=== PATIENT | male | born 1950 | race Caucasian/White ===

== ENCOUNTER 2023-09-18 11:41 | Inpatient (IN) | payer MEDICARE, MEDICAID, SELFPAY ==
[2023-09-18] VITALS (15 sets, daily range): BP systolic 121–136; BP diastolic 56–83; PULSE 63–128; RESP 14–42; TEMP 35.9–37.6; O2SAT 93–97; BMI 39.4; BMI 34.7
--- NOTE | 2023-09-18 11:56 | ED_ITS ---
HPI - SOB/Dyspnea General Chief Complaint: Shortness of Breath/Dyspnea Stated Complaint: Weakness Time Seen by Provider: 09/18/23 11:44 Source: patient, EMS, RN notes reviewed and old records reviewed Mode of arrival: EMS History of Present Illness HPI Narrative: 72-year-old male history of diabetes, BPH, hypertension, dyslipidemia, COPD on Symbicort and Advair with complaint of shortness of breath, cough, fever congestion for the past 3-4 days. Does normally use an inhaler but was having trouble using it today. He has had several falls recently with increasing generalized weakness. Patient has not hit his head. No loss of consciousness. Denies chest pain, does feel short of breath. Patient states he has had a cough, he states it has been productive it has been clear with no color changes. He describes generalized body aches little bit worse than usual but no pain except with cough in his chest. He has had increased shortness breath. No syncope. Denies new abdominal pain, no nausea or vomiting no other GI or urinary symptoms reported. No new swelling of extremities. Related Data Allergies Allergy/AdvReac Type Severity Reaction Status Date / Time No Known Drug Allergies Allergy Verified 09/18/23 13:24 Review of Systems Review of Systems ROS Unobtainable: All systems reviewed & are unremarkable except as noted in HPI and below Patient History Social History Smoking Status: Former smoker Exam Narrative Exam Narrative: GEN: Elderly appearing male, alert and oriented x 3, patient appears to be in moderate distress. HEENT: Atraumatic, pupils are equal round reactive to light, extraocular movements are intact, nares are clear, there is no conjunctival pallor. Throat is clear without any exudates, erythema, tonsillar enlargement or uvular deviation HEART: Tachycardic Regular rate and rhythm without murmur, clicks, rubs. pulses are equal in upper and lower extremities LUNGS:Lungs clear to auscultation, no wheezes, rales, crackles, chest moves symmetrically, positive for tachypnea. Positive for dry cough. ABD:bowel sounds normal, soft, non-tender, no guarding, rebound, rigidity, no masses noted, no hepatosplenomegaly :No CVA tenderness MSCL: Non-tender, no muscle atrophy, muscles strength 5/5 upper and lower extremities, full range of motion, globally weak, has difficulty standing safely at the side of the bed to urinate but moving all extremities normally. NEURO:CN 2-12 intact, sensation normal SKIN: Patient has multiple abrasions on upper extremities. Initial Vital Signs Initial Vital Signs: Vital Signs Pulse Rate 124 H 09/18/23 11:51 Pulse Oximetry 94 09/18/23 11:51 Course Orders Ordered: ED Orders 09/18/23 11:49 Respiratory Panel (Film Array) Stat 09/18/23 11:55 XR chest 1V Stat 09/18/23 12:05 Urinalysis and Microscopic Stat Urine Culture Stat 09/18/23 13:10 Complete Blood Count AUTO DIFF Stat Comprehensive Metabolic Panel Stat Lactate (Lactic Acid) Stat Lipase Stat NT-proBNP (BNP-Adult 18+) Stat PTT Partial Thromboplastin Luiz Stat Procalcitonin Stat Prothrombin Time INR Stat Troponin & CK Cardiac Panel Stat 09/18/23 13:35 Blood Culture Stat 09/18/23 14:31 CT kidney ureter bladder (KUB) Stat 09/18/23 15:10 Trop I [Troponin I] Stat Discontinued Medications Azithromycin (Azithromycin 250 Mg Tablet) 500 mg PO NOW ONE Stop: 09/18/23 13:18 Last Admin: 09/18/23 13:38 Dose: 500 mg Documented By: HORACIO Ceftriaxone Sodium 1,000 mg/ (Sodium Chloride) 100 mls @ 200 mls/hr IV NOW ONE Stop: 09/18/23 13:17 Last Infusion: 09/18/23 14:35 Dose: Infused Documented By: Admin: 09/18/23 13:39 Dose: 200 mls/hr Documented By: HORACIO Sodium Chloride (Normal Saline 0.9%) 1,000 mls @ 1,000 mls/hr IV BOLUS ONE Stop: 09/18/23 15:30 Last Admin: 09/18/23 15:41 Dose: 1,000 mls/hr Documented By: KARINA Methylprednisolone (Methylprednisolone 125 Mg/2 Ml Vial) 125 mg IV NOW ONE Stop: 09/18/23 12:05 Last Admin: 09/18/23 13:23 Dose: 125 mg Documented By: HORACIO Vital Signs Vital signs: Vital Signs - 8 hr 09/18/23 11:51 09/18/23 11:54 09/18/23 12:00 Temperature 99.7 F H Pulse Rate 124 H 122 H 128 H Respiratory Rate 14 Blood Pressure 128/83 Pulse Oximetry 94 96 97 Oxygen Delivery Method Room Air 09/18/23 12:08 09/18/23 12:08 09/18/23 12:30 Temperature Pulse Rate 114 H Respiratory Rate 39 H Blood Pressure 131/60 136/70 Pulse Oximetry 97 Oxygen Delivery Method 09/18/23 12:30 09/18/23 13:00 09/18/23 13:00 Temperature Pulse Rate 119 H 112 H Respiratory Rate 36 H Blood Pressure 134/65 Pulse Oximetry 96 94 Oxygen Delivery Method 09/18/23 13:30 09/18/23 14:00 09/18/23 14:30 Temperature Pulse Rate 109 H 99 H 102 H Respiratory Rate 26 H 42 H Blood Pressure Pulse Oximetry 97 93 96 Oxygen Delivery Method 09/18/23 15:39 09/18/23 15:40 09/18/23 15:40 Temperature Pulse Rate 90 91 H Respiratory Rate 28 H 24 Blood Pressure 135/69 Pulse Oximetry 96 94 Oxygen Delivery Method MDM - SOB/Dyspnea Lab Data 09/18/23 13:10 09/18/23 13:10 Labs: Lab Results 09/18/23 09/18/23 09/18/23 Range/Units 11:49 12:05 13:10 WBC 10.3 (4.5-11.0) X10^3/uL RBC 4.44 L (4.5-5.9) X10^6/uL Hgb 10.6 L (13.5-17.5) g/dL Hct 33.9 L (41-53) % MCV 76.5 L (80-100) fL MCH 23.9 L (26-34) PG MCHC 31.2 (30-36) % RDW 19.8 H (11.6-14.8) % Plt Count 234 (150-400) X10^3/uL Neut % (Auto) 81.7 H (50-75) % Lymph % (Auto) 6.3 L (25-40) % [place] % (Auto) 11.6 (3-14) % Eos % (Auto) 0.0 L (2-4) % Baso % (Auto) 0.4 (0-2) % Neut # (Auto) 8400 H (8053-4998) /uL Lymph # (Auto) 700 L (3699-0292) /uL [place] # (Auto) 1200 H (0-900) /uL Eos # (Auto) 0 (0-450) /uL Baso # (Auto) 0 (0-100) /uL PT 12.9 H (9.4-12.5) SECONDS INR 1.1 (0.9-1.3) APTT 27 (25.1-36.5) SECONDS Sodium 135 L (137-145) mmol/L Potassium 4.8 (3.4-5.1) mmol/L Chloride 104 (98-107) mmol/L Carbon Dioxide 20 L (22-32) mmol/L BUN 54 H (9-20) mg/dL Creatinine 2.18 H (0.66-1.25) mg/dL Estimated GFR 32 L (>60) mL/min BUN/Creatinine Ratio 24.8 H (6-22) Glucose 112 H (80-110) mg/dL Lactate 3.3 H (0.7-2.1) mmol/L Calcium 9.0 (8.4-10.2) mg/dL Total Bilirubin 0.8 (0.2-1.3) mg/dL AST 50 (17-59) IU/L ALT 24 (<50) IU/L Alkaline Phosphatase 98 (38-126) U/L Total Creatine Kinase 191 H (55-170) U/L Troponin I 0.035 H (0.01-0.034) ng/mL NT-Pro-B Natriuret Pep 1080 H (<125) pg/mL Total Protein 7.4 (6.3-8.2) g/dL Albumin 3.9 (3.5-5.0) g/dL Globulin 3.5 (1.7-4.1) g/dL Albumin/Globulin Ratio 1.1 (1.0-2.8) Lipase 39 (23-300) U/L Procalcitonin 5.49 H (<0.5) ng/mL Urine Color Yellow Urine Appearance Cloudy Urine pH 5.0 (4.5-8.0) Ur Specific [place] 1.020 (1.000-1.035) Urine Protein 1+ H (Negative) Urine Glucose (UA) Negative (Negative) g/dL Urine Ketones Negative (NEGATIVE) Urine Occult Blood 2+ H (Negative) Urine Nitrate Negative (Negative) Urine Bilirubin Negative (NEGATIVE) Urine Urobilinogen 0.2 (0.2) E.U./dL Ur Leukocyte Esterase 2+ H (NEGATIVE) Urine RBC 5-10/hpf H (0-5/HPF) Urine WBC 5-10/hpf H (0-5/HPF) Ur Squamous Epith Cells 1-5 /hpf (0-5/HPF) Urine Bacteria Many (>30) H (None) Ur Culture Indicated? Specimen cultured Vol Urine Centrifuged 10ml (spun) Chlamy pneumoniae PCR Not detected (Not Detect) Adenovirus (PCR) Not detected (Not Detect) B.parapertussis DNA PCR Not detected (Not Detecte) Coronavirus OC43 (PCR) Not detected (Not Detect) Coronavirus HKU1 (PCR) Not detected (Not Detect) Coronavirus 229E (PCR) Not detected (Not Detect) SARS-CoV-2 (PCR) Not detected (Not Detecte) Coronavirus NL63 (PCR) Not detected (Not Detect) Human Metapneumovir PCR Not detected (Not Detect) Influenza Type A (PCR) Not detected (Not Detect) Influenza Type B (PCR) Not detected (Not Detect) M. pneumoniae (PCR) Not detected (Not Detect) Parainfluenza 1 (PCR) Not detected (Not Detect) Parainfluenza 2 (PCR) Not detected (Not Detect) Parainfluenza 3 (PCR) Not detected (Not Detect) Parainfluenza 4 (PCR) Not detected (Not Detect) RSV (PCR) Not detected (Not Detect) Entero/Rhino (PCR) Not detected (Not Detect) 09/18/23 Range/Units 15:10 WBC (4.5-11.0) X10^3/uL RBC (4.5-5.9) X10^6/uL Hgb (13.5-17.5) g/dL Hct (41-53) % MCV (80-100) fL MCH (26-34) PG MCHC (30-36) % RDW (11.6-14.8) % Plt Count (150-400) X10^3/uL Neut % (Auto) (50-75) % Lymph % (Auto) (25-40) % [place] % (Auto) (3-14) % Eos % (Auto) (2-4) % Baso % (Auto) (0-2) % Neut # (Auto) (2273-2835) /uL Lymph # (Auto) (2595-7246) /uL [place] # (Auto) (0-900) /uL Eos # (Auto) (0-450) /uL Baso # (Auto) (0-100) /uL PT (9.4-12.5) SECONDS INR (0.9-1.3) APTT (25.1-36.5) SECONDS Sodium (137-145) mmol/L Potassium (3.4-5.1) mmol/L Chloride (98-107) mmol/L Carbon Dioxide (22-32) mmol/L BUN (9-20) mg/dL Creatinine (0.66-1.25) mg/dL Estimated GFR (>60) mL/min BUN/Creatinine Ratio (6-22) Glucose (80-110) mg/dL Lactate 1.1 (0.7-2.1) mmol/L Calcium (8.4-10.2) mg/dL Total Bilirubin (0.2-1.3) mg/dL AST (17-59) IU/L ALT (<50) IU/L Alkaline Phosphatase (38-126) U/L Total Creatine Kinase (55-170) U/L Troponin I 0.047 H (0.01-0.034) ng/mL NT-Pro-B Natriuret Pep (<125) pg/mL Total Protein (6.3-8.2) g/dL Albumin (3.5-5.0) g/dL Globulin (1.7-4.1) g/dL Albumin/Globulin Ratio (1.0-2.8) Lipase (23-300) U/L Procalcitonin (<0.5) ng/mL Urine Color Urine Appearance Urine pH (4.5-8.0) Ur Specific [place] (1.000-1.035) Urine Protein (Negative) Urine Glucose (UA) (Negative) g/dL Urine Ketones (NEGATIVE) Urine Occult Blood (Negative) Urine Nitrate (Negative) Urine Bilirubin (NEGATIVE) Urine Urobilinogen (0.2) E.U./dL Ur Leukocyte Esterase (NEGATIVE) Urine RBC (0-5/HPF) Urine WBC (0-5/HPF) Ur Squamous Epith Cells (0-5/HPF) Urine Bacteria (None) Ur Culture Indicated? Vol Urine Centrifuged Chlamy pneumoniae PCR (Not Detect) Adenovirus (PCR) (Not Detect) B.parapertussis DNA PCR (Not Detecte) Coronavirus OC43 (PCR) (Not Detect) Coronavirus HKU1 (PCR) (Not Detect) Coronavirus 229E (PCR) (Not Detect) SARS-CoV-2 (PCR) (Not Detecte) Coronavirus NL63 (PCR) (Not Detect) Human Metapneumovir PCR (Not Detect) Influenza Type A (PCR) (Not Detect) Influenza Type B (PCR) (Not Detect) M. pneumoniae (PCR) (Not Detect) Parainfluenza 1 (PCR) (Not Detect) Parainfluenza 2 (PCR) (Not Detect) Parainfluenza 3 (PCR) (Not Detect) Parainfluenza 4 (PCR) (Not Detect) RSV (PCR) (Not Detect) Entero/Rhino (PCR) (Not Detect) Imaging Data Chest x-ray: Radiologist's Impression: Close Chest X-Ray (Signed) Ophelia Carver - 09/18/23 [place] [address] XRay Report Signed Patient: Sánchez Hurst MR#: [id number] : 1950 Acct:[id number] Age/Sex: 72 / M Date of Service: 09/18/23 Loc: ED Accession Number: [id number] Procedure: XR chest 1V Ordering Provider: Tamika Cristina D.O. PROCEDURE: XR CHEST 1V INDICATIONS: sob, cough, cold TECHNIQUE: One view of the chest was acquired. COMPARISON: None. FINDINGS: Surgical changes and devices: Median sternotomy wires. Lungs and pleura: Small left pleural effusion versus pleural-parenchymal scarring. Patchy opacities in the left lung. Mediastinum: Mediastinal contours appear normal. Heart size is normal. Bones and chest wall: No suspicious bony lesions. Overlying soft tissues appear unremarkable. IMPRESSION: Small left pleural effusion versus pleural-parenchymal scarring. Patchy left lung opacities which could represent pneumonia or parenchymal scarring. Dictated by: Ophelia Carver MD, PhD on 09/18/2023 at 13:10 Approved by: Ophelia Carver MD, PhD on 09/18/2023 at 13:11 CT KUB: Radiologist's Impression: [address] [address] [address] Scan Report Signed Patient: Sánchez Hurst MR#: [id number] : 1950 Acct:[id number] Age/Sex: 72 / M Date of Service: 09/18/23 Loc: ED Accession Number: [id number] Procedure: CT kidney ureter bladder (KUB) Ordering Provider: Tamika Cristina D.O. PROCEDURE: CT KIDNEY URETER BLADDER (KUB) INDICATIONS: sob, ? bala vs ckd TECHNIQUE: Axial sections were acquired from the lung bases to the pubic symphysis. Coronal and sagittal reformats were performed. For radiation dose reduction, the following was used: automated exposure control, adjustment of mA and/or kV according to patient size. COMPARISON: None. FINDINGS: Image quality: Degraded by patient motion artifact Lower Chest: Small left pleural effusion with associated pleural thickening and pleural calcifications. URINARY: Right Kidney: No stones or hydronephrosis. Right Ureter: No hydroureter. Left Kidney: No stones or hydronephrosis. Left Ureter: No hydroureter. Bladder: 2.8 x 1.7 x 3.1 centimeter soft tissue density mass in the posterior left margin of the urinary bladder highly suspicious for malignancy. No stones. ABDOMEN: Liver: No contour-deforming solid mass. Gallbladder: Small calcified gallstone. Biliary ducts: No biliary dilation. Pancreas: No ductal dilation. Spleen: Size is within normal limits. Adrenal Glands: 1.5 centimeter low-density left adrenal adenoma. Stomach and Bowel: Normal colonic caliber, without significant wall thickening. A few colonic diverticuli without evidence of diverticulitis. The appendix is not definitely visualized, however no inflammatory changes or free fluid noted adjacent to the cecum. Peritoneum: No abnormal intraperitoneal fluid. No free air. Ventral Wall: No hernia. Abdominal Nodes: No enlarged retroperitoneal or mesenteric lymph nodes. Vessels: Aorta and inferior vena cava are normal in size. Scattered atherosclerotic calcifications involving the abdominal and pelvic vasculature. PELVIS: Pelvic Organs: Unremarkable. Pelvic Nodes: Unremarkable. Miscellaneous: No inguinal hernias are seen. Bones: Chronic right obturator ring fracture. Spine degenerative disc disease and facet arthropathy. IMPRESSION: No renal stone or hydronephrosis. 2.8 x 1.7 x 3.1 centimeter bladder mass highly suspicious for malignancy. Recommend non emergent urology consultation. Small left pleural effusion with associated pleural thickening and pleural calcifications. Dictated by: Ophelia Carver MD, PhD on 09/18/2023 at 15:21 Approved by: Ophelia Carver MD, PhD on 09/18/2023 at 15:28 ECG Data Attestation: I personally reviewed and interpreted this ECG as follows: Prior ECG tracings: not available for review Interpretation: Sinus rhythm sinus arrhythmia, rate of 91 MO 154 QRS of 94 QTC of 418. Nonspecific change patient is quite low voltage but appears to have a P wave with each QRS. No prior for comparison. Sinus rhythm rate of 84 MO 164 QRS of 104 QTC of 401. Patient appears to have sinus rhythm but does have extra PACs does not appear to be completely marching through, no prolonging or dropped beats. MDM Narrative Medical decision making narrative: 72-year-old male with complaint of fevers chills cold cough congestion shortness of breath that is increased over the past several days patient has known COPD had a DuoNeb EN route patient feels somewhat better. Has not been hypoxic but has been tachycardic. Has mildly tachypneic some mild accessory muscle use. Lungs are clear on examination. Patient's labs show white count of 10 hemoglobin is 10.6 microcytosis, platelets of 234, predominance of neutrophils. Procalcitonin is 5.49 Coags are negative Sodium is 135 potassium 4 8 chloride 104 CO2 is 20 with a BUN of 54 and creatinine 2.18, patient states he is very thirsty wants to drink a lot of water here in the department. Glucose is 112 with a lactate of 3.3 calcium 9 bilirubin is 0.8 with a AST and ALT of 15 and 24, negative lipase at 39. Indeterminate troponin at 0.035, troponin was repeated at 2 hours UA shows 1+ protein 2+ blood, 2+ leuks with 5-10 RBCs 5-10 WBCs many bacteria. Chest x-ray shows patchy left lung opacities and small left pleural effusion/parenchymal scarring. CT KUB shows no renal stone or hydro, 3 cm bladder mass highly suspicious for malignancy recommended nonemergent Urology consult, small left pleural effusion associated pleural thickening and pleural calcifications. EKG shows what appears to be sinus rhythm sinus arrhythmia although could be atrial fibrillation but appears to have P waves with each QRS although very low voltage. Repeat EKG shows sinus rhythm, patient does have what appears to be extra PACs, does not appear to March out as a third-degree block and does not appear to be dropping any beats. Patient treated for community-acquired pneumonia with Rocephin and azithromycin, this should also give some coverage for UTI with Rocephin. Based on renal function no priors for comparison CT KUB was obtained as well as a L of fluids. Patient has been quite weak with multiple falls, appears to have pneumonia, likely dehydration with likely BALA no prior labs for comparison. Patient's lactate did improve to 1.1, repeat troponin is 0.047 on repeat. Spoke with Dr. Davidson, hospitalist who accepts for admission. Patient has received fluids including Rocephin and azithromycin. Did get dose of Solu-Medrol for COPD. Discharge Plan Departure Patient Disposition: Admitted As Inpatient Clinical Impression: Community acquired pneumonia, Acute UTI, Weakness, Dehydration, BALA (acute kidney injury) Admit Date/Time: 09/18/23 15:53 Admit Provider: Odilon Davidson
--- NOTE | 2023-09-18 12:23 | PC.NURSE ---
pt states he has been feeling SOB since Sunday, he then started feeling weak and has fallen a couple of times.
--- NOTE | 2023-09-18 12:36 | PC.NURSE ---
lab came to draw blood from patient. Patient is unable to hold still due to coughing and pain. Lab was unsuccessful at draw. Spoke with patient that we need blood, explained ultrasound IV procedure to patient emphasizing that he needs to hold very still for procedure. Pt verbalized understanding.
[2023-09-18 12:45] LABS: Adenovirus Not Detected (Not Detect); B. parapertussis Not Detected (Not Detecte); Bordetella pertussis Not Detected (Not Detect); Chlamydophila pneumoniae Not Detected (Not Detect); Coronavirus 229E Not Detected (Not Detect); Coronavirus HKU1 Not Detected (Not Detect); Coronavirus NL 63 Not Detected (Not Detect); Coronavirus OC43 Not Detected (Not Detect); Human Metapneumovirus Not Detected (Not Detect); Human Rhinovirus/Enterovirus Not Detected (Not Detect); Influenza A Not Detected (Not Detect); Influenza B Not Detected (Not Detect); Mycoplasma pneumoniae Not Detected (Not Detect); Parainfluenza Virus 1 Not Detected (Not Detect); Parainfluenza Virus 2 Not Detected (Not Detect); Parainfluenza Virus 3 Not Detected (Not Detect); Parainfluenza Virus 4 Not Detected (Not Detect); Respiratory Syncytial Virus Not Detected (Not Detect); SARS- CoV-2 Not Detected (Not Detecte)
[2023-09-18 13:23] LABS: Add Manual Diff / Slide Review NO; Basophils Absolute Auto 0 /uL (0-100); Basophils Percent Auto 0.4 % (0-2); Eosinophils Absolute Auto 0 /uL (0-450); Hematocrit 33.9 % (41-53); Hemoglobin 10.6 g/dL (13.5-17.5); Lymphocytes Absolute Auto 700 /uL (1100-4500); Lymphocytes Percent Auto 6.3 % (25-40); Mean Corpuscular HGB Conc 31.2 % (30-36); Mean Corpuscular Hemoglobin 23.9 PG (26-34); Mean Corpuscular Volume 76.5 fL (80-100); Monocytes Absolute Auto 1200 /uL (0-900); Monocytes Percent Auto 11.6 % (3-14); Neutrophils Absolute Auto 8400 /uL (1500-7000); Neutrophils Percent Auto 81.7 % (50-75); Platelet Count 234 X10^3/uL (150-400); Red Blood Cell Count 4.44 X10^6/uL (4.5-5.9); Red Cell Distribution Width 19.8 % (11.6-14.8); White Blood Cell Count 10.3 X10^3/uL (4.5-11.0)
[2023-09-18] MEDS: methylPREDNISolone 125 MG/2 ML VIAL IV (13:23)
[2023-09-18 13:33] LABS: INR 1.1 (0.9-1.3); Prothrombin Time 12.9 SECONDS (9.4-12.5)
[2023-09-18 13:35] LABS: PTT Partial Thromboplastin Tim 27 SECONDS (25.1-36.5)
[2023-09-18 13:38] LABS: Lactate (Lactic Acid) 3.3 mmol/L (0.7-2.1)
[2023-09-18] MEDS: AZITHROMYCIN 250 MG TABLET 500 MG PO (13:38)
[2023-09-18 13:39] LABS: Alanine Aminotransferase 24 IU/L (<50); Albumin 3.9 g/dL (3.5-5.0); Albumin Globulin Ratio 1.1 (1.0-2.8); Alkaline Phosphatase 98 U/L (38-126); Aspartate Aminotransferase 50 IU/L (17-59); BUN Creatinine Ratio 24.8 (6-22); Bilirubin Total 0.8 mg/dL (0.2-1.3); Blood Urea Nitrogen 54 mg/dL (9-20); Carbon Dioxide 20 mmol/L (22-32); Chloride 104 mmol/L (98-107); Creatine Kinase 191 U/L (55-170); Estimated Glomerular Filt Rate 32 mL/min (>60); Globulin 3.5 g/dL (1.7-4.1); Glucose 112 mg/dL (80-110); HEMOLYSIS 48 (0-50); Lipase 39 U/L (23-300); Potassium 4.8 mmol/L (3.4-5.1); Sodium 135 mmol/L (137-145); Total Protein 7.4 g/dL (6.3-8.2)
[2023-09-18] MEDS: cefTRIAXone 1,000 MG in SODIUM CHLORIDE 0.9% 100 ML 200 MG IV (13:39)
--- NOTE | 2023-09-18 13:42 | PC.NURSE ---
pt asked to have look at his bottom, he feels like he has a sore there. upon spreading of his buttocks there was a visible small tear on his skin approximately 0.5-1 inch from his rectum.
[2023-09-18 13:49] LABS: NT-proBNP (BNP-Adult 18+) 1080 pg/mL (<125)
[2023-09-18 13:51] LABS: Troponin I 0.035 ng/mL (0.01-0.034)
[2023-09-18 13:57] LABS: Procalcitonin 5.49 ng/mL (<0.5)
[2023-09-18 14:28] LABS: Appearance Urine UA CLOUDY; Bilirubin Urine UA NEGATIVE (NEGATIVE); Color Urine UA YELLOW; Glucose Urine UA NEGATIVE (Negative); Ketones Urine UA NEGATIVE (NEGATIVE); Leukocyte Esterase Urine UA 2+ (NEGATIVE); Nitrite Urine UA NEGATIVE (Negative); Occult Blood Urine UA 2+ (Negative); Protein Urine UA 1+ (Negative); Urobilinogen Urine UA 0.2 E.U./dL (0.2)
[2023-09-18 14:30] LABS: Urine Volume 10mL (spun)
--- NOTE | 2023-09-18 14:31 | DI.CT.S_ITS ---
PROCEDURE: CT KIDNEY URETER BLADDER (KUB) INDICATIONS: sob, ? crispin vs ckd TECHNIQUE: Axial sections were acquired from the lung bases to the pubic symphysis. Coronal and sagittal reformats were performed. For radiation dose reduction, the following was used: automated exposure control, adjustment of mA and/or kV according to patient size. COMPARISON: None. FINDINGS: Image quality: Degraded by patient motion artifact Lower Chest: Small left pleural effusion with associated pleural thickening and pleural calcifications. URINARY: Right Kidney: No stones or hydronephrosis. Right Ureter: No hydroureter. Left Kidney: No stones or hydronephrosis. Left Ureter: No hydroureter. Bladder: 2.8 x 1.7 x 3.1 centimeter soft tissue density mass in the posterior left margin of the urinary bladder highly suspicious for malignancy. No stones. ABDOMEN: Liver: No contour-deforming solid mass. Gallbladder: Small calcified gallstone. Biliary ducts: No biliary dilation. Pancreas: No ductal dilation. Spleen: Size is within normal limits. Adrenal Glands: 1.5 centimeter low-density left adrenal adenoma. Stomach and Bowel: Normal colonic caliber, without significant wall thickening. A few colonic diverticuli without evidence of diverticulitis. The appendix is not definitely visualized, however no inflammatory changes or free fluid noted adjacent to the cecum. Peritoneum: No abnormal intraperitoneal fluid. No free air. Ventral Wall: No hernia. Abdominal Nodes: No enlarged retroperitoneal or mesenteric lymph nodes. Vessels: Aorta and inferior vena cava are normal in size. Scattered atherosclerotic calcifications involving the abdominal and pelvic vasculature. PELVIS: Pelvic Organs: Unremarkable. Pelvic Nodes: Unremarkable. Miscellaneous: No inguinal hernias are seen. Bones: Chronic right obturator ring fracture. Spine degenerative disc disease and facet arthropathy. IMPRESSION: No renal stone or hydronephrosis. 2.8 x 1.7 x 3.1 centimeter bladder mass highly suspicious for malignancy. Recommend non emergent urology consultation. Small left pleural effusion with associated pleural thickening and pleural calcifications. Dictated by: Ophelia Carver MD, PhD on 09/18/2023 at 15:21 Approved by: Ophelia Carver MD, PhD on 09/18/2023 at 15:28
[2023-09-18 14:32] LABS: Bacteria Urine Many (>30); Culture Indicated Urine Specimen Cultured; RBC Urine 5-10/HPF (0-5/HPF); Squamous Epithelial Cell Urine 1-5 /HPF (0-5/HPF); WBC Urine 5-10/HPF (0-5/HPF)
[2023-09-18 14:52] LABS: Reflexed Lactate in 2 Hours Y
[2023-09-18 15:37] LABS: Lactate 2HR (Lactic Acid Rflx) 1.1 mmol/L (0.7-2.1)
[2023-09-18] MEDS: SODIUM CHLORIDE 0.9% 1,000 ML 1000 ML IV (15:41)
[2023-09-18 15:50] LABS: Troponin I 0.047 ng/mL (0.01-0.034)
--- NOTE | 2023-09-18 16:09 | PM.HP.1 ---
History of Present Illness History of Present Illness Date Patient Seen: 09/18/23 Chief complaint: Weakness Narrative: The patient is a 72-year-old male who presented to the ER with dyspnea, cough, fever, and weakness. He has a history of diabetes 2, BPH, hypertension, and COPD. In the emergency department there was concern for pneumonia, and he was given IV antibiotics as well as IV fluids for mild hypotension. The patient did have a mild lactic acidosis. The patient has also mentioned multiple falls to the emergency physician. WBC was 10.3, creatinine 2.18, CO2 20, glucose 112. Urinalysis positive for blood and leukocytes. Troponin 0.047, 2nd lactic acid 1.1 compared to the 1st which was 3.3. Procalcitonin was 5.49. The chest x-ray revealed patchy left lung opacities. An abdomen pelvis CT revealed a 2.8 x 1.7 x 3.1 cm bladder mass. It also revealed a small pleural effusion on the left with pleural thickening and calcifications. He was given empiric antibiotics after blood cultures for probable pneumonia, ceftriaxone and azithromycin. He was also given methylprednisolone 125 mg IV for possible COPD. He has been ill for a couple of days with a cough and more short of breath with increased exertional dyspnea and wheezing. He has history of COPD and quit smoking many years ago. He has also had a lot of issues with his prostate and urinary difficulty but has had more progressive dysuria recently. He denies any fevers or chills but did become profoundly weak. [place] had more depression and spent more time in his room since that time. He is also become much more sedentary. He is DNR and notes that he has no will to live especially if he has not functional. He notes that he has been unable to walk the last several days. [facility] Social History household members: family Smoking Status: Former smoker alcohol intake: current Meds Home Medications and Allergies Home Medications Medication Instructions Recorded Confirmed Type allopurinol 300 mg tablet 300 mg PO DAILY 09/18/23 09/18/23 History atorvastatin 40 mg tablet 40 mg PO BEDTIME 09/18/23 09/18/23 History budesonide-formoterol HFA 160 1 puff inhalation BID 09/18/23 09/18/23 History mcg-4.5 mcg/actuation aerosol inhaler (Symbicort) clopidogrel 75 mg tablet 75 mg PO DAILY 09/18/23 09/18/23 History clotrimazole 1 % topical cream 1 applic topical DAILY 09/18/23 09/18/23 History finasteride 5 mg tablet 5 mg PO DAILY 09/18/23 09/18/23 History fluticasone propionate 50 2 spray intranasal DAILY 09/18/23 09/18/23 History mcg/actuation nasal spray,suspension furosemide 40 mg tablet 40 mg PO DAILY 09/18/23 09/18/23 History glipizide 5 mg tablet 5 mg PO BID 09/18/23 09/18/23 History hydrocortisone 2.5 % topical cream 1 applic topical DAILY 09/18/23 09/18/23 History ketoconazole 2 % topical cream 1 applic topical 2XW 09/18/23 09/18/23 History lisinopril 2.5 mg tablet 2.5 mg PO DAILY 09/18/23 09/18/23 History metformin 850 mg tablet 850 mg PO BID 09/18/23 09/18/23 History metoprolol succinate 50 mg 50 mg PO DAILY 09/18/23 09/18/23 History tablet,extended release 24 hr omeprazole 20 mg capsule,delayed 20 mg PO DAILY 09/18/23 09/18/23 History release tamsulosin 0.4 mg capsule 0.4 mg PO DAILY 09/18/23 09/18/23 History tiotropium bromide 18 mcg capsule 18 mcg inhalation DAILY 09/18/23 09/18/23 History with inhalation device (Spiriva with HandiHaler) Allergies Allergy/AdvReac Type Severity Reaction Status Date / Time No Known Drug Allergies Allergy Verified 09/18/23 13:24 Review of Systems Review of Systems Narrative: All else reviewed and otherwise unremarkable except as noted in the history and physical. Exam Vital Signs (past 8 hours): - 09/18/23 11:51 09/18/23 11:54 09/18/23 12:00 Temperature 99.7 F H Pulse Rate 124 H 122 H 128 H Respiratory Rate 14 Blood Pressure 128/83 Pulse Oximetry 94 96 97 Oxygen Delivery Method Room Air 09/18/23 12:08 09/18/23 12:08 09/18/23 12:30 Temperature Pulse Rate 114 H Respiratory Rate 39 H Blood Pressure 131/60 136/70 Pulse Oximetry 97 Oxygen Delivery Method 09/18/23 12:30 09/18/23 13:00 09/18/23 13:00 Temperature Pulse Rate 119 H 112 H Respiratory Rate 36 H Blood Pressure 134/65 Pulse Oximetry 96 94 Oxygen Delivery Method 09/18/23 13:30 09/18/23 14:00 09/18/23 14:30 Temperature Pulse Rate 109 H 99 H 102 H Respiratory Rate 26 H 42 H Blood Pressure Pulse Oximetry 97 93 96 Oxygen Delivery Method 09/18/23 15:39 09/18/23 15:40 09/18/23 15:40 Temperature Pulse Rate 90 91 H Respiratory Rate 28 H 24 Blood Pressure 135/69 Pulse Oximetry 96 94 Oxygen Delivery Method Oxygen Delivery Method Room Air Narrative Exam Narrative: NAD, alert and oriented, fluent speech, calm. Somewhat flat affect. Normocephalic skull, EOMI, anicteric sclera, symmetric pupils. Oropharynx unremarkable, no droop. Neck supple, midline trachea, no adenopathy. Lungs clear, normal rate and effort. Scattered wheezing. Heart regular, no murmur gallop or rub. Abdomen is soft, non distended and non tender. Extremities are free of edema. Skin is free of rash or lesions. Joints are not swollen or deformed. Judgment appears to be normal. Objective Imaging Chest x-ray: Radiologist's impression: Small left pleural effusion versus pleural-parenchymal scarring. Patchy left lung opacities which could represent pneumonia or parenchymal scarring. CT scan - abdomen: Radiologist's impression: No renal stone or hydronephrosis. 2.8 x 1.7 x 3.1 centimeter bladder mass highly suspicious for malignancy. Recommend non emergent urology consultation. Small left pleural effusion with associated pleural thickening and pleural calcifications. Labs 09/18/23 13:10 09/18/23 13:10 Labs: Laboratory Results - last 24 hr 09/18/23 09/18/23 09/18/23 11:49 12:05 13:10 WBC 10.3 RBC 4.44 L Hgb 10.6 L Hct 33.9 L MCV 76.5 L MCH 23.9 L MCHC 31.2 RDW 19.8 H Plt Count 234 Neut % (Auto) 81.7 H Lymph % (Auto) 6.3 L [place] % (Auto) 11.6 Eos % (Auto) 0.0 L Baso % (Auto) 0.4 Neut # (Auto) 8400 H Lymph # (Auto) 700 L [place] # (Auto) 1200 H Eos # (Auto) 0 Baso # (Auto) 0 PT 12.9 H INR 1.1 APTT 27 Sodium 135 L Potassium 4.8 Chloride 104 Carbon Dioxide 20 L BUN 54 H Creatinine 2.18 H Estimated GFR 32 L BUN/Creatinine Ratio 24.8 H Glucose 112 H Lactate 3.3 H Calcium 9.0 Total Bilirubin 0.8 AST 50 ALT 24 Alkaline Phosphatase 98 Total Creatine Kinase 191 H Troponin I 0.035 H NT-Pro-B Natriuret Pep 1080 H Total Protein 7.4 Albumin 3.9 Globulin 3.5 Albumin/Globulin Ratio 1.1 Lipase 39 Procalcitonin 5.49 H Urine Color Yellow Urine Appearance Cloudy Urine pH 5.0 Ur Specific [place] 1.020 Urine Protein 1+ H Urine Glucose (UA) Negative Urine Ketones Negative Urine Occult Blood 2+ H Urine Nitrate Negative Urine Bilirubin Negative Urine Urobilinogen 0.2 Ur Leukocyte Esterase 2+ H Urine RBC 5-10/hpf H Urine WBC 5-10/hpf H Ur Squamous Epith Cells 1-5 /hpf Urine Bacteria Many (>30) H Ur Culture Indicated? Specimen cultured Vol Urine Centrifuged 10ml (spun) Chlamy pneumoniae PCR Not detected Adenovirus (PCR) Not detected B.parapertussis DNA PCR Not detected Coronavirus OC43 (PCR) Not detected Coronavirus HKU1 (PCR) Not detected Coronavirus 229E (PCR) Not detected SARS-CoV-2 (PCR) Not detected Coronavirus NL63 (PCR) Not detected Human Metapneumovir PCR Not detected Influenza Type A (PCR) Not detected Influenza Type B (PCR) Not detected M. pneumoniae (PCR) Not detected Parainfluenza 1 (PCR) Not detected Parainfluenza 2 (PCR) Not detected Parainfluenza 3 (PCR) Not detected Parainfluenza 4 (PCR) Not detected RSV (PCR) Not detected Entero/Rhino (PCR) Not detected 09/18/23 15:10 WBC RBC Hgb Hct MCV MCH MCHC RDW Plt Count Neut % (Auto) Lymph % (Auto) [place] % (Auto) Eos % (Auto) Baso % (Auto) Neut # (Auto) Lymph # (Auto) [place] # (Auto) Eos # (Auto) Baso # (Auto) PT INR APTT Sodium Potassium Chloride Carbon Dioxide BUN Creatinine Estimated GFR BUN/Creatinine Ratio Glucose Lactate 1.1 Calcium Total Bilirubin AST ALT Alkaline Phosphatase Total Creatine Kinase Troponin I 0.047 H NT-Pro-B Natriuret Pep Total Protein Albumin Globulin Albumin/Globulin Ratio Lipase Procalcitonin Urine Color Urine Appearance Urine pH Ur Specific [place] Urine Protein Urine Glucose (UA) Urine Ketones Urine Occult Blood Urine Nitrate Urine Bilirubin Urine Urobilinogen Ur Leukocyte Esterase Urine RBC Urine WBC Ur Squamous Epith Cells Urine Bacteria Ur Culture Indicated? Vol Urine Centrifuged Chlamy pneumoniae PCR Adenovirus (PCR) B.parapertussis DNA PCR Coronavirus OC43 (PCR) Coronavirus HKU1 (PCR) Coronavirus 229E (PCR) SARS-CoV-2 (PCR) Coronavirus NL63 (PCR) Human Metapneumovir PCR Influenza Type A (PCR) Influenza Type B (PCR) M. pneumoniae (PCR) Parainfluenza 1 (PCR) Parainfluenza 2 (PCR) Parainfluenza 3 (PCR) Parainfluenza 4 (PCR) RSV (PCR) Entero/Rhino (PCR) Assessment & Plan Assessment & Plan narrative: 1. Community-acquired pneumonia, present on admission and active. 2. Sepsis with tachypnea, tachycardia, and lactic acidosis with a source of infection being pneumonia. Present on admission and active. 3. Acute kidney injury, present on admission and active. 4. Lactic acidosis, present on admission and active. 5. COPD, present on admission and active. 6. DM 2, present on admission and active. 7. BPH, present on admission and active. 8. HLD, present on admission and active. Plan: -empiric antibiotics and IV fluids tonight. Blood cultures drawn and pending. -lactic acid has normalized. We will monitor renal function. -continue corticosteroids, DuoNebs as needed. -we will start an antidepressant tomorrow, he is agreeable to this. -physical therapy evaluation and discharge planning. He is DNR, he confirms this tonight. His sister is proxy decision maker. Time Spent With Patient Time with patient: 30 to 49 minutes with 50% spent counseling/coordinating care Quality MIPS - Admit I confirm the patient?s Advance Care Plan is present, Code status is documented, Surrogate decision maker is in patient?s record [If Yes, STOP here]: Yes MIPS - Meds 'Current medications' to include all prescriptions, [id number] products, herbals, cannabis/cannabidiol products, and vitamin/mineral/dietary (nutritional) supplements. I have utilized all available resources to obtain, update, or review the patient?s current medications. [If Yes, STOP here]: Yes
[2023-09-18] MEDS: SODIUM CHLORIDE 0.9% 1,000 ML 100 ML IV (18:04)
[2023-09-18] MEDS: HEPARIN 5,000 UNIT/ML VIAL 5000 UNIT SUBCUT (21:59)
[2023-09-19] VITALS (10 sets, daily range): BP systolic 123–140; BP diastolic 58–72; PULSE 65–84; RESP 16–19; TEMP 36.4–36.7; O2SAT 96–99
[2023-09-19] MEDS: cefTRIAXone 1,000 MG in SODIUM CHLORIDE 0.9% 100 ML 200 MG IV (04:37)
[2023-09-19 05:56] LABS: Add Manual Diff / Slide Review NO; Basophils Absolute Auto 100 /uL (0-100); Basophils Percent Auto 1.2 % (0-2); Eosinophils Absolute Auto 100 /uL (0-450); Eosinophils Percent Auto 0.9 % (2-4); Hematocrit 29.3 % (41-53); Hemoglobin 9.3 g/dL (13.5-17.5); Lymphocytes Absolute Auto 500 /uL (1100-4500); Lymphocytes Percent Auto 5.8 % (25-40); Mean Corpuscular HGB Conc 31.7 % (30-36); Mean Corpuscular Hemoglobin 24.5 PG (26-34); Mean Corpuscular Volume 77.1 fL (80-100); Monocytes Absolute Auto 600 /uL (0-900); Monocytes Percent Auto 6.5 % (3-14); Neutrophils Absolute Auto 7800 /uL (1500-7000); Neutrophils Percent Auto 85.6 % (50-75); Platelet Count 199 X10^3/uL (150-400); Red Cell Distribution Width 19.6 % (11.6-14.8); White Blood Cell Count 9.1 X10^3/uL (4.5-11.0)
[2023-09-19 06:02] LABS: BUN Creatinine Ratio 35.8 (6-22); Blood Urea Nitrogen 48 mg/dL (9-20); Calcium 8.4 mg/dL (8.4-10.2); Carbon Dioxide 19 mmol/L (22-32); Chloride 107 mmol/L (98-107); Estimated Glomerular Filt Rate 57 mL/min (>60); Glucose 212 mg/dL (80-110); Potassium 4.8 mmol/L (3.4-5.1); Sodium 134 mmol/L (137-145)
[2023-09-19 06:11] LABS: HEMOLYSIS 90 (0-50)
[2023-09-19] MEDS: SODIUM CHLORIDE 0.9% 1,000 ML 100 ML IV (06:25)
--- NOTE | 2023-09-19 07:42 | PM.PN.1 ---
Subjective Subjective Interval history: He has having a lot of abdominal cramps and feels as though he needs help having a bowel movement. He has had success with a suppository before and requests this. His breathing is about the same to slightly improved. He has an ongoing cough and mild shortness of breath. Exam Vital Signs (past 8 hours): - 09/19/23 04:38 Temperature 98.1 F Pulse Rate 69 Respiratory Rate 18 Blood Pressure 128/68 Pulse Oximetry 97 Oxygen Flow Rate 0 Oxygen Delivery Method Room Air Oxygen Flow Rate 0 Narrative Exam Narrative: NAD, alert and oriented. Fluent speech. Lungs are clear, normal rate and effort. Heart is regular, no murmur gallop or rub. Abdomen is soft, and distended. Extremities are free of edema. A fair amount of ecchymosis over left greater than right arm. Objective Labs 09/19/23 05:10 09/19/23 05:10 Labs: Laboratory Results - last 24 hr 09/18/23 09/18/23 09/18/23 11:49 12:05 13:10 WBC 10.3 RBC 4.44 L Hgb 10.6 L Hct 33.9 L MCV 76.5 L MCH 23.9 L MCHC 31.2 RDW 19.8 H Plt Count 234 Neut % (Auto) 81.7 H Lymph % (Auto) 6.3 L [place] % (Auto) 11.6 Eos % (Auto) 0.0 L Baso % (Auto) 0.4 Neut # (Auto) 8400 H Lymph # (Auto) 700 L [place] # (Auto) 1200 H Eos # (Auto) 0 Baso # (Auto) 0 PT 12.9 H INR 1.1 APTT 27 Sodium 135 L Potassium 4.8 Chloride 104 Carbon Dioxide 20 L BUN 54 H Creatinine 2.18 H Estimated GFR 32 L BUN/Creatinine Ratio 24.8 H Glucose 112 H Lactate 3.3 H Calcium 9.0 Total Bilirubin 0.8 AST 50 ALT 24 Alkaline Phosphatase 98 Total Creatine Kinase 191 H Troponin I 0.035 H NT-Pro-B Natriuret Pep 1080 H Total Protein 7.4 Albumin 3.9 Globulin 3.5 Albumin/Globulin Ratio 1.1 Lipase 39 Procalcitonin 5.49 H Urine Color Yellow Urine Appearance Cloudy Urine pH 5.0 Ur Specific [place] 1.020 Urine Protein 1+ H Urine Glucose (UA) Negative Urine Ketones Negative Urine Occult Blood 2+ H Urine Nitrate Negative Urine Bilirubin Negative Urine Urobilinogen 0.2 Ur Leukocyte Esterase 2+ H Urine RBC 5-10/hpf H Urine WBC 5-10/hpf H Ur Squamous Epith Cells 1-5 /hpf Urine Bacteria Many (>30) H Ur Culture Indicated? Specimen cultured Vol Urine Centrifuged 10ml (spun) Chlamy pneumoniae PCR Not detected Adenovirus (PCR) Not detected B.parapertussis DNA PCR Not detected Coronavirus OC43 (PCR) Not detected Coronavirus HKU1 (PCR) Not detected Coronavirus 229E (PCR) Not detected SARS-CoV-2 (PCR) Not detected Coronavirus NL63 (PCR) Not detected Human Metapneumovir PCR Not detected Influenza Type A (PCR) Not detected Influenza Type B (PCR) Not detected M. pneumoniae (PCR) Not detected Parainfluenza 1 (PCR) Not detected Parainfluenza 2 (PCR) Not detected Parainfluenza 3 (PCR) Not detected Parainfluenza 4 (PCR) Not detected RSV (PCR) Not detected Entero/Rhino (PCR) Not detected 09/18/23 09/19/23 15:10 05:10 WBC 9.1 RBC 3.80 L Hgb 9.3 L Hct 29.3 L MCV 77.1 L MCH 24.5 L MCHC 31.7 RDW 19.6 H Plt Count 199 Neut % (Auto) 85.6 H Lymph % (Auto) 5.8 L [place] % (Auto) 6.5 Eos % (Auto) 0.9 L Baso % (Auto) 1.2 Neut # (Auto) 7800 H Lymph # (Auto) 500 L [place] # (Auto) 600 Eos # (Auto) 100 Baso # (Auto) 100 PT INR APTT Sodium 134 L Potassium 4.8 Chloride 107 Carbon Dioxide 19 L BUN 48 H Creatinine 1.34 H Estimated GFR 57 L BUN/Creatinine Ratio 35.8 H Glucose 212 H D Lactate 1.1 Calcium 8.4 Total Bilirubin AST ALT Alkaline Phosphatase Total Creatine Kinase Troponin I 0.047 H NT-Pro-B Natriuret Pep Total Protein Albumin Globulin Albumin/Globulin Ratio Lipase Procalcitonin Urine Color Urine Appearance Urine pH Ur Specific [place] Urine Protein Urine Glucose (UA) Urine Ketones Urine Occult Blood Urine Nitrate Urine Bilirubin Urine Urobilinogen Ur Leukocyte Esterase Urine RBC Urine WBC Ur Squamous Epith Cells Urine Bacteria Ur Culture Indicated? Vol Urine Centrifuged Chlamy pneumoniae PCR Adenovirus (PCR) B.parapertussis DNA PCR Coronavirus OC43 (PCR) Coronavirus HKU1 (PCR) Coronavirus 229E (PCR) SARS-CoV-2 (PCR) Coronavirus NL63 (PCR) Human Metapneumovir PCR Influenza Type A (PCR) Influenza Type B (PCR) M. pneumoniae (PCR) Parainfluenza 1 (PCR) Parainfluenza 2 (PCR) Parainfluenza 3 (PCR) Parainfluenza 4 (PCR) RSV (PCR) Entero/Rhino (PCR) [facility] Social History household members: family Smoking Status: Former smoker alcohol intake: current Assessment & Plan Assessment & Plan narrative: 1. Community-acquired pneumonia, present on admission and active. 2. Sepsis with tachypnea, tachycardia, and lactic acidosis with a source of infection being pneumonia. Present on admission and active. 3. Acute kidney injury, present on admission and active. 4. Lactic acidosis, present on admission and active. 5. COPD, present on admission and active. 6. DM 2, present on admission and active. 7. BPH, present on admission and active. 8. HLD, present on admission and active. 9. Constipation and abdominal cramping, new and active. 10. Depression, present on admission and active. 11. Bladder mass was found incidentally on CT scan, present on admission and active. Plan: -continue empiric antibiotics and IV fluids . Blood cultures drawn and pending. -We will monitor renal function. -continue corticosteroids, DuoNebs as needed. -we will start an antidepressant tomorrow, he is agreeable to this. -physical therapy evaluation and discharge planning. -Dulcolax suppository now -Zoloft 25 HS start today. -resume all usual medications today. He is DNR, he confirms this tonight. His sister is proxy decision maker. Quality VTE Deep Vein Thrombosis/Pulmonary Embolism Present on Admission: No
[2023-09-19] MEDS: INSULIN LISPRO 100 UNIT/ML 3ML VIAL SUBCUT ×4 (07:58→20:31)
[2023-09-19] MEDS: INSULIN GLARGINE 100 UNIT/ML 3ML PEN 10 UNIT SUBCUT (07:59)
[2023-09-19 08:28] LABS: Hemoglobin A1C% w Est Avg Glu 5.3 % (4.0-6.0)
[2023-09-19] MEDS: BUDESONIDE 0.5 MG/2 ML NEB INH ×2 (09:05→19:30)
[2023-09-19] MEDS: FLUTICASONE 120 SPRAY/16 GM SPRAY.SUSP NASAL (09:35)
[2023-09-19] MEDS: allopurinoL 100 MG TABLET 300 MG PO (09:35)
[2023-09-19] MEDS: lisinopriL 5 MG TABLET 2.5 MG PO (09:36)
[2023-09-19] MEDS: FUROSEMIDE 40 MG TABLET PO (09:36)
[2023-09-19] MEDS: FINASTERIDE 5 MG TABLET PO (09:36)
[2023-09-19] MEDS: TAMSULOSIN 0.4 MG CAPSULE PO (09:36)
[2023-09-19] MEDS: CLOPIDOGREL 75 MG TABLET PO (09:37)
[2023-09-19] MEDS: HEPARIN 5,000 UNIT/ML VIAL 5000 UNIT SUBCUT ×2 (09:37→20:24)
[2023-09-19] MEDS: METOPROLOL ER 50 MG TABLET PO (09:37)
[2023-09-19] MEDS: AZITHROMYCIN 500 MG in DEXTROSE 5% IN WATER 250 ML 250 MG IV (09:38)
[2023-09-19] MEDS: BISACODYL 10 MG SUPP PR (11:05)
[2023-09-19 11:10] LABS: Acinetobacter calcoa-baumannii Not Detected (Not Detect); Bacteroides fragilis Not Detected (Not Detect); Candida albicans Not Detected (Not Detect); Candida auris Not Detected (Not Detect); Candida glabrata Not Detected (Not Detect); Candida krusei Not Detected (Not Detect); Candida parapsilosis Not Detected (Not Detect); Candida tropicalis Not Detected (Not Detect); Cryptococcus neoformans/gatti Not Detected (Not Detect); Enterobacter cloacae complex Not Detected (Not Detect); Enterobacterales Not Detected (Not Detect); Enterococcus faecalis Not Detected (Not Detect); Enterococcus faecium Not Detected (Not Detect); Haemophilus influenzae Not Detected (Not Detect); Klebsiella aerogenes Not Detected (Not Detect); Listeria monocytogenes Not Detected (Not Detect); Neisseria meningitidis Not Detected (Not Detect); Proteus species Not Detected (Not Detect); Pseudomonas aeruginosa Not Detected (Not Detect); Salmonella species Not Detected (Not Detect); Serratia marcescens Not Detected (Not Detect); Staphylococcus epidermidis Detected (Not Detect); Staphylococcus lugdunensis Not Detected (Not Detect); Staphylococcus species Detected (Not Detect); Stenotrophomonas maltophilia Not Detected (Not Detect); Streptococcus agalactiae (Gr B Not Detected (Not Detect); Streptococcus pneumonia Not Detected (Not Detect); Streptococcus pyogenes (Gr A) Not Detected (Not Detect); Streptococcus species Not Detected (Not Detect); mecA/C Resistance Detected (Not Detect)
--- NOTE | 2023-09-19 11:31 | CM.DANOTE ---
Initial DCP Assessment Visit Note Reviewed EMR and team rounds for pt's medical status and initial anticipated home d/c needs. Met with pt at bedside to introduce self and role. Pt was found to be awake/oriented, but grimacing and expressed having painful abdominal cramping and that he could not have a BM. Dr. Davidson had just seen him and was working with the RN on an intervention. Pt resides in his own home with his sister, has been independent in his ADL's and functioning until this current decline in overall functioning. He has not needed a cg, but is now beginning to understand that he needs to be more active in getting his healthcare needs in line and start thinking about who will assist him with his worsening care needs. Payor: Medicare PCP: No current PCP Pt is a 72 year-old M who presented to the ED last evening via EMS with c/o shortness of breath, cough, fever, and congestion for the last 3-4 days. He states that he has been falling due to increased weakness, and just yesterday prior to his admission he fell 3-times. He has a PMH of COPD, diabetes, BPH, hypertension, and dyslipidemia, he uses an inhaler at baseline, which has been ineffective in alleviating his symptoms. ED chest x-ray showed a small left pleural effusion, pneumonia. CT kidney whowed an incidental finding of a mass in the bladder suspicious for malignancy. Pt was started on IV fluids and ABO's and admitted for further tx. He does not have a PCP, and he does know that he has this new bladder mass and will need a referral to OP Urology for further eval/workup. This CYBER OPERATOR did provide him with the information on how to obtain a new PCP here at [facility]. He declines the need for Home Health, SNF, or hiring additional care in the home. PT/OT evals/recommendations are pending, pt was in too much pain this morning in order to work with them. DCP will continue to monitor for final d/c recommendations and assist with coordination prior to discharge. Discharge Planning/Care Management CM Discharge Assessment Start: 09/19/23 11:05 Freq: Status: Active Protocol: Document 09/19/23 11:05 DPL (Rec: 09/19/23 11:31 DPL [id number]) Discharge Planning Assessment Assigned Airport Guide TEMO Machado Advance Directives? No History Provided By Patient,Medical Record Has Patient been admitted in last 30 No days? Prior Living Arrangements House Household Members family Type of transporation used prior to Drives own vehicle admit Independent with ADL's No: modified independent Is patient alert and oriented? Yes Comment Pt has been living independently and states has not needed a cg until now. He shares that she can cook for him and do shopping/chores if he needs help, but that this is the first time in his life that he has not been able to take care of himself. Caregiver for Another No Comment None DME Already Rented / Owned FWW / Walker Comment Pt declines the need for Home Health or hiring a cg for in- home support. Barriers to Discharge No Discharge Plan Home Transportation Arrangement Sister Referrals Initiated Other Additional Comment Provided information regarding how to obtain a new PCP at . Pt will need an OP Urology referral to evaluate his newly seen bladder mass, suspected for malignancy. Whiteboard Updated in Patient Room with Yes name and ext. # of Airport Guide Review Status In Process Please Provide Date Initial DC 09/19/23 Assessment Was Performed
--- NOTE | 2023-09-19 12:10 | PT-IP ANOTE ---
Pt having difficulty with abdominal pain and constipation. He is working with nursing to address these issues. He does not feel ready to participate in PT. Will check back in the afternoon.
--- NOTE | 2023-09-19 13:11 | OT.IP.EVAL ---
Current Diagnoses Sepsis, unspecified organism (09/18/23) Occupational Therapy Inpatient Evaluation/Re-Eval M1 PT/OT-IP Prior Functional Status Start: 09/19/23 14:30 Freq: NEEDED Status: Active Protocol: Document 09/19/23 16:39 CGR (Rec: 09/19/23 16:59 CGR [id number]) Medical Review Prior Functional Status Medical History Reviewed Yes Communication Pt is an effective verbal communicator. Mobility and Gait Pt was IND at baseline without AD but very limited in his distance. Activities of Daily Living and IADL's Pt states he was IND in all ADLs but that he got hlep with IADLs. He states that socks are difficult for him but he is able to perform. Social History Household Members family Living Arrangements Mobile home Number of Floors (Floors) One Floor Number of Stairs To Enter/Railing? 2 steps to enter from front or back. Front has B railings and back has L railing assending. Home Environment Standard Height Toilet,Walk in Shower,Built-In Shower Seat Home Equipment Front Wheel Walker,Straight Cane,Manual Wheelchair,Hand Held Shower,Grab Bars In Shower Employment Status Retired Additional Social History Comment Pt lives with his sister and brother in law. Pt has a flat bed. M2 OT-IP Current Condition Start: 09/19/23 16:38 Freq: Status: Active Protocol: Document 09/19/23 16:39 CGR (Rec: 09/19/23 16:59 CGR [id number]) Occupational Therapy Current Condition Current Condition Evaluation Date 09/19/23 Treatment Diagnosis community aquired PNA, sepsis, COPD Diagnosis Onset Date 09/18/23 M3 OT- IP Subjective and Pain Start: 09/19/23 16:38 Freq: Status: Active Protocol: Document 09/19/23 16:39 CGR (Rec: 09/19/23 16:59 CGR [id number]) OT- Subjective Occupational Therapy Visit Type Type Initial Evaluation Visit Start Time 12:58 Visit Stop Time 13:11 Notes Attempted to see pt earlier in day but pt having severe stomach pain. Pain is better after BM and pt is agreeable to limited OT services. OT Pain Assessment Pain When Pain Assessed At Rest Pain Present Pain Present Denied Pain M4 OT- IP ADL's Start: 09/19/23 16:38 Freq: Status: Active Protocol: Document 09/19/23 16:39 CGR (Rec: 09/19/23 16:59 CGR [id number]) OT [id number] General Evaluation Self-Feeding Ability Independent Comments OT Self-Feeding Comments Pt states that he doesn't want to eat much because his stomach started hurting after he ate breakfast. OT ADL-Grooming Comments OT Grooming Comments Pt declines, would like to perform when he finishes lunch OT ADL-Oral Care Comments Oral Care Comments Pt declines, would like to perform when he finishes lunch OT ADL-Dressing General Eval Lower Body Dressing Ability Standby Assistance Areas Needing Assistance Socks Comments OT Dressing Comments seated in chair, noted SOB after activity. OT ADL-Toileting General Evaluation Toileting Ability Total Assistance Comments OT Toileting Comments pt with robles OT ADL-Bathing Comments OT Bathing Comments not performed M5 OT- IP IADL's Start: 09/19/23 16:38 Freq: Status: Active Protocol: Document 09/19/23 16:39 CGR (Rec: 09/19/23 16:59 CGR [id number]) OT-Instrumental Activities of Daily Living Deficits IADL Deficits Identified No Deficits Home Safety Awareness Awareness of Need for Assistance at Home Good Awareness Ability to Problem Solve Emergency Able to Problem Solve Situations Medication Management Medication Management No Deficits Identified Money Management Money Management Caregiver Provides Assistance Meal Preparation Meal Preparation Caregiver Provides Assist Molding Line Operator Molding Line Operator Caregiver Provides Assist Driving Driving Comments 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 M6 OT- IP Functional Cognition Start: 09/19/23 16:38 Freq: Status: Active Protocol: Document 09/19/23 16:39 CGR (Rec: 09/19/23 16:59 CGR [id number]) Cognitive Factors Limiting Selfcare Function Cognitive Ability Level of Alertness Alert Patient Orientation Name,Age,Birthday,Month,Date, Year,Day of Week,Place, Situation Attention Span Ability Capable of Focused Attention, Capable of Sustained Attention Ability to Follow Commands Able to Follow One Step Commands with Increased Time, Able to Follow One Step Commands with Repetition OT- Vision and Hearing OT- Hearing Assessment OT- Hearing Assessment WFL OT- Vision Assessment Vision History Cataracts Visual Acuity Glasses For Reading Visual Attentiveness WFL Occular Pursuits WFL Visual Convergence WFL Vision Assessment Comments Pt states he had cateract sx and now needs readers. M7 OT- IP Mobility and Balance Start: 09/19/23 16:38 Freq: Status: Active Protocol: Document 09/19/23 16:39 CGR (Rec: 09/19/23 16:59 CGR [id number]) OT-Transfer Assessment Sit to and From Stand Sit to and from Stand Standby Assistance Transfers Transfer Ability Standby Assistance Technique Transfer Destination Chair Transfer Technique Stand Step Pivot Devices Transfer Assistive Devices Gait Belt,Front Wheeled Walker Comments Mobility Comments Pt sitting up in chair when OT entered. Pt stood without difficulty but declined futher actiivty out of the chair. OT- Gait Assessment Comments Gait Ability Comments not performed OT- Balance Assessment Sitting Balance and Reactions Static Sitting Balance Ability Good Dynamic Sitting Balance Ability Good M8 OT- IP Objective Assessments Start: 09/19/23 16:38 Freq: Status: Active Protocol: Document 09/19/23 16:39 CGR (Rec: 09/19/23 16:59 CGR [id number]) OT Gross Range of Motion Upper Extremity Range of Motion Assessment Within Functional Limits OT Strength Upper Extremity Strength Assessment Within Functional Limits Comments Strength Comments 4+/5 OT- Coordination Assessment Upper Extremity Finger to Nose Test Within Functional Limits Finger Tapping Test Within Functional Limits OT-Muscle Tone Assessment Muscle Tone WNL Yes OT Sensation Assessment Edema Edema Absent M9 OT- IP Assessment and Plan Start: 09/19/23 16:38 Freq: Status: Active Protocol: Document 09/19/23 16:39 CGR (Rec: 09/19/23 16:59 CGR [id number]) OT Summary Assessment and Plan Potential Rehabilitation Potential Good Analytic Complexity at Evaluation Moderate Summary OT Impairments Balance,Functional Mobility, Grooming,Dressing,Toileting, Bathing,Toilet Transfers, Shower Transfers,Activity Tolerance Progress Towards Goals Progressing Toward Goals Assessment Summary Pt presents as a moderate complexity evaluation s/p admit for community aquired PNA with a hx of COPD. Pt fatigues easily but was able to perform simple activity from the chair. Per pt, he only needs to walk a max of 20 feet into the kitchen. Pt will benefit from OT services to address deficits to ADLs and endurance. Will further educate on energy conservation . Pt is likely to progress to be safe for a discharge home but current recommendation is for SNF given endurance. Will continue to follow for updated recommendations. Goals Grooming Goal Independent Dressing Goal Independent Toileting Goal Independent Bathing Goal Independent Toilet Transfer Goal Independent Shower Transfer Goal Independent Days to Meet Goals 10 Frequency of Treatment Frequency Of Treatment Once a Day Treatment Plan OT Treatment Plan ADL Training,Functional Mobility,Patient/Family Education,Discharge Planning Other Treatment Recommendations and Next energy conservation, ADLs Treatment Focus standing, home safety. Discharge Recommendations OT Discharge Recommendations Home vs SNF Transportation Needs at Discharge Private Vehicle
[2023-09-19] MEDS: VANCOMYCIN 1,250 MG/250 ML PIGGYBACK 250 MG IV (13:44)
[2023-09-19] MEDS: MAG HYDROX/ALUM/SIMETH 30 ML UDC PO (14:30)
--- NOTE | 2023-09-19 14:43 | PC.NURSE ---
Day shift: Patient's chief complaint today was gas/feeling bloated. Had 2 small BMs after bisacodyl suppositories. Also given PRN Maalox per patient's request. Patient OOB with 1 PA + FWW. Tolerating carb diet. BGs remain elevated - MD Davidson ordered basal and sliding scale insulin this AM. Expiratory wheezing noted this AM with auscultation. SOB on exertion. Denies chest pain, though states mild discomfort with coughing. Will continue to monitor.
[2023-09-19] MEDS: ALBUTEROL/IPRATROPIUM 3 ML AMPUL INH ×2 (15:43→19:30)
--- NOTE | 2023-09-19 16:33 | PT.IIE ---
Current Diagnoses Sepsis, unspecified organism (09/18/23) Physical Therapy Inpatient Evaluation/Re-Eval M1 PT/OT-IP Prior Functional Status Start: 09/19/23 14:30 Freq: NEEDED Status: Active Protocol: Document 09/19/23 16:33 DLM (Rec: 09/19/23 16:51 [facility] [id number]) Medical Review Prior Functional Status Medical History Reviewed Yes Diet/Fluid Consistency Regular Communication WNL Mobility and Gait Independent without device, shortness of breath limits his distances of gait in community. He uses electric cart in grocery store. He can walk to mail box and back. Activities of Daily Living and IADL's Independent. He sits for showers. He drives Social History Household Members family Living Arrangements House Number of Floors (Floors) One Floor Number of Stairs To Enter/Railing? 2 steps with rail Home Environment Standard Height Toilet,Walk in Shower,Built-In Shower Seat Home Equipment Front Wheel Walker,Manual Wheelchair Employment Status Retired Additional Social History Comment his brother in law got him a walker and wheelchair to use at discharge M2 PT-IP Current Condition Start: 09/19/23 14:30 Freq: NEEDED Status: Active Protocol: Document 09/19/23 16:33 DLM (Rec: 09/19/23 16:51 [facility] [id number]) Physical Therapy Current Condition Current Condition Evaluation Date 09/19/23 Treatment Diagnosis Septic, PNA, UTI, falls, decreased mobility and gait Onset Date 09/18/23 M3 PT-IP Subjective Start: 09/19/23 14:30 Freq: NEEDED Status: Active Protocol: Document 09/19/23 16:33 DLM (Rec: 09/19/23 16:51 [facility] [id number]) Subjective Physical Therapy Visit Type Type Initial Evaluation Visit Start Time 13:45 Visit Stop Time 16:33 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 He continues to have some abdominal pain and gas this afternoon. He reports his shortness of breath has improved during this admission . Patient Goals Discharge home, get his strength back so he can take care of himself Therapy Pain Assessment Pain When Pain Assessed During Mobility Pain Present Pain Present Pain Reported Location Bilateral Leg Intensity 3 Scale Used Numeric (0 - 10) Description Aching,With Movement Pain Management Techniques Re-positioning M4 PT-IP Mobility and Gait Start: 09/19/23 14:30 Freq: NEEDED Status: Active Protocol: Document 09/19/23 16:33 DL (Rec: 09/19/23 16:51 [facility] [id number]) PT-Bed Mobility Assessment Rolling Type of Rolling Bilateral Level of Assist Independent Supine to Sit Supine to Sit Independent Sit to Supine Sit to Supine Independent Scooting Scooting to Edge of Bed Independent PT-Transfer Assessment Sit to and From Stand Sit to and from Stand Contact Guard Assistance,Use of Upper Extremities Equipment Transfer Assistive Device Gait Belt,Front Wheeled Walker Transfers Transfer Destination Bed,Chair Transfer Technique Stand Step Pivot Transfer Ability Level of Assist Contact Guard Assistance,Use of Upper Extremities Comments Mobility Comments He gets short of breath getting in/out of bed and with sit-stand so need short rest breaks to manage this. Educated pt to use UE support during sit to and from standing for increased safety. Gait Assessment Gait Gait Assistance Required: Standby Assistance,Contact Guard Assist Distance (Feet) 110 Assistive Devices Assistive Device Gait Belt,Front Wheeled Walker Factors Limiting Gait Function Factors Limiting Gait Function Decreased Activity Tolerance, Pain,Poor Balance,Respiratory Distress Comments Gait Comments Encouraged pt not to talk while ambulating to better manage his breathing. Educated pt in pacing and energy management during mobility and gait. Progressed his gait from around his room to out in the alexis. PT-Balance Assessment Sitting Balance and Reactions Static Sitting Balance Ability Normal Dynamic Sitting Balance Ability Normal Standing Balance and Reactions Static Standing Balance Ability Good Dynamic Standing Balance Ability Fair Device Used FWW M5 PT-IP Objective Assessments Start: 09/19/23 14:30 Freq: NEEDED Status: Active Protocol: Document 09/19/23 16:33 [facility] (Rec: 09/19/23 16:51 [facility] [id number]) Orientation Orientation/Cognition Level of Alertness Alert Orientation Name,Age,Birthday,Month,Date, Year,Day of Week,Place, Situation Language Function Ability No Deficits Noted Safety Awareness Understands Safety Issues Memory Description No Deficits Noted Gross Range of Motion Upper Extremity ROM Assessment Within Functional Limits Impairments shoulder flexion to 110 degrees bilaterally, no pain end range Lower Extremity ROM Assessment Within Functional Limits Strength Upper Extremity Strength Assessment Within Functional Limits Lower Extremity Strength Assessment Left Impaired Hip flex 4+/5 Knee extension 4-/5 with pain in knee Ankle DF 5/5 Coordination Assessment Gross Coordination Gross Coordination WNL Sensation Assessment Sensation Gross Sensation Right UE Impaired,Left UE Impaired,Right LE Impaired, Left LE Impaired Sensation Description Paresthesia,Numbness,Pain Comments Sensation Comments neuropathy in hands and feet, pt reports he can not feel his feet and he has pain from ankles to knees, he can not feel hot/cold on his feet, numbness in hand especially finger tips, pt reports he drops things easily Muscle Tone Muscle Tone WNL Yes M6 PT-IP Treatment Start: 09/19/23 14:30 Freq: NEEDED Status: Active Protocol: Document 09/19/23 16:33 DLM (Rec: 09/19/23 16:51 DL [id number]) Physical Therapy Treatment Education Education Provided Safety Other Treatments Other Treatment Performed education to decrease fall risks, pacing and energy conservation education M7 PT-IP Assessment and Plan Start: 09/19/23 14:30 Freq: NEEDED Status: Active Protocol: Document 09/19/23 16:33 DLM (Rec: 09/19/23 16:51 DL [id number]) PT Summary Assessment and Plan Potential Rehabilitation Potential Excellent Status of Condition at Evaluation Evolving Summary Impairments Pain,Strength,Balance, Sensation,Transfers,Gait, Activity Tolerance Assessment Summary Sánchez is alert and resting in bed. He reports he is feeling better. He demonstrates improving functional strength and activity tolerance. He continues to need the FWW for gait at this time. He develops mild shortness of breath with functional mobility that resolved with sitting rest breaks. Gradually progressed activity this visit to manage his respiratory symptoms. Anticipate he will be safe to discharge home using the FWW when he is medically cleared if he continues to progress in therapy. Recommend home health physical therapy to continue to progress his gait and strengthening. He does not use an assistive device at baseline for gait. Goals Transfer Goal Independent,Front Wheeled Walker Gait Goal Independent,Front Wheel Walker Gait Distance 200 feet Other Goals up/down 2 steps with rail and SBA Days to Meet Goals 3 Frequency of Treatment Frequency Of Treatment Once a Day Treatment Plan Physical Therapy Treatment Plan Transfer Training,Gait Training,Therapeutic Exercise, Balance Retraining,Discharge Planning,Neuromuscular Re-ed Precautions Other Precautions falls before admit, monitor respiratory status Recommendations To Nursing Amount of Assist Needed 1 Person Assist Discharge Recommendations PT Discharge Recommendations Home with Assistance,Home Health Other Discharge Recommendations has assist from Sister and MIRELLA that he lives with Transportation Needs at Discharge Private Vehicle [id number]
[2023-09-19] MEDS: ATORVASTATIN 20 MG TABLET 40 MG PO (20:24)
[2023-09-19] MEDS: SERTRALINE 50 MG TABLET 25 MG PO (20:24)
[2023-09-19] MEDS: SIMETHICONE 80 MG TABLET PO (22:29)
[2023-09-19] MEDS: HYDROCODONE/ACET 5/325 TABLET 2 TAB PO (22:29)
[2023-09-20] VITALS (10 sets, daily range): BP systolic 102–166; BP diastolic 60–85; PULSE 56–89; RESP 16–19; TEMP 36.2–36.8; O2SAT 95–98
[2023-09-20] MEDS: PANTOPRAZOLE DR 20 MG TABLET PO (05:18)
[2023-09-20] MEDS: cefTRIAXone 1,000 MG in SODIUM CHLORIDE 0.9% 100 ML 200 MG IV (05:18)
[2023-09-20] MEDS: ACETAMINOPHEN 325 MG TABLET 650 MG PO (05:20)
[2023-09-20] MEDS: MAG HYDROX/ALUM/SIMETH 30 ML UDC PO (05:20)
[2023-09-20 05:29] LABS: Add Manual Diff / Slide Review NO; Basophils Absolute Auto 0 /uL (0-100); Basophils Percent Auto 0.3 % (0-2); Eosinophils Absolute Auto 0 /uL (0-450); Eosinophils Percent Auto 0.1 % (2-4); Hemoglobin 9.8 g/dL (13.5-17.5); Lymphocytes Absolute Auto 1200 /uL (1100-4500); Lymphocytes Percent Auto 12.7 % (25-40); Mean Corpuscular HGB Conc 31.5 % (30-36); Mean Corpuscular Hemoglobin 23.9 PG (26-34); Mean Corpuscular Volume 75.7 fL (80-100); Monocytes Absolute Auto 1000 /uL (0-900); Monocytes Percent Auto 10.6 % (3-14); Neutrophils Absolute Auto 7500 /uL (1500-7000); Neutrophils Percent Auto 76.3 % (50-75); Platelet Count 253 X10^3/uL (150-400); Red Blood Cell Count 4.09 X10^6/uL (4.5-5.9); Red Cell Distribution Width 19.7 % (11.6-14.8); White Blood Cell Count 9.8 X10^3/uL (4.5-11.0)
[2023-09-20 05:53] LABS: BUN Creatinine Ratio 34.5 (6-22); Blood Urea Nitrogen 40 mg/dL (9-20); Calcium 8.9 mg/dL (8.4-10.2); Carbon Dioxide 21 mmol/L (22-32); Chloride 109 mmol/L (98-107); Estimated Glomerular Filt Rate > 60 mL/min (>60); Glucose 186 mg/dL (80-110); HEMOLYSIS 19 (0-50); Potassium 3.9 mmol/L (3.4-5.1); Sodium 136 mmol/L (137-145)
[2023-09-20] MEDS: VANCOMYCIN 1,250 MG/250 ML PIGGYBACK 250 MG IV (06:19)
--- NOTE | 2023-09-20 07:23 | P.PN_ITS ---
Subjective Subjective Interval history: Feeling better. No fevers, less dyspnea. Walking better, Has positive blood cultures. Klebsiella in urine. Exam Vital Signs (past 8 hours): - 09/19/23 23:35 09/20/23 03:34 Temperature 97.5 F L 98.3 F Pulse Rate 68 89 Respiratory Rate 19 19 Blood Pressure 131/58 L 145/69 H Pulse Oximetry 96 96 Oxygen Flow Rate 0 0 Fraction of Inspired Oxygen 21 Oxygen Delivery Method Room Air Oxygen Flow Rate 0 Narrative Exam Narrative: NAD, alert and oriented. Fluent speech. Lungs are clear, normal rate and effort. Heart is regular, no murmur gallop or rub. Abdomen is soft, non distended. Extremities are free of edema. Objective Labs 09/20/23 04:57 09/20/23 04:57 Labs: Laboratory Results - last 24 hr 09/18/23 09/19/23 09/20/23 13:10 05:10 04:57 WBC 9.8 RBC 4.09 L Hgb 9.8 L Hct 31.0 L MCV 75.7 L MCH 23.9 L MCHC 31.5 RDW 19.7 H Plt Count 253 Neut % (Auto) 76.3 H Lymph % (Auto) 12.7 L Williamson % (Auto) 10.6 Eos % (Auto) 0.1 L Baso % (Auto) 0.3 Neut # (Auto) 7500 H Lymph # (Auto) 1200 Williamson # (Auto) 1000 H Eos # (Auto) 0 Baso # (Auto) 0 Sodium 136 L Potassium 3.9 Chloride 109 H Carbon Dioxide 21 L BUN 40 H Creatinine 1.16 Estimated GFR > 60 BUN/Creatinine Ratio 34.5 H Glucose 186 H Hemoglobin A1c 5.3 Calcium 8.9 A.calcoaceticus-baumannii cmplx PCR Not detected Bacteroides fragilis Not detected Julianna albicans (PCR) Not detected Julianna auris (PCR) Not detected C. glabrata (PCR) Not detected C. krusei (PCR) Not detected C. parapsilosis (PCR) Not detected C. tropicalis (PCR) Not detected C. neoform/gattii (PCR) Not detected Enterobacterales (PCR) Not detected E. cloacae complex PCR Not detected Enterococc faecalis PCR Not detected Enterococc faecium PCR Not detected E. coli (PCR) Not detected H. influenzae (PCR) Not detected Klebsiella aerogenes (PCR) Not detected Klebsiella oxytoca PCR Not detected Klebsiella pneumoniae Not detected List. monocytogenes PCR Not detected N. meningitidis (PCR) Not detected Proteus species (PCR) Not detected Salmonella spp. (PCR) Not detected Serratia marcescens PCR Not detected Staphylococcus sp PCR Detected Staph aureus (PCR) Not detected mecA/C & MREJ Resist Gene Not applicable mecA/C-Methicil Resis Gene Detected mcr-1 Colistin Res Gene PCR Not applicable Staph epidermidis (PCR) Detected Staph lugdunensis PCR Not detected S. maltophilia (PCR) Not detected Streptococcus sp PCR Not detected Group A Strep (PCR) Not detected Strep agalactiae (PCR) Not detected Strep pneumoniae (PCR) Not detected P. aeruginosa (PCR) Not detected Kalia/B-Vanco Res Genes Not applicable blaIMP Car res Gene PCR Not applicable KPC-Carbap Res Gene PCR Not applicable blaNDM Car Res Gene PCR Not applicable OXA-48 Carbapenem Resis Gene (PCR) Not applicable blaVIM Car Res Gene PCR Not applicable CTX-M Gene Resistance (PCR) Not applicable [facility] Social History household members: family Smoking Status: Former smoker alcohol intake: current Assessment & Plan Assessment & Plan narrative: 1. Community-acquired pneumonia, present on admission and improving. 2. Sepsis with tachypnea, tachycardia, and lactic acidosis with a source of infection being pneumonia. Present on admission and improved. 3. Acute kidney injury, present on admission and improved. 4. Lactic acidosis, present on admission and resolved. 5. COPD, present on admission and improved. 6. DM 2, present on admission and active. 7. BPH, present on admission and active. 8. HLD, present on admission and active. 9. Constipation and abdominal cramping, new and active. 10. Depression, present on admission and active. 11. Bladder mass was found incidentally on CT scan, present on admission and active. 12. UTI (Klebsiella), present on admmission and improving. 13. Bacteremia, present on admission and improving. Plan: -continue empiric antibiotics and IV fluids . Blood cultures (GPC) pending. -We will monitor renal function. -continue corticosteroids, DuoNebs as needed. -started an antidepressant 09/18, he is agreeable to this. -physical therapy evaluation and discharge planning. -continue bowel program -Zoloft 25 HS , 09/18. . -resumed all usual medications 09/18. OOB, await final ID of Gram-positive cocci for discharging anti microbial planning. DISPO: home in 1-2 days Quality VTE Deep Vein Thrombosis/Pulmonary Embolism Present on Admission: No
[2023-09-20] MEDS: BUDESONIDE 0.5 MG/2 ML NEB INH ×2 (07:32→19:36)
[2023-09-20] MEDS: ALBUTEROL/IPRATROPIUM 3 ML AMPUL INH ×3 (07:32→22:17)
[2023-09-20] MEDS: INSULIN LISPRO 100 UNIT/ML 3ML VIAL SUBCUT ×4 (08:19→20:50)
[2023-09-20] MEDS: FLUTICASONE 120 SPRAY/16 GM SPRAY.SUSP NASAL (08:20)
[2023-09-20] MEDS: INSULIN GLARGINE 100 UNIT/ML 3ML PEN 10 UNIT SUBCUT (08:20)
[2023-09-20] MEDS: CLOPIDOGREL 75 MG TABLET PO (08:33)
[2023-09-20] MEDS: METOPROLOL ER 50 MG TABLET PO (08:34)
[2023-09-20] MEDS: allopurinoL 100 MG TABLET 300 MG PO (08:34)
[2023-09-20] MEDS: FUROSEMIDE 40 MG TABLET PO (08:34)
[2023-09-20] MEDS: predniSONE 20 MG TABLET 50 MG PO (08:34)
[2023-09-20] MEDS: HEPARIN 5,000 UNIT/ML VIAL 5000 UNIT SUBCUT ×2 (08:35→20:52)
[2023-09-20] MEDS: FINASTERIDE 5 MG TABLET PO (08:35)
[2023-09-20] MEDS: TAMSULOSIN 0.4 MG CAPSULE PO (08:35)
[2023-09-20] MEDS: INFLUENZA HD VACCINE 0.7 ML SYRINGE IM (09:31)
[2023-09-20] MEDS: AZITHROMYCIN 500 MG in DEXTROSE 5% IN WATER 250 ML 250 MG IV (09:32)
--- NOTE | 2023-09-20 10:03 | CM.DPC ---
DCP Cont. Reviewed EMR and team rounds for pt's status updates. Pt is slowly improving, will need 1-2 more days for medical stability prior to d/c, per Hospitalist. Will contue to monitor for final d/c recommendations.
--- NOTE | 2023-09-20 10:09 | OT.IPNOTE ---
Attempted to see pt for OT services. Pt states he is fatigued today and his stomach hurts again. He requests to hold on therapy at this time. Pt was provided with a handout for energy conservation and requested that pt read through it before the next session. Will continue to follow.
--- NOTE | 2023-09-20 10:44 | PT-IP ANOTE ---
Pt refused to work with PT today. He reports having stomach cramps and has no energy today due to not sleeping, he would like to rest. PT will check back with pt tomorrow.
[2023-09-20] MEDS: ATORVASTATIN 20 MG TABLET 40 MG PO (20:52)
[2023-09-20] MEDS: SERTRALINE 50 MG TABLET 25 MG PO (20:52)
[2023-09-21] VITALS (8 sets, daily range): BP systolic 108–156; BP diastolic 51–81; PULSE 69–103; RESP 18–20; TEMP 36–36.6; O2SAT 94–98
[2023-09-21] MEDS: VANCOMYCIN 1,250 MG/250 ML PIGGYBACK 250 MG IV ×2 (00:15→19:21)
[2023-09-21] MEDS: cefTRIAXone 1,000 MG in SODIUM CHLORIDE 0.9% 100 ML 200 MG IV (05:18)
[2023-09-21] MEDS: PANTOPRAZOLE DR 20 MG TABLET PO (06:22)
[2023-09-21 06:52] LABS: Add Manual Diff / Slide Review NO; Basophils Absolute Auto 0 /uL (0-100); Basophils Percent Auto 0.1 % (0-2); Eosinophils Absolute Auto 0 /uL (0-450); Hematocrit 30.5 % (41-53); Hemoglobin 9.5 g/dL (13.5-17.5); Lymphocytes Absolute Auto 1300 /uL (1100-4500); Lymphocytes Percent Auto 14.9 % (25-40); Mean Corpuscular HGB Conc 31.2 % (30-36); Mean Corpuscular Hemoglobin 23.7 PG (26-34); Mean Corpuscular Volume 76.1 fL (80-100); Monocytes Absolute Auto 900 /uL (0-900); Monocytes Percent Auto 10.8 % (3-14); Neutrophils Absolute Auto 6500 /uL (1500-7000); Neutrophils Percent Auto 74.2 % (50-75); Platelet Count 284 X10^3/uL (150-400); Red Blood Cell Count 4.01 X10^6/uL (4.5-5.9); Red Cell Distribution Width 19.9 % (11.6-14.8); White Blood Cell Count 8.7 X10^3/uL (4.5-11.0)
[2023-09-21 07:04] LABS: BUN Creatinine Ratio 24.5 (6-22); Blood Urea Nitrogen 27 mg/dL (9-20); Calcium 8.8 mg/dL (8.4-10.2); Carbon Dioxide 25 mmol/L (22-32); Chloride 109 mmol/L (98-107); Estimated Glomerular Filt Rate > 60 mL/min (>60); Glucose 176 mg/dL (80-110); HEMOLYSIS < 15 (0-50); Potassium 3.4 mmol/L (3.4-5.1); Sodium 138 mmol/L (137-145)
--- NOTE | 2023-09-21 07:40 | P.PN_ITS ---
Subjective Subjective Interval history: His generally greatly improved from 2 days ago. His energy is better. He did have some dyspnea and felt weak after taking a shower today. He also had an orthostatic drop in blood pressure. He denies any fevers. He would abdominal pain originally but this is resolved. He denies any diarrhea, or chest pain. He is 2 positive blood cultures of unclear significance at from the time of admission. They are when our part in 1 is Staph epidermis in the other is another coag-negative staph species. Repeat blood cultures were drawn today, he has been on ceftriaxone and azithromycin as well as vancomycin. We will stop the azithro today. He does have a Snell catheter in place which will be removed. He is Klebsiella in his urine. Exam Vital Signs (past 8 hours): - 09/21/23 00:00 09/21/23 04:00 Temperature 96.8 F L 97.3 F L Pulse Rate 103 H 69 Respiratory Rate 20 18 Blood Pressure 143/80 H 140/72 Pulse Oximetry 98 94 Oxygen Flow Rate 0 0 Fraction of Inspired Oxygen 21 SaO2/FiO2 Ratio 466 Oxygen Delivery Method Room Air Oxygen Flow Rate 0 Narrative Exam Narrative: NAD, alert and oriented. Fluent speech. Lungs are clear, normal rate and effort. Heart is regular, no murmur gallop or rub. Abdomen is soft, non distended. Extremities are free of edema. Snell in place. Objective Labs 09/21/23 05:55 09/21/23 05:55 Labs: Laboratory Results - last 24 hr 09/18/23 09/21/23 13:10 05:55 WBC 8.7 RBC 4.01 L Hgb 9.5 L Hct 30.5 L MCV 76.1 L MCH 23.7 L MCHC 31.2 RDW 19.9 H Plt Count 284 Neut % (Auto) 74.2 Lymph % (Auto) 14.9 L Haskell % (Auto) 10.8 Eos % (Auto) 0.0 L Baso % (Auto) 0.1 Neut # (Auto) 6500 Lymph # (Auto) 1300 Haskell # (Auto) 900 Eos # (Auto) 0 Baso # (Auto) 0 Sodium 138 Potassium 3.4 Chloride 109 H Carbon Dioxide 25 BUN 27 H Creatinine 1.10 Estimated GFR > 60 BUN/Creatinine Ratio 24.5 H Glucose 176 H Calcium 8.8 A.calcoaceticus-baumannii cmplx PCR Not detected Bacteroides fragilis Not detected Julianna albicans (PCR) Not detected Julianna auris (PCR) Not detected C. glabrata (PCR) Not detected C. krusei (PCR) Not detected C. parapsilosis (PCR) Not detected C. tropicalis (PCR) Not detected C. neoform/gattii (PCR) Not detected Enterobacterales (PCR) Not detected E. cloacae complex PCR Not detected Enterococc faecalis PCR Not detected Enterococc faecium PCR Not detected E. coli (PCR) Not detected H. influenzae (PCR) Not detected Klebsiella aerogenes (PCR) Not detected Klebsiella oxytoca PCR Not detected Klebsiella pneumoniae Not detected List. monocytogenes PCR Not detected N. meningitidis (PCR) Not detected Proteus species (PCR) Not detected Salmonella spp. (PCR) Not detected Serratia marcescens PCR Not detected Staphylococcus sp PCR Detected Staph aureus (PCR) Not detected mecA/C & MREJ Resist Gene Not applicable mecA/C-Methicil Resis Gene Detected mcr-1 Colistin Res Gene PCR Not applicable Staph epidermidis (PCR) Detected Staph lugdunensis PCR Not detected S. maltophilia (PCR) Not detected Streptococcus sp PCR Not detected Group A Strep (PCR) Not detected Strep agalactiae (PCR) Not detected Strep pneumoniae (PCR) Not detected P. aeruginosa (PCR) Not detected Kalia/B-Vanco Res Genes Not applicable blaIMP Car res Gene PCR Not applicable KPC-Carbap Res Gene PCR Not applicable blaNDM Car Res Gene PCR Not applicable OXA-48 Carbapenem Resis Gene (PCR) Not applicable blaVIM Car Res Gene PCR Not applicable CTX-M Gene Resistance (PCR) Not applicable [facility] Social History household members: family Smoking Status: Former smoker alcohol intake: current Assessment & Plan Assessment & Plan narrative: 1. Community-acquired pneumonia, present on admission and improving. 2. Sepsis with tachypnea, tachycardia, and lactic acidosis with a source of infection being pneumonia. Present on admission and improved. 3. Acute kidney injury, present on admission and improved. 4. Lactic acidosis, present on admission and resolved. 5. COPD, present on admission and improved. 6. DM 2, present on admission and active. 7. BPH, present on admission and active. 8. HLD, present on admission and active. 9. Constipation and abdominal cramping, new and active. 10. Depression, present on admission and active. 11. Bladder mass was found incidentally on CT scan, present on admission and active. 12. UTI (Klebsiella), present on admmission and improving. 13. Bacteremia, present on admission and improving. Plan: -continue empiric antibiotics and IV fluids . Blood cultures are: Staph epi and Staph warneri (1 hour apart on 09/17). Stop azithro after 3 days, continue ceftriaxone and vancomycin. We will repeat the blood cultures. May be able to stop the vancomycin in the next 1 day or so if this really appears to be 2 different contaminants. The ceftriaxone is covering the urine Klebsiella. -We will monitor renal function. Remove Snell catheter. -continue corticosteroids, DuoNebs as needed. -started an antidepressant 09/18, he was agreeable to this. -Zoloft 25 HS 09/18. -physical therapy evaluation and discharge planning. -continue bowel program , improved. -remove Snell. -resumed all usual medications 09/18. OOB, DISPO: 1-2 days home vs ? NEEDS URO FU FOR BLADDER MASS ON CT. Quality VTE Deep Vein Thrombosis/Pulmonary Embolism Present on Admission: No
[2023-09-21] MEDS: CLOPIDOGREL 75 MG TABLET PO (08:18)
[2023-09-21] MEDS: predniSONE 20 MG TABLET 40 MG PO (08:18)
[2023-09-21] MEDS: FINASTERIDE 5 MG TABLET PO (08:19)
[2023-09-21] MEDS: TAMSULOSIN 0.4 MG CAPSULE PO (08:19)
[2023-09-21] MEDS: lisinopriL 5 MG TABLET 2.5 MG PO (08:19)
[2023-09-21] MEDS: FUROSEMIDE 40 MG TABLET PO (08:19)
[2023-09-21] MEDS: allopurinoL 100 MG TABLET 300 MG PO (08:19)
[2023-09-21] MEDS: HEPARIN 5,000 UNIT/ML VIAL 5000 UNIT SUBCUT ×2 (08:20→20:58)
[2023-09-21] MEDS: METOPROLOL ER 50 MG TABLET PO (08:20)
[2023-09-21] MEDS: FLUTICASONE 120 SPRAY/16 GM SPRAY.SUSP NASAL (08:21)
[2023-09-21] MEDS: INSULIN GLARGINE 100 UNIT/ML 3ML PEN 10 UNIT SUBCUT (08:22)
[2023-09-21] MEDS: INSULIN LISPRO 100 UNIT/ML 3ML VIAL SUBCUT ×4 (08:22→20:57)
[2023-09-21] MEDS: ALBUTEROL/IPRATROPIUM 3 ML AMPUL INH ×5 (08:24→23:06)
[2023-09-21] MEDS: ALBUTEROL 2.5 MG/3 ML NEB (ADULT) INH (08:24)
[2023-09-21] MEDS: BUDESONIDE 0.5 MG/2 ML NEB INH ×2 (08:24→19:12)
[2023-09-21] MEDS: MAG HYDROX/ALUM/SIMETH 30 ML UDC PO (08:45)
--- NOTE | 2023-09-21 09:32 | OT.IP.TRT ---
Current Diagnoses Sepsis, unspecified organism (09/18/23) Occupational Therapy Treatment Note M2 OT-IP Current Condition Start: 09/19/23 16:38 Freq: Status: Active Protocol: Document 09/19/23 16:39 CGR (Rec: 09/19/23 16:59 CGR [id number]) Occupational Therapy Current Condition Current Condition Evaluation Date 09/19/23 Treatment Diagnosis community aquired PNA, sepsis, COPD Diagnosis Onset Date 09/18/23 M3 OT- IP Subjective and Pain Start: 09/19/23 16:38 Freq: Status: Active Protocol: Document 09/21/23 09:33 [facility] (Rec: 09/21/23 09:39 [facility] [id number]) OT- Subjective Occupational Therapy Visit Type Type Treatment Note Visit Start Time 09:05 Visit Stop Time 09:32 Occupational Therapy Visit Comments Patient Comments Pt agreed to shower. Patient/Caregiver Goals TO go home. OT Pain Assessment Pain When Pain Assessed At Rest Pain Present Pain Present Denied Pain M4 OT- IP ADL's Start: 09/19/23 16:38 Freq: Status: Active Protocol: Document 09/21/23 09:33 [facility] (Rec: 09/21/23 09:39 [facility] [id number]) OT ADL-Dressing General Eval Lower Body Dressing Ability Maximum Assistance Comments OT Dressing Comments Pt too tired after showering and needing assist for his socks and brief. 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 OT ADL-Toileting General Evaluation Toileting Ability Total Assistance Comments OT Toileting Comments pt with margaret M5 OT- IP IADL's Start: 09/19/23 16:38 Freq: Status: Active Protocol: Document 09/19/23 16:39 CGR (Rec: 09/19/23 16:59 CGR [id number]) OT-Instrumental Activities of Daily Living Deficits IADL Deficits Identified No Deficits Home Safety Awareness Awareness of Need for Assistance at Home Good Awareness Ability to Problem Solve Emergency Able to Problem Solve Situations Medication Management Medication Management No Deficits Identified Money Management Money Management Caregiver Provides Assistance Meal Preparation Meal Preparation Caregiver Provides Assist Auto Care Center Manager Auto Care Center Manager Caregiver Provides Assist Driving Driving Comments 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 M7 OT- IP Mobility and Balance Start: 09/19/23 16:38 Freq: Status: Active Protocol: Document 09/21/23 09:33 [facility] (Rec: 09/21/23 09:39 [facility] [id number]) OT- Bed Mobility Assessment Supine to Sit Supine to Sit Assist Standby Assistance Sit to Supine Sit to Supine Assist Minimal Assistance OT-Transfer Assessment Sit to and From Stand Sit to and from Stand Standby Assistance Transfers Transfer Ability Standby Assistance,Contact Guard Assistance Technique Transfer Destination Bed,Shower Stall Transfer Technique Stand Step Pivot Devices Transfer Assistive Devices Gait Belt,Front Wheeled Walker Comments Mobility Comments SBA to stand and CGA to step over the threshold of the shower with the FWW. O2 on RA after the shower 88% and then after a few deep breaths increased to 98% hr 112. OT- Balance Assessment Sitting Balance and Reactions Static Sitting Balance Ability Good Dynamic Sitting Balance Ability Good Standing Balance and Reactions Static Standing Balance Ability Fair Dynamic Standing Balance Ability Fair M8 OT- IP Objective Assessments Start: 09/19/23 16:38 Freq: Status: Active Protocol: Document 09/19/23 16:39 [facility]GR (Rec: 09/19/23 16:59 [facility] [id number]) OT Gross Range of Motion Upper Extremity Range of Motion Assessment Within Functional Limits OT Strength Upper Extremity Strength Assessment Within Functional Limits Comments Strength Comments 4+/5 OT- Coordination Assessment Upper Extremity Finger to Nose Test Within Functional Limits Finger Tapping Test Within Functional Limits OT-Muscle Tone Assessment Muscle Tone WNL Yes OT Sensation Assessment Edema Edema Absent M9 OT- IP Assessment and Plan Start: 09/19/23 16:38 Freq: Status: Active Protocol: Document 09/21/23 09:33 [facility] (Rec: 09/21/23 09:39 [facility] [id number]) OT Summary Assessment and Plan Potential Rehabilitation Potential Good Analytic Complexity at Evaluation Moderate Summary OT Impairments Balance,Functional Mobility, Grooming,Dressing,Toileting, Bathing,Toilet Transfers, Shower Transfers,Activity Tolerance Progress Towards Goals Progressing Toward Goals Assessment Summary Pt doing much better and able to tolerate a shower with assist. Pt looking to go home with home health and would also benefit from a shower aid . 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
--- NOTE | 2023-09-21 10:45 | PT.IPTN ---
Current Diagnoses Sepsis, unspecified organism (09/18/23) Physical Therapy Treatment Note M2 PT-IP Current Condition Start: 09/19/23 14:30 Freq: NEEDED Status: Active Protocol: Document 09/19/23 16:33 DLM (Rec: 09/19/23 16:51 DLM [id number]) Physical Therapy Current Condition Current Condition Evaluation Date 09/19/23 Treatment Diagnosis Septic, PNA, UTI, falls, decreased mobility and gait Onset Date 09/18/23 M3 PT-IP Subjective Start: 09/19/23 14:30 Freq: NEEDED Status: Active Protocol: Document 09/21/23 11:15 TS (Rec: 09/21/23 11:25 TS [id number]) Subjective Physical Therapy Visit Type Type Treatment Note Visit Start Time 10:45 Visit Stop Time 11:10 Number of HEALTH AND FITNESS PROFESSOR Visits 1 Physical Therapy Visit Comments Patient Comments Pt found resting in bed, reports stomach pain is improving, he's agreeable to PT. M4 PT-IP Mobility and Gait Start: 09/19/23 14:30 Freq: NEEDED Status: Active Protocol: Document 09/21/23 11:15 TS (Rec: 09/21/23 11:25 TS [id number]) PT-Bed Mobility Assessment Supine to Sit Supine to Sit Independent Scooting Scooting to Edge of Bed Independent PT-Transfer Assessment Sit to and From Stand Sit to and from Stand Standby Assistance Equipment Transfer Assistive Device Gait Belt,Front Wheeled Walker Comments Mobility Comments Supine to sit Ind with HOB elevated and BUE support. STS from bed SBA with use of FWW. Pt ambulated ~20' SBA with FWW , pt reports dizziness after ~ 10', pt requested to sit in chair. BP in sitting 127/64, pt reports SOB, Spo2 97% on RA . STS from chair SBA with FWW, BP in standing 79/40, pt reports increased dizziness. Pt was left in chair, all needs met, sister in room, chair alarm on and RN notified . Gait Assessment Gait Gait Assistance Required: Standby Assistance Distance (Feet) 20 Assistive Devices Assistive Device Gait Belt,Front Wheeled Walker Factors Limiting Gait Function Factors Limiting Gait Function Decreased Activity Tolerance, Pain,Poor Balance,Respiratory Distress Comments Gait Comments See mobility comments Stair Climbing Assessment Comments Stair Climbing Comments Not appropriate at this time PT-Balance Assessment Sitting Balance and Reactions Static Sitting Balance Ability Normal Dynamic Sitting Balance Ability Good Standing Balance and Reactions Static Standing Balance Ability Good Dynamic Standing Balance Ability Fair Device Used FWW M5 PT-IP Objective Assessments Start: 09/19/23 14:30 Freq: NEEDED Status: Active Protocol: Document 09/19/23 16:33 DLM (Rec: 09/19/23 16:51 DLM [id number]) Orientation Orientation/Cognition Level of Alertness Alert Orientation Name,Age,Birthday,Month,Date, Year,Day of Week,Place, Situation Language Function Ability No Deficits Noted Safety Awareness Understands Safety Issues Memory Description No Deficits Noted Gross Range of Motion Upper Extremity ROM Assessment Within Functional Limits Impairments shoulder flexion to 110 degrees bilaterally, no pain end range Lower Extremity ROM Assessment Within Functional Limits Strength Upper Extremity Strength Assessment Within Functional Limits Lower Extremity Strength Assessment Left Impaired Hip flex 4+/5 Knee extension 4-/5 with pain in knee Ankle DF 5/5 Coordination Assessment Gross Coordination Gross Coordination WNL Sensation Assessment Sensation Gross Sensation Right UE Impaired,Left UE Impaired,Right LE Impaired, Left LE Impaired Sensation Description Paresthesia,Numbness,Pain Comments Sensation Comments neuropathy in hands and feet, pt reports he can not feel his feet and he has pain from ankles to knees, he can not feel hot/cold on his feet, numbness in hand especially finger tips, pt reports he drops things easily Muscle Tone Muscle Tone WNL Yes M6 PT-IP Treatment Start: 09/19/23 14:30 Freq: NEEDED Status: Active Protocol: Document 09/21/23 11:15 TS (Rec: 09/21/23 11:25 [id number]) Physical Therapy Treatment Education Education Provided Safety M7 PT-IP Assessment and Plan Start: 09/19/23 14:30 Freq: NEEDED Status: Active Protocol: Document 09/21/23 11:15 TS (Rec: 09/21/23 11:25 TS [id number]) PT Summary Assessment and Plan Potential Rehabilitation Potential Good Summary Impairments Pain,Strength,Balance, Sensation,Transfers,Gait, Activity Tolerance Progress Towards Goals Slow Progress due to Medical Issues Assessment Summary Sánchez is making slow progress with his mobility this session . He continues to be Ind for all bed mobility with HOB elevated. He is SBA for STS with FWW and for gait. He is hypotensive this session with symptoms of weakness and dizziness, could not progress gait further or stairs. PT is recommending home with assist and HHPT when medically stable . Goals Transfer Goal Independent,Front Wheeled Walker Gait Goal Independent,Front Wheel Walker Gait Distance 200 feet Other Goals up/down 2 steps with rail and SBA Days to Meet Goals 3 Frequency of Treatment Frequency Of Treatment Once a Day Treatment Plan Physical Therapy Treatment Plan Transfer Training,Gait Training,Therapeutic Exercise, Balance Retraining,Discharge Planning,Neuromuscular Re-ed Precautions Other Precautions falls before admit, monitor respiratory status Recommendations To Nursing Amount of Assist Needed Standby Assistance Discharge Recommendations PT Discharge Recommendations Home with Assistance,Home Health Other Discharge Recommendations has assist from Sister and MIRELLA that he lives with Transportation Needs at Discharge Private Vehicle
--- NOTE | 2023-09-21 11:58 | CM.DPC ---
DCP Cont. Reviewed EMR and team rounds for status updates. Per Hospitalist, pt will need one more day for continued IV ABO's and fluids. Plan is for d/c tomorrow to home, family will transport. Will monitor for any further evolving needs prior to d/c.
[2023-09-21] MEDS: POTASSIUM CHLORIDE 20 MEQ TAB 40 MEQ PO (12:07)
[2023-09-21] MEDS: SODIUM CHLORIDE 0.9% 500 ML 1000 ML IV (12:10)
--- NOTE | 2023-09-21 18:45 | PC.NURSE ---
Patient with x1 episode orthostatic BP with BP today, feeling slightly dizzy with standing BP 79/40. Upon sitting BP returned to 125/79. Notified MD and 500 cc NS bolus administered with good effect. Channing dc'd today at 1330 and patient voided this evening while up for BM. PVR <50
[2023-09-21 19:12] LABS: Vancomycin Trough 11.5 ug/mL (10-20)
[2023-09-21] MEDS: VANCOMYCIN TROUGH 1 REQUEST MISC (19:21)
[2023-09-21] MEDS: ATORVASTATIN 20 MG TABLET 40 MG PO (20:58)
[2023-09-21] MEDS: SERTRALINE 50 MG TABLET 25 MG PO (20:59)
[2023-09-21] MEDS: SODIUM CHLORIDE 0.9% FLUSH 10 ML IV (21:00)
[2023-09-21] MEDS: VANCOMYCIN PEAK 1 REQUEST MISC (21:30)
[2023-09-21 21:51] LABS: Vancomycin Peak 30.3 ug/mL (20-40)
[2023-09-22] VITALS (13 sets, daily range): BP systolic 55–147; BP diastolic 31–73; PULSE 60–130; RESP 16–20; TEMP 36.1–37.1; O2SAT 93–96
[2023-09-22] MEDS: PANTOPRAZOLE DR 20 MG TABLET PO (05:52)
[2023-09-22] MEDS: cefTRIAXone 1,000 MG in SODIUM CHLORIDE 0.9% 100 ML 200 MG IV (05:54)
[2023-09-22] MEDS: ALBUTEROL/IPRATROPIUM 3 ML AMPUL INH ×4 (07:33→20:11)
[2023-09-22] MEDS: BUDESONIDE 0.5 MG/2 ML NEB INH ×2 (07:33→20:11)
[2023-09-22] MEDS: predniSONE 20 MG TABLET 40 MG PO (08:29)
[2023-09-22] MEDS: FINASTERIDE 5 MG TABLET PO (08:30)
[2023-09-22] MEDS: CLOPIDOGREL 75 MG TABLET PO (08:30)
[2023-09-22] MEDS: TAMSULOSIN 0.4 MG CAPSULE PO (08:30)
[2023-09-22] MEDS: lisinopriL 5 MG TABLET 2.5 MG PO (08:30)
[2023-09-22] MEDS: FUROSEMIDE 40 MG TABLET PO (08:30)
[2023-09-22] MEDS: allopurinoL 100 MG TABLET 300 MG PO (08:30)
[2023-09-22] MEDS: METOPROLOL ER 50 MG TABLET PO (08:30)
[2023-09-22] MEDS: HEPARIN 5,000 UNIT/ML VIAL 5000 UNIT SUBCUT ×2 (08:31→20:20)
[2023-09-22] MEDS: FLUTICASONE 120 SPRAY/16 GM SPRAY.SUSP NASAL (08:36)
[2023-09-22] MEDS: INSULIN LISPRO 100 UNIT/ML 3ML VIAL SUBCUT ×4 (08:37→20:55)
[2023-09-22] MEDS: INSULIN GLARGINE 100 UNIT/ML 3ML PEN 10 UNIT SUBCUT (08:38)
[2023-09-22] MEDS: SODIUM CHLORIDE 0.9% FLUSH 10 ML IV ×2 (09:00→20:23)
--- NOTE | 2023-09-22 09:00 | PT.IPTN ---
Current Diagnoses Sepsis, unspecified organism (09/18/23) Physical Therapy Treatment Note M2 PT-IP Current Condition Start: 09/19/23 14:30 Freq: NEEDED Status: Active Protocol: Document 09/19/23 16:33 DLM (Rec: 09/19/23 16:51 DLM [id number]) Physical Therapy Current Condition Current Condition Evaluation Date 09/19/23 Treatment Diagnosis Septic, PNA, UTI, falls, decreased mobility and gait Onset Date 09/18/23 M3 PT-IP Subjective Start: 09/19/23 14:30 Freq: NEEDED Status: Active Protocol: Document 09/22/23 09:29 TS (Rec: 09/22/23 09:43 TS [id number]) Subjective Physical Therapy Visit Type Type Treatment Note Visit Start Time 09:00 Visit Stop Time 09:29 Notes Vitals: BP 107/64 sitting, 55/ 31 standing, 76/58 supine ~ 2mins, 118/72 supine ~5mins Resting HR 100, after mobility HR 130-160 Spo2 97% Number of VIDEO TECHNICIAN Visits 2 Physical Therapy Visit Comments Patient Comments Pt found sitting EOB, reports feeling better this morning, continues to have liquid like stool, feels bloated and is SOB. pt is agreeable to PT. M4 PT-IP Mobility and Gait Start: 09/19/23 14:30 Freq: NEEDED Status: Active Protocol: Document 09/22/23 09:29 TS (Rec: 09/22/23 09:43 TS [id number]) PT-Bed Mobility Assessment Sit to Supine Sit to Supine Independent Scooting Scooting to Edge of Bed Independent PT-Transfer Assessment Sit to and From Stand Sit to and from Stand Standby Assistance Equipment Transfer Assistive Device Gait Belt,Front Wheeled Walker Comments Mobility Comments Pt sitting EOB, BP 107/64. STS from bed SBA with FWW, BP in standing 55/31, pt reports dizziness, sits bakc EOB. Sit to supine Ind with BUE support . BP in supine 76/58 and 118/ 72. HR 130-160 after mobility in bed, pt reports some SOB. Rn was notified. PT-Balance Assessment Sitting Balance and Reactions Static Sitting Balance Ability Normal Dynamic Sitting Balance Ability Good Standing Balance and Reactions Static Standing Balance Ability Good Device Used FWW M5 PT-IP Objective Assessments Start: 09/19/23 14:30 Freq: NEEDED Status: Active Protocol: Document 09/19/23 16:33 DLM (Rec: 09/19/23 16:51 DLM [id number]) Orientation Orientation/Cognition Level of Alertness Alert Orientation Name,Age,Birthday,Month,Date, Year,Day of Week,Place, Situation Language Function Ability No Deficits Noted Safety Awareness Understands Safety Issues Memory Description No Deficits Noted Gross Range of Motion Upper Extremity ROM Assessment Within Functional Limits Impairments shoulder flexion to 110 degrees bilaterally, no pain end range Lower Extremity ROM Assessment Within Functional Limits Strength Upper Extremity Strength Assessment Within Functional Limits Lower Extremity Strength Assessment Left Impaired Hip flex 4+/5 Knee extension 4-/5 with pain in knee Ankle DF 5/5 Coordination Assessment Gross Coordination Gross Coordination WNL Sensation Assessment Sensation Gross Sensation Right UE Impaired,Left UE Impaired,Right LE Impaired, Left LE Impaired Sensation Description Paresthesia,Numbness,Pain Comments Sensation Comments neuropathy in hands and feet, pt reports he can not feel his feet and he has pain from ankles to knees, he can not feel hot/cold on his feet, numbness in hand especially finger tips, pt reports he drops things easily Muscle Tone Muscle Tone WNL Yes M6 PT-IP Treatment Start: 09/19/23 14:30 Freq: NEEDED Status: Active Protocol: Document 09/22/23 09:29 TS (Rec: 09/22/23 09:43 TS [id number]) Physical Therapy Treatment Education Education Provided Safety M7 PT-IP Assessment and Plan Start: 09/19/23 14:30 Freq: NEEDED Status: Active Protocol: Document 09/22/23 09:29 TS (Rec: 09/22/23 09:43 TS [id number]) PT Summary Assessment and Plan Potential Rehabilitation Potential Good Summary Impairments Pain,Strength,Balance, Sensation,Transfers,Gait, Activity Tolerance Progress Towards Goals Slow Progress due to Medical Issues Assessment Summary Sánchez continues to make slow progress with his mobility. He Ind for all bed mobility and SBA for STS with FWW. He continues to be orthostatic with symptoms of dizziness, see vitals above. He could not progress to gait and stairs this session. PT continues to recommend home with assist and HHPT. Goals Transfer Goal Independent,Front Wheeled Walker Gait Goal Independent,Front Wheel Walker Gait Distance 200 feet Other Goals up/down 2 steps with rail and SBA Days to Meet Goals 3 Frequency of Treatment Frequency Of Treatment Once a Day Treatment Plan Physical Therapy Treatment Plan Transfer Training,Gait Training,Therapeutic Exercise, Balance Retraining,Discharge Planning,Neuromuscular Re-ed Precautions Other Precautions falls before admit, monitor respiratory status, Orthostatic Recommendations To Nursing Amount of Assist Needed Standby Assistance Discharge Recommendations PT Discharge Recommendations Home with Assistance,Home Health Other Discharge Recommendations has assist from Sister and MIRELLA that he lives with Transportation Needs at Discharge Private Vehicle
[2023-09-22] MEDS: SODIUM CHLORIDE 0.9% 500 ML IV (10:15)
--- NOTE | 2023-09-22 10:39 | CM.DPC ---
DCP Cont. Reviewed EMR and team rounds for status updates. Pt had been improving, however now he is consistently orthostatic and has developed a severe, barking cough, and is cultures have been identified for his UTI. Plan is to continue IV fluids and ABO's, symptomatic tx for cough. D/C likely in a few days.
--- NOTE | 2023-09-22 12:10 | DI.ECHO.S_ITS ---
[facility]+ [facility] +---------+ : : [address] : [place] : : : : [id number] : : : : Phone: [phone]+ Echocardiogram Report + + :Name: VALERIA ARCE Study Date: 09/23/2023 Height: 70 in : :[facility] ReadingLocation: Weight: 242 lb : : Gender: Male BSA: 2.3 m2 : :: 1950 Age: 72 yrs BP: 125/68 mmHg: :Reason For Study: HISTORY OF CHF : :Ordering Physician: CHELSEY, : :DILSHAD Maier Performed By: Lucien Tijerina : :Referring: DILSHAD BARBOSA : + + Interpretation Summary This is a technically difficult study characterized by limited endocardial visualization and enhanced with Definity echo contrast. Afib with rvr; hr was 87-122 bpm during the exam Normal LV size; mild LVH; low normal EF estimated at 50-55%. RV is not well seen, but appears to be mildly dilated with mildly reduced RV systolic function. No significant valvular abnormalities. No prior study available for comparison. Procedure: A two-dimensional transthoracic echocardiogram with color flow and Doppler was performed. The study quality was technically difficult. There is no prior echocardiogram noted for this patient. A contrast injection of Definity was performed to improve assessment of LV function. The patient was in atrial fibrillation with heart rates between 87-122 bpm during the exam. Left Ventricle: The left ventricle is normal in size. Left ventricular wall thickness is mildly increased. The ejection fraction is estimated to be 50- 55%. Right Ventricle: The right ventricle is not well visualized. The right ventricle is mildly dilated. Right ventricular systolic function is mildly reduced. Atria: The left atrial size is normal. Right atrial size is normal. The interatrial septum is not well visualized. Mitral Valve: The mitral valve is normal in structure and function. There is no mitral valve stenosis. There is mild mitral regurgitation. Aortic Valve: The aortic valve is trileaflet. There is no aortic valve stenosis. No aortic regurgitation is present. Tricuspid Valve: The tricuspid valve is normal in structure and function. There is no tricuspid stenosis. No tricuspid regurgitation. Pulmonic Valve: The pulmonic valve is not well visualized. There is no pulmonic valvular stenosis. There is no pulmonic valvular regurgitation. Great Vessels: The aortic root is normal size. The dimensions of the ascending aorta are normal. The inferior vena cava was not visualized. Pericardium/ Pleura There is no pericardial effusion. There is no pleural effusion. MMode/2D Measurements & Calculations LVIDd: 5.2 cm LVOT diam: 2.2 cm LVIDs: 3.9 cm Ao root diam: 3.2 cm FS: 23.7 % asc Aorta Diam: 3.5 cm IVSd: 1.2 cm LVPWd: 1.1 cm LV kamara. diameter/BSA (cm/m^2): 2.3 LV sys. diameter/BSA (cm/m^2): 1.7 LA A2 area: 19.3 cm2 RA long axis: 4.5 cm LA A4 area: 21.5 cm2 RA area: 17.6 cm2 LA length (vol): 5.7 cm RA vol: 58.1 ml LA vol: 62.0 ml RA : 25.7 ml/m2 LA vol index: 27.4 ml/m2 RVD1 (basal): 4.0 cm RVD2 (mid): 3.4 cm Doppler Measurements & Calculations Ao V2 max: 98.7 cm/sec LVOT Max Garrick: 79.7 cm/sec Ao V2 mean: 73.1 cm/sec LV V1 max P.6 mmHg Ao max P.0 mmHg LV V1 VTI: 15.3 cm Ao mean P.4 mmHg JAYLYN(I,D): 3.4 cm2 Ao V2 VTI: 16.9 cm JAYLYN(V,D): 3.0 cm2 sev ratio: 0.91 JAYLYN indexed to BSA (cm^2/m^2): 1.5 MV E max garrick: 93.9 cm/sec PA V2 max: 125.0 cm/sec MV A max garrick: 25.0 cm/sec PA V2 mean: 85.7 cm/sec MV E/A: 3.8 PA mean P.4 mmHg MV dec time: 0.24 sec PA pr(Accel): 47.6 mmHg SV(LVOT): 57.6 ml Electronically signed by: Elaine Brothers M.D. on Reading Physician:09/23/2023 01:21 PM
--- NOTE | 2023-09-22 12:10 | DI.RAD.S_ITS ---
PROCEDURE: XR CHEST 1V INDICATIONS: assess for pleural effusions TECHNIQUE: One view of the chest was acquired. COMPARISON: [facility], CR, XR CHEST 1V, 09/18/2023, 12:11., CT 09/18/2023 FINDINGS: Surgical changes and devices: Median sternotomy wires, as before Lungs and pleura: Low lung volumes, but otherwise lungs are clear. Small left pleural effusion. No delete pneumothorax. Mediastinum: Mediastinal contours appear normal. Heart size is normal. Bones and chest wall: No suspicious bony lesions. Overlying soft tissues appear unremarkable. IMPRESSION: Compared to prior radiograph on 09/18/2023, similar persistent small left pleural effusion. Approved by: Michelle Rahman M.D. on 09/22/2023 at 12:12
[2023-09-22] MEDS: METOCLOPRAMIDE 10 MG/2 ML INJ IV (14:05)
[2023-09-22] MEDS: VANCOMYCIN 1,250 MG/250 ML PIGGYBACK 250 MG IV (14:05)
--- NOTE | 2023-09-22 14:15 | PM.PN.1 ---
Subjective Subjective Interval history: Patient notes ongoing diarrhea and stomach cramping. Feels bloated. Having positive orthostatics with 30-50pt drop in systolic BP. Echo and CXR ordered. Exam Vital Signs (past 8 hours): - 09/22/23 07:33 09/22/23 08:00 09/22/23 09:44 Temperature 97.8 F Pulse Rate 71 71 Pulse Rate [Orthostatic Lying] Pulse Rate [Orthostatic Sitting] Pulse Rate [Orthostatic Standing] Respiratory Rate 16 20 Blood Pressure 147/73 H Blood Pressure [Orthostatic Lying] Blood Pressure [Orthostatic Sitting] 107/64 Blood Pressure [Orthostatic Standing] Pulse Oximetry 95 95 Oxygen Delivery Method Room Air 09/22/23 09:52 09/22/23 10:02 09/22/23 10:03 Temperature Pulse Rate Pulse Rate [Orthostatic Lying] 130 H Pulse Rate [Orthostatic Sitting] Pulse Rate [Orthostatic Standing] Respiratory Rate Blood Pressure Blood Pressure [Orthostatic Lying] 76/58 L 76/58 L 76/58 L Blood Pressure [Orthostatic Sitting] 107/64 107/64 107/64 Blood Pressure [Orthostatic Standing] 55/31 L 55/31 L 55/31 L Pulse Oximetry Oxygen Delivery Method 09/22/23 11:15 09/22/23 13:11 Temperature Pulse Rate 84 Pulse Rate [Orthostatic Lying] 100 H Pulse Rate [Orthostatic Sitting] 95 H Pulse Rate [Orthostatic Standing] 60 Respiratory Rate 16 Blood Pressure Blood Pressure [Orthostatic Lying] 113/65 Blood Pressure [Orthostatic Sitting] 138/66 Blood Pressure [Orthostatic Standing] 81/48 L Pulse Oximetry 96 Oxygen Delivery Method Room Air Fraction of Inspired Oxygen 21 SaO2/FiO2 Ratio 466 Oxygen Delivery Method Room Air Oxygen Flow Rate 0 Narrative Exam Narrative: NAD, alert and oriented. Fluent speech. Lungs are clear, normal rate and effort. Heart is regular, no murmur gallop or rub. Abdomen is soft, protuberant. Nontender. Extremities are free of edema. Snell in place. Objective Labs 09/21/23 05:55 09/21/23 05:55 Labs: Laboratory Results - last 24 hr 09/21/23 09/21/23 18:43 21:20 Vancomycin Peak 30.3 Vancomycin Trough 11.5 PFSH Social History household members: family Smoking Status: Former smoker alcohol intake: current Assessment & Plan Assessment & Plan narrative: 1. Community-acquired pneumonia, present on admission and improving. 2. Sepsis with tachypnea, tachycardia, and lactic acidosis with a source of infection being pneumonia. Present on admission and improved. 3. Acute kidney injury, present on admission and improved. 4. Lactic acidosis, present on admission and resolved. 5. COPD, present on admission and improved. 6. DM 2, present on admission and active. 7. BPH, present on admission and active. 8. HLD, present on admission and active. 9. Constipation and abdominal cramping, resolved and now with diarrhea 10. Depression, present on admission and active. 11. Bladder mass was found incidentally on CT scan, present on admission and active. 12. UTI (Klebsiella), present on admmission and improving. 13. Bacteremia, present on admission and improving. 14. Orthostatic hypotension, dropping 30-50pts systolic when going from sitting to standing. Fluid bolus 500cc didn't improve. Will get Echo prior to more IVF as patient claims he has CHF. Plan: -continue empiric antibiotics and IV fluids . Blood cultures are: Staph epi and Staph warneri (1 hour apart on 09/17). Stop azithro after 3 days, continue ceftriaxone and vancomycin. Repeat blood cultures neg at 24 hours. Can stop vanco. The ceftriaxone is covering the urine Klebsiella. -We will monitor renal function. Remove Snell catheter. -continue corticosteroids, DuoNebs as needed. -started an antidepressant 09/18, he was agreeable to this. -Zoloft 25 HS 09/18. -physical therapy evaluation and discharge planning. -resumed all usual medications 09/18. -f/up echo, if normal EF can give more IVF to try to treat orthostatics -imodium PRN for diarrhea OOB, DISPO: 1-2 days home NEEDS OUPT URO FU FOR BLADDER MASS ON CT. Quality VTE Deep Vein Thrombosis/Pulmonary Embolism Present on Admission: No
--- NOTE | 2023-09-22 14:29 | PC.NURSE ---
Dr. Lemon made aware of postural drop while working w/PT. He received a 500ml bolus. Please see vital signs record for cont vs. Bladder scan requested by Dr. Lemon. Pt voided 400mls, PVR 28mls.
[2023-09-22] MEDS: LOPERAMIDE 2 MG CAPSULE PO (17:27)
--- NOTE | 2023-09-22 20:13 | RT ---
Treatment was delayed because the nurse was working with pt on BP issues
[2023-09-22] MEDS: SERTRALINE 50 MG TABLET 25 MG PO (20:20)
[2023-09-22] MEDS: ATORVASTATIN 20 MG TABLET 40 MG PO (20:20)
--- NOTE | 2023-09-22 23:08 | PC.NURSE ---
Patient is alert and oriented. He did not have any SOB at rest but when gotten up to sit on edge of bed and then to stand beside bed he did become SOB and tachypneic with RR to 28. He did have expiratory wheezing in right lobes but RA sat was 96%. HR irregular and became hypotensive with BP of 83/56 with standing but not sitting; denied any dizziness or lightheadness and was steady on feet.. Denied nausea. BT present and was having diarrhea on day shift but only had small watery stool when up to [facility] at start of shift. Is voiding per urinal and does report some burning at end of urinating. Is able to turn himself in bed but needs help to get to sitting position on edge of bed and needed 2 assist + walker when standing beside bed. Becomes very weak in bilateral LE and has difficulty holding head erect when standing beside bed. Bilateral UE and right lateral back bruising noted from falls; dressing to right elbow is CDI. Reports chronic numbness in fingertips of bilateral hands and bilateral feet to ankle. Both hands are reddened but blanchable with right > left. Refused to wear SCD's as they are irritating at night when I sleep but verbalizes understanding to ankle wave when awake. Denied pain. CBG remains high and 314 which MD is aware of and felt related to steroids. IV was due to be changed tonight by 2100 but patient refuses to have restarted as has bad veins and is hoping to go home tomorrow although knows that may not happen as plan is to do echo and that likely will not happen before Sunday. Fall risk score is high and bed alarm is activated.
[2023-09-23] VITALS (11 sets, daily range): BP systolic 54–158; BP diastolic 40–87; PULSE 68–145; RESP 16–19; TEMP 36.1–36.6; O2SAT 94–97
[2023-09-23] MEDS: HYDROCODONE/ACET 5/325 TABLET 2 TAB PO (00:37)
[2023-09-23] MEDS: cefTRIAXone 1,000 MG in SODIUM CHLORIDE 0.9% 100 ML 200 MG IV (04:29)
[2023-09-23] MEDS: SODIUM CHLORIDE 0.9% FLUSH 10 ML IV ×3 (04:30→21:26)
[2023-09-23] MEDS: PANTOPRAZOLE DR 20 MG TABLET 40 MG PO (05:12)
[2023-09-23] MEDS: predniSONE 20 MG TABLET 40 MG PO (08:15)
[2023-09-23] MEDS: FLUTICASONE 120 SPRAY/16 GM SPRAY.SUSP NASAL (08:15)
[2023-09-23] MEDS: allopurinoL 100 MG TABLET 300 MG PO (08:15)
[2023-09-23] MEDS: FINASTERIDE 5 MG TABLET PO (08:15)
[2023-09-23] MEDS: CLOPIDOGREL 75 MG TABLET PO (08:16)
[2023-09-23] MEDS: INSULIN GLARGINE 100 UNIT/ML 3ML PEN 10 UNIT SUBCUT (08:16)
[2023-09-23] MEDS: INSULIN LISPRO 100 UNIT/ML 3ML VIAL SUBCUT ×4 (08:16→21:07)
[2023-09-23] MEDS: HEPARIN 5,000 UNIT/ML VIAL 5000 UNIT SUBCUT (08:17)
--- NOTE | 2023-09-23 08:34 | PC.NURSE ---
Pt A&Ox4, positive for orthostatics with 30-40 point drop from sitting to standing, pt SOB with exertion, no c/o dizziness but reports . HR irregular, Dr. Riley notified; cardiac monitoring ordered, pt in Afib with HR 60s-110s, Dr. Riley aware. SpO2 97% on RA.
[2023-09-23] MEDS: CLOTRIMAZOLE 1% CRM 30 GM 1 APPLIC TOP (08:54)
[2023-09-23 10:15] LABS: Hematocrit 33.8 % (41-53); Hemoglobin 10.4 g/dL (13.5-17.5); Mean Corpuscular HGB Conc 30.8 % (30-36); Mean Corpuscular Hemoglobin 23.6 PG (26-34); Mean Corpuscular Volume 76.8 fL (80-100); Platelet Count 402 X10^3/uL (150-400); Red Cell Distribution Width 19.5 % (11.6-14.8); White Blood Cell Count 14.8 X10^3/uL (4.5-11.0)
[2023-09-23 10:19] LABS: Add Manual Diff / Slide Review YES; BUN Creatinine Ratio 19.7 (6-22); Blood Urea Nitrogen 25 mg/dL (9-20); Calcium 9.3 mg/dL (8.4-10.2); Carbon Dioxide 21 mmol/L (22-32); Chloride 108 mmol/L (98-107); Estimated Glomerular Filt Rate > 60 mL/min (>60); Glucose 211 mg/dL (80-110); HEMOLYSIS < 15 (0-50); Potassium 3.7 mmol/L (3.4-5.1); Sodium 137 mmol/L (137-145)
--- NOTE | 2023-09-23 10:25 | CM.DPNOTE ---
Addendum entered by TEMO Tinsley 09/23/23 10:29: Per RN, echo scheduled for tomorrow. SL Original Note: DCP Note RISK CONTROL MANAGER reviewed EMR. Per RN, pt went into afib with RVR. Pt is standby with walker. Per RN, pt pos for orthostatics. Per hospitalist in morning rounds, anticipate dc in a few days. No new CM needs identified. Per previous CM notes, declined HH/SNF/in home CG information. lives with sister and MIRELLA. Plan: continue abx/fluids. anticipate dc with family in a few days. No new CM needs identified. CM team will continue to monitor for further evolving need prior to dc. TEMO Tinsley
--- NOTE | 2023-09-23 10:33 | PT.IPTN ---
Current Diagnoses Sepsis, unspecified organism (09/18/23) Physical Therapy Treatment Note M2 PT-IP Current Condition Start: 09/19/23 14:30 Freq: NEEDED Status: Active Protocol: Document 09/19/23 16:33 DLM (Rec: 09/19/23 16:51 DLM [id number]) Physical Therapy Current Condition Current Condition Evaluation Date 09/19/23 Treatment Diagnosis Septic, PNA, UTI, falls, decreased mobility and gait Onset Date 09/18/23 M3 PT-IP Subjective Start: 09/19/23 14:30 Freq: NEEDED Status: Active Protocol: Document 09/23/23 10:05 MB (Rec: 09/23/23 10:33 MB [id number]) Subjective Physical Therapy Visit Type Type Treatment Note Visit Start Time 10:05 Visit Stop Time 10:22 Number of HR INTERNSHIP Visits 0 Physical Therapy Visit Comments Patient Comments Pt states when he got up with nsg this a.m., his BP and HR were variable again. M4 PT-IP Mobility and Gait Start: 09/19/23 14:30 Freq: NEEDED Status: Active Protocol: Document 09/23/23 10:05 MB (Rec: 09/23/23 10:33 MB [id number]) PT-Bed Mobility Assessment Sit to Supine Sit to Supine Independent Scooting Scooting to Edge of Bed Independent PT-Transfer Assessment Sit to and From Stand Sit to and from Stand Standby Assistance Equipment Transfer Assistive Device Front Wheeled Walker Comments Mobility Comments Pt con't with severe orthostasis with BP and HR in LUE: supine 146/78, 92; standing 90/47, 90; after a few steps to the chair 103/49, 106. Pt with GIBBS with minimal activity and he reports 3/4 Dyspnea Scale Gait Assessment Gait Gait Assistance Required: Standby Assistance Distance (Feet) 2 Assistive Devices Assistive Device Front Wheeled Walker Factors Limiting Gait Function Factors Limiting Gait Function Decreased Activity Tolerance, Pain,Poor Balance,Respiratory Distress Comments Gait Comments See mobility comments PT-Balance Assessment Sitting Balance and Reactions Static Sitting Balance Ability Normal Dynamic Sitting Balance Ability Good Standing Balance and Reactions Static Standing Balance Ability Good Dynamic Standing Balance Ability Fair Device Used FWW M5 PT-IP Objective Assessments Start: 09/19/23 14:30 Freq: NEEDED Status: Active Protocol: Document 09/19/23 16:33 DLM (Rec: 09/19/23 16:51 DL [id number]) Orientation Orientation/Cognition Level of Alertness Alert Orientation Name,Age,Birthday,Month,Date, Year,Day of Week,Place, Situation Language Function Ability No Deficits Noted Safety Awareness Understands Safety Issues Memory Description No Deficits Noted Gross Range of Motion Upper Extremity ROM Assessment Within Functional Limits Impairments shoulder flexion to 110 degrees bilaterally, no pain end range Lower Extremity ROM Assessment Within Functional Limits Strength Upper Extremity Strength Assessment Within Functional Limits Lower Extremity Strength Assessment Left Impaired Hip flex 4+/5 Knee extension 4-/5 with pain in knee Ankle DF 5/5 Coordination Assessment Gross Coordination Gross Coordination WNL Sensation Assessment Sensation Gross Sensation Right UE Impaired,Left UE Impaired,Right LE Impaired, Left LE Impaired Sensation Description Paresthesia,Numbness,Pain Comments Sensation Comments neuropathy in hands and feet, pt reports he can not feel his feet and he has pain from ankles to knees, he can not feel hot/cold on his feet, numbness in hand especially finger tips, pt reports he drops things easily Muscle Tone Muscle Tone WNL Yes M6 PT-IP Treatment Start: 09/19/23 14:30 Freq: NEEDED Status: Active Protocol: Document 09/23/23 10:05 MB (Rec: 09/23/23 10:33 MB [id number]) Physical Therapy Treatment Education Education Provided Safety M7 PT-IP Assessment and Plan Start: 09/19/23 14:30 Freq: NEEDED Status: Active Protocol: Document 09/23/23 10:05 MB (Rec: 09/23/23 10:33 MB [id number]) PT Summary Assessment and Plan Potential Rehabilitation Potential Fair Summary Impairments Balance,Transfers,Gait, Activity Tolerance Progress Towards Goals Slow Progress due to Activity Tolerance Assessment Summary Pt con't with severe orthostasis with large drop both in systolic and diastolic BPs with transfers. His is moderately dyspneic with mobility as well. Up to chair only today d/t orthostasis. Goals Transfer Goal Independent,Front Wheeled Walker Gait Goal Independent,Front Wheel Walker Gait Distance 200 feet Other Goals up/down 2 steps with rail and SBA Days to Meet Goals 5 Frequency of Treatment Frequency Of Treatment Once a Day Treatment Plan Physical Therapy Treatment Plan Transfer Training,Gait Training,Therapeutic Exercise, Balance Retraining,Discharge Planning,Neuromuscular Re-ed Other Recommendations and Next Treatment Ongoing orthostatic check Focus Precautions Other Precautions falls before admit, monitor respiratory status, Orthostatic Recommendations To Nursing Amount of Assist Needed Standby Assistance Discharge Recommendations PT Discharge Recommendations Home with Assistance,Home Health Other Discharge Recommendations has assist from Sister and MIRELLA that he lives with Transportation Needs at Discharge Private Vehicle
[2023-09-23 10:36] LABS: Procalcitonin 0.33 ng/mL (<0.5)
[2023-09-23 10:51] LABS: TSH w/ Reflex to FT4 1.98 uIU/mL (0.47-4.68)
[2023-09-23 11:01] LABS: Anisocytosis 1+; Neutrophils Absolute Manual 12136 /uL (3000-5900); Poikilocytosis 1+; Total Cells Counted 100
[2023-09-23] MEDS: ALBUTEROL/IPRATROPIUM 3 ML AMPUL INH ×4 (11:02→23:24)
[2023-09-23] MEDS: BUDESONIDE 0.5 MG/2 ML NEB INH ×2 (11:02→20:12)
--- NOTE | 2023-09-23 12:28 | PM.PN.1 ---
Subjective Subjective Date Patient Seen: 09/23/23 Interval history: Pt states cough is completely resolved. He has baseline severe GIBBS and can only walk about 15 ft, likely COPD related. He remains severely orthastatic with 50+ drops in systolic BP with standing associated with dizziness and dyspnea. Lisinopril, furosemide and metoprolol were stopped yesterday and he got 500 cc bolus as well. ECHO done and report pending. He has hx 3 vessel CABG in 2004 and no cardiology f/u in last 10-15 years. He was noted to be in afib today with HR 114. Exam Vital Signs (past 8 hours): - 09/23/23 08:00 09/23/23 08:00 09/23/23 11:03 Temperature 97.6 F Pulse Rate 82 83 Pulse Rate [Orthostatic Lying] 92 H Pulse Rate [Orthostatic Sitting] 68 Pulse Rate [Orthostatic Standing] 82 Respiratory Rate 18 16 Blood Pressure 125/68 Blood Pressure [Orthostatic Lying] 143/73 H Blood Pressure [Orthostatic Sitting] 88/43 L Blood Pressure [Orthostatic Standing] 125/68 Pulse Oximetry 94 96 Oxygen Delivery Method Room Air Fraction of Inspired Oxygen 21 SaO2/FiO2 Ratio 466 Oxygen Delivery Method Room Air Oxygen Flow Rate 0 Narrative Exam Narrative: Gen: alert, NAD sitting in chair Lungs: breathing non-labored at rest, CTA CV: irregularly irregular Ext: no edema Neuro: nl speech, pleasant affect, no SI Objective Labs 09/23/23 10:00 09/23/23 10:00 Labs: Laboratory Results - last 24 hr 09/23/23 10:00 WBC 14.8 H RBC 4.40 L Hgb 10.4 L Hct 33.8 L MCV 76.8 L MCH 23.6 L MCHC 30.8 RDW 19.5 H Plt Count 402 H Neut % (Auto) Not Reportable Lymph % (Auto) Not Reportable [place] % (Auto) Not Reportable Eos % (Auto) Not Reportable Baso % (Auto) Not Reportable Lymph # (Auto) Not Reportable [place] # (Auto) Not Reportable Baso # (Auto) Not Reportable Total Counted 100 Seg Neutrophils % 81.0 H Band Neutrophils % 1.0 L Lymphocytes % (Manual) 10.0 L Monocytes % (Manual) 7.0 Myelocytes % 1.0 H Neutrophils # (Manual) 40724 H RBC Morphology See below Poikilocytosis 1+ H Anisocytosis 1+ H Sodium 137 Potassium 3.7 Chloride 108 H Carbon Dioxide 21 L BUN 25 H Creatinine 1.27 H Estimated GFR > 60 BUN/Creatinine Ratio 19.7 Glucose 211 H Calcium 9.3 Procalcitonin 0.33 [facility] 1.98 [facility] Social History household members: family Smoking Status: Former smoker alcohol intake: current Assessment & Plan Assessment & Plan narrative: 1. Community-acquired pneumonia, present on admission and improving. 2. Sepsis with tachypnea, tachycardia, and lactic acidosis with a source of infection being pneumonia. Present on admission and resolved. 3. Acute kidney injury, present on admission and resolved. 4. Lactic acidosis, present on admission and resolved. 5. COPD with exacerbation, present on admission and improved. 6. DM 2, present on admission and active, controlled with A1c 5.3%. On insulin in hospital but can discharge on oral meds. 7. BPH, present on admission and active. 8. CAD, hx 3 v CABG 2004, present on admission and active. 9. Chronic constipation, active 10. Depression, present on admission and active. 11. Bladder mass was found incidentally on CT scan, present on admission and active. 12. UTI (Klebsiella), present on admmission and resolved. 13. Bacteremia, presumed contaminant, present on admission, resolved. 14. Orthostatic hypotension, dropping 30-50pts systolic when going from sitting to standing. Fluid bolus 500cc didn't improve. ECHO pending. 15. Atrial fibrillation with RVR, noted 09/22, active Plan: -started Eliquis 09/22 for afib -will likely need at least low dose metoprolol for rate control -furosemide, lisinopril and metoprolol currently being held due to severe orthostatsis -d/c antibiotics, received azithro 09/17-09/20 and ceftriaxone 09/17-09/22 -d/c prednsone, received steroids on admit thru 09/22 -cont nebs, MDI -started sertraline 25 mg daily on 09/18, he was agreeable to this for chronic depression -physical therapy evaluation and discharge plannin, rec services, pt lives with family and has good support -f/up echo, if normal EF can give more IVF and consider permanently d/c diuretic -miralax for chronic constipation OOB, DISPO: 1-2 days home NEEDS OUPT URO FU FOR BLADDER MASS ON CT. Quality VTE Deep Vein Thrombosis/Pulmonary Embolism Present on Admission: No
[2023-09-23] MEDS: METOPROLOL ER 25 MG TABLET PO (13:30)
[2023-09-23] MEDS: LACTATED RINGERS 1,000 ML 1000 ML IV (14:06)
[2023-09-23] MEDS: SERTRALINE 50 MG TABLET 25 MG PO (21:06)
[2023-09-23] MEDS: ATORVASTATIN 20 MG TABLET 40 MG PO (21:06)
[2023-09-23] MEDS: APIXABAN 5 MG TABLET PO (21:06)
[2023-09-24] VITALS (8 sets, daily range): BP systolic 76–150; BP diastolic 45–93; PULSE 71–100; RESP 17–22; TEMP 36–36.8; O2SAT 94–96
[2023-09-24] MEDS: HYDROCODONE/ACET 5/325 TABLET 2 TAB PO (00:15)
[2023-09-24] MEDS: PANTOPRAZOLE DR 20 MG TABLET 40 MG PO (07:56)
[2023-09-24] MEDS: INSULIN GLARGINE 100 UNIT/ML 3ML PEN 10 UNIT SUBCUT (07:57)
[2023-09-24] MEDS: INSULIN LISPRO 100 UNIT/ML 3ML VIAL SUBCUT ×4 (07:57→21:43)
[2023-09-24] MEDS: FLUTICASONE 120 SPRAY/16 GM SPRAY.SUSP NASAL (07:57)
[2023-09-24] MEDS: CLOTRIMAZOLE 1% CRM 30 GM 1 APPLIC TOP (09:03)
[2023-09-24] MEDS: CLOPIDOGREL 75 MG TABLET PO (09:04)
[2023-09-24] MEDS: polyethylene glycoL 3350 17 GM POWD.PACK PO (09:04)
[2023-09-24] MEDS: allopurinoL 100 MG TABLET 300 MG PO (09:04)
[2023-09-24] MEDS: SODIUM CHLORIDE 0.9% FLUSH 10 ML IV ×2 (09:05→21:43)
[2023-09-24] MEDS: METOPROLOL ER 25 MG TABLET PO (09:05)
[2023-09-24] MEDS: FINASTERIDE 5 MG TABLET PO (09:05)
[2023-09-24] MEDS: APIXABAN 5 MG TABLET PO ×2 (09:05→21:43)
--- NOTE | 2023-09-24 09:40 | OT.IP.TRT ---
Current Diagnoses Sepsis, unspecified organism (09/18/23) Occupational Therapy Treatment Note M2 OT-IP Current Condition Start: 09/19/23 16:38 Freq: Status: Active Protocol: Document 09/19/23 16:39 CGR (Rec: 09/19/23 16:59 CGR [id number]) Occupational Therapy Current Condition Current Condition Evaluation Date 09/19/23 Treatment Diagnosis community aquired PNA, sepsis, COPD Diagnosis Onset Date 09/18/23 M3 OT- IP Subjective and Pain Start: 09/19/23 16:38 Freq: Status: Active Protocol: Document 09/24/23 12:36 CGR (Rec: 09/24/23 12:40 CGR [id number]) OT- Subjective Occupational Therapy Visit Type Type Treatment Note Visit Start Time 09:16 Visit Stop Time 09:40 Notes Orthostatics done within the last 2 hours with significant drop in BP. Occupational Therapy Visit Comments Patient Comments I have already gotten cleaned up for the day. OT Pain Assessment Pain When Pain Assessed At Rest Pain Present Pain Present Denied Pain M4 OT- IP ADL's Start: 09/19/23 16:38 Freq: Status: Active Protocol: Document 09/21/23 09:33 CCC (Rec: 09/21/23 09:39 CCC [id number]) OT ADL-Dressing General Eval Lower Body Dressing Ability Maximum Assistance Comments OT Dressing Comments Pt too tired after showering and needing assist for his socks and breif. Pt states to cloth picker a mortuary technician for home use . OT ADL-Toileting General Evaluation Toileting Ability Total Assistance Comments OT Toileting Comments pt with robles M5 OT- IP IADL's Start: 09/19/23 16:38 Freq: Status: Active Protocol: Document 09/19/23 16:39 CGR (Rec: 09/19/23 16:59 CGR [id number]) OT-Instrumental Activities of Daily Living Deficits IADL Deficits Identified No Deficits Home Safety Awareness Awareness of Need for Assistance at Home Good Awareness Ability to Problem Solve Emergency Able to Problem Solve Situations Medication Management Medication Management No Deficits Identified Money Management Money Management Caregiver Provides Assistance Meal Preparation Meal Preparation Caregiver Provides Assist Hearing Impaired Itinerant Teacher Hearing Impaired Itinerant Teacher Caregiver Provides Assist Driving Driving Comments 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 M7 OT- IP Mobility and Balance Start: 09/19/23 16:38 Freq: Status: Active Protocol: Document 09/24/23 12:36 CGR (Rec: 09/24/23 12:40 CGR [id number]) OT- Bed Mobility Assessment Supine to Sit Supine to Sit Assist Independent Scooting Scooting to Edge of Bed Independent OT-Transfer Assessment Sit to and From Stand Sit to and from Stand Standby Assistance Transfers Transfer Ability Standby Assistance Technique Transfer Destination Bed,Chair Transfer Technique Stand Step Pivot Devices Transfer Assistive Devices Gait Belt,Front Wheeled Walker Comments Mobility Comments Pt is able to transfer quickly from the EOB to chair without being symptomatic. Pt then performed 3 sets of 5 sit to stands with short rest break between activity. OT- Balance Assessment Sitting Balance and Reactions Static Sitting Balance Ability Good Dynamic Sitting Balance Ability Good M8 OT- IP Objective Assessments Start: 09/19/23 16:38 Freq: Status: Active Protocol: Document 09/19/23 16:39 CGR (Rec: 09/19/23 16:59 CGR [id number]) OT Gross Range of Motion Upper Extremity Range of Motion Assessment Within Functional Limits OT Strength Upper Extremity Strength Assessment Within Functional Limits Comments Strength Comments 4+/5 OT- Coordination Assessment Upper Extremity Finger to Nose Test Within Functional Limits Finger Tapping Test Within Functional Limits OT-Muscle Tone Assessment Muscle Tone WNL Yes OT Sensation Assessment Edema Edema Absent M9 OT- IP Assessment and Plan Start: 09/19/23 16:38 Freq: Status: Active Protocol: Document 09/24/23 12:36 CGR (Rec: 09/24/23 12:40 CGR [id number]) OT Summary Assessment and Plan Potential Rehabilitation Potential Good Analytic Complexity at Evaluation Moderate Summary OT Impairments Balance,Functional Mobility, Grooming,Dressing,Toileting, Bathing,Toilet Transfers, Shower Transfers,Activity Tolerance Progress Towards Goals Progressing Toward Goals Assessment Summary Pt continues to do well with therapy and is limited by SOB and now his BP. Pt declined ADLs as he had already performed but did 3 sets of 5 reps of sit to stands with this video game script writer. Pt did well with sitting BP after each set as follows: 104/65 118/68 109/64 Pt will continue to benefit from therapy services while hospitalized. Recommendation is for home when medically ready. Goals Grooming Goal Independent Dressing Goal Independent Toileting Goal Independent Bathing Goal Independent Toilet Transfer Goal Independent Shower Transfer Goal Independent Days to Meet Goals 9 Frequency of Treatment Frequency Of Treatment Once a Day Treatment Plan OT Treatment Plan ADL Training,Functional Mobility,Patient/Family Education,Discharge Planning Other Treatment Recommendations and Next energy conservation, ADLs Treatment Focus standing, home safety. Discharge Recommendations OT Discharge Recommendations Home with Assistance,Home Health Home Equipment Needs mortuary technician Transportation Needs at Discharge Private Vehicle
--- NOTE | 2023-09-24 10:00 | PT.IPTN ---
Current Diagnoses Sepsis, unspecified organism (09/18/23) Physical Therapy Treatment Note M2 PT-IP Current Condition Start: 09/19/23 14:30 Freq: NEEDED Status: Active Protocol: Document 09/19/23 16:33 DLM (Rec: 09/19/23 16:51 DLM [id number]) Physical Therapy Current Condition Current Condition Evaluation Date 09/19/23 Treatment Diagnosis Septic, PNA, UTI, falls, decreased mobility and gait Onset Date 09/18/23 M3 PT-IP Subjective Start: 09/19/23 14:30 Freq: NEEDED Status: Active Protocol: Document 09/24/23 09:28 MB (Rec: 09/24/23 10:00 MB [id number]) Subjective Physical Therapy Visit Type Type Treatment Note Visit Start Time 09:28 Visit Stop Time 09:36 Number of PAPER CAP MACHINE OPERATOR Visits 0 Physical Therapy Visit Comments Patient Comments Pt up to chair with OT upon PT arrival and PT checks in to see if pt con't with severe orthostasis and pt con't and so PT provides some education and treatment as appropriate given activity intolerance. M4 PT-IP Mobility and Gait Start: 09/19/23 14:30 Freq: NEEDED Status: Active Protocol: Document 09/24/23 09:28 MB (Rec: 09/24/23 10:00 MB [id number]) PT-Transfer Assessment Sit to and From Stand Sit to and from Stand Standby Assistance Equipment Transfer Assistive Device Front Wheeled Walker Comments Mobility Comments Pt con't with severe orthostasis with nsg this am with BP dropping as low as 76/ 50. Vitals monitored in sitting and after STS in chair and BP and HR are 104/63, 85- 105 BPM and BP increases to 118/68, 70 after 5 STS and decreases again to 109/64m 103 after 4 more STS. Pt reports 3/4 dyspnea scale and is GIBBS with sats in the mid to low 90s on RA except one drop to 87-88% when exercising with STS. Ed pt in slow and alternation LAQs, marching and B APs in sitting to help with BP. PT-Balance Assessment Sitting Balance and Reactions Static Sitting Balance Ability Normal Dynamic Sitting Balance Ability Good Standing Balance and Reactions Static Standing Balance Ability Good Dynamic Standing Balance Ability Fair Device Used FWW M5 PT-IP Objective Assessments Start: 09/19/23 14:30 Freq: NEEDED Status: Active Protocol: Document 09/19/23 16:33 DLM (Rec: 09/19/23 16:51 DLM [id number]) Orientation Orientation/Cognition Level of Alertness Alert Orientation Name,Age,Birthday,Month,Date, Year,Day of Week,Place, Situation Language Function Ability No Deficits Noted Safety Awareness Understands Safety Issues Memory Description No Deficits Noted Gross Range of Motion Upper Extremity ROM Assessment Within Functional Limits Impairments shoulder flexion to 110 degrees bilaterally, no pain end range Lower Extremity ROM Assessment Within Functional Limits Strength Upper Extremity Strength Assessment Within Functional Limits Lower Extremity Strength Assessment Left Impaired Hip flex 4+/5 Knee extension 4-/5 with pain in knee Ankle DF 5/5 Coordination Assessment Gross Coordination Gross Coordination WNL Sensation Assessment Sensation Gross Sensation Right UE Impaired,Left UE Impaired,Right LE Impaired, Left LE Impaired Sensation Description Paresthesia,Numbness,Pain Comments Sensation Comments neuropathy in hands and feet, pt reports he can not feel his feet and he has pain from ankles to knees, he can not feel hot/cold on his feet, numbness in hand especially finger tips, pt reports he drops things easily Muscle Tone Muscle Tone WNL Yes M6 PT-IP Treatment Start: 09/19/23 14:30 Freq: NEEDED Status: Active Protocol: Document 09/23/23 10:05 MB (Rec: 09/23/23 10:33 MB [id number]) Physical Therapy Treatment Education Education Provided Safety M7 PT-IP Assessment and Plan Start: 09/19/23 14:30 Freq: NEEDED Status: Active Protocol: Document 09/24/23 09:28 MB (Rec: 09/24/23 10:00 MB [id number]) PT Summary Assessment and Plan Potential Rehabilitation Potential Fair Summary Impairments Balance,Transfers,Gait, Activity Tolerance Progress Towards Goals Slow Progress due to Activity Tolerance Assessment Summary Pt con't with severe orthostasis and GIBBS. His HR is high and variable. During rounds, physician states that pt may have a medication change to help with dropping BP and so he might be able to tolerate more mobility next date. Goals Transfer Goal Independent,Front Wheeled Walker Gait Goal Independent,Front Wheel Walker Gait Distance 200 feet Other Goals up/down 2 steps with rail and SBA Days to Meet Goals 5 Frequency of Treatment Frequency Of Treatment Once a Day Treatment Plan Physical Therapy Treatment Plan Transfer Training,Gait Training,Therapeutic Exercise, Balance Retraining,Discharge Planning,Neuromuscular Re-ed Other Recommendations and Next Treatment Ongoing orthostatic check Focus Precautions Other Precautions falls before admit, monitor respiratory status, Orthostatic Recommendations To Nursing Amount of Assist Needed Standby Assistance Discharge Recommendations PT Discharge Recommendations Home with Assistance,Home Health Other Discharge Recommendations has assist from Sister and MIRELLA that he lives with Transportation Needs at Discharge Private Vehicle
--- NOTE | 2023-09-24 10:30 | CM.DPNOTE ---
Addendum entered by TEMO Tinsley 09/24/23 10:50: Dona from [facility] reports able to accept. SL Original Note: DCP Note EGG BREAKER reviewed EMR. Per hospitalist in rounds, unclear dc timeline at this time. Per RN, still in afib. EGG BREAKER entered room and introduced self and role. pt resting in chair. Reports now open to HH. Due to lack of PCP, [facility] only current option. Pt reports understanding. Pt denies other CM/dcp needs at this time. EGG BREAKER provided pt with [facility] brochure, [facility] booklet, and card for establishing PCP with physicians. Pt reports he is going to try and establish care with PCP as soon as possible. EGG BREAKER lvm with Dona at [facility] regarding new referral. BOB Montoya kindly agreed to fax initial referral information. F2F completed in anticipation of HH at dc. ORder completed. Plan: anticipate dc with family in a few days and [facility] pending acceptance. CM team will continue to monitor for further evolving need prior to dc. TEMO Tinsley
--- NOTE | 2023-09-24 12:58 | PM.PN.1 ---
Subjective Subjective Date Patient Seen: 09/23/23 Interval history: Pt states cough is completely resolved. He has baseline severe GIBBS and can only walk about 15 ft, likely COPD related. He remains severely orthastatic with 50+ drops in systolic BP with standing associated with dizziness and dyspnea. Lisinopril, furosemide and metoprolol were stopped yesterday and he got 500 cc bolus as well. ECHO done and report pending. He has hx 3 vessel CABG in 2004 and no cardiology f/u in last 10-15 years. He was noted to be in afib today with HR 114. Restarted metoprolol with improvement. His home finasteride was stopped, will trial midodrine today. Exam Vital Signs (past 8 hours): - 09/24/23 08:00 09/24/23 08:55 09/24/23 09:05 Pulse Rate Pulse Rate [Orthostatic Lying] 88 Pulse Rate [Orthostatic Sitting] 71 Pulse Rate [Orthostatic Standing] 100 H Blood Pressure 135/74 Blood Pressure [Orthostatic Lying] 135/74 Blood Pressure [Orthostatic Sitting] 125/72 Blood Pressure [Orthostatic Standing] 76/50 L Pulse Oximetry 96 Oxygen Flow Rate 0 09/24/23 11:00 09/24/23 11:00 Pulse Rate 79 Pulse Rate [Orthostatic Lying] Pulse Rate [Orthostatic Sitting] Pulse Rate [Orthostatic Standing] Blood Pressure 109/64 109/64 Blood Pressure [Orthostatic Lying] Blood Pressure [Orthostatic Sitting] Blood Pressure [Orthostatic Standing] Pulse Oximetry 96 Oxygen Flow Rate 0 Fraction of Inspired Oxygen 21 SaO2/FiO2 Ratio 466 Oxygen Delivery Method Room Air Oxygen Flow Rate 0 Narrative Exam Narrative: Gen: alert, NAD sitting in chair Lungs: breathing non-labored at rest, CTA CV: irregularly irregular Ext: no edema Neuro: nl speech, pleasant affect, no SI Objective Labs 09/23/23 10:00 09/23/23 10:00 [facility] Social History household members: family Smoking Status: Former smoker alcohol intake: current Assessment & Plan Assessment & Plan narrative: 1. Community-acquired pneumonia, present on admission and improving. 2. Sepsis with tachypnea, tachycardia, and lactic acidosis with a source of infection being pneumonia. Present on admission and resolved. 3. Acute kidney injury, present on admission and resolved. 4. Lactic acidosis, present on admission and resolved. 5. COPD with exacerbation, present on admission and improved. 6. DM 2, present on admission and active, controlled with A1c 5.3%. On insulin in hospital but can discharge on oral meds. 7. BPH, present on admission and active. 8. CAD, hx 3 v CABG 2004, present on admission and active. 9. Chronic constipation, active 10. Depression, present on admission and active. 11. Bladder mass was found incidentally on CT scan, present on admission and active. 12. UTI (Klebsiella), present on admmission and resolved. 13. Bacteremia, presumed contaminant, present on admission, resolved. 14. Orthostatic hypotension, dropping 30-50pts systolic when going from sitting to standing. Fluid bolus 500cc didn't improve. ECHO pending. 15. Atrial fibrillation with RVR, noted 09/22, active Plan: -started Eliquis 09/22 for afib -will likely need at least low dose metoprolol for rate control -furosemide, lisinopril and metoprolol currently being held due to severe orthostatsis. Will start 5 mg TID midodrine today. Will hold finasteride. -d/c antibiotics, received azithro 09/17-09/20 and ceftriaxone 09/17-09/22 -d/c prednsone, received steroids on admit thru 09/22 -cont BRYANNA keller -started sertraline 25 mg daily on 09/18, he was agreeable to this for chronic depression -physical therapy evaluation and discharge plannin, rec services, pt lives with family and has good support -echo unremarkable. -miralax for chronic constipation OOB, DISPO: 1-2 days home NEEDS OUPT URO FU FOR BLADDER MASS ON CT. Quality VTE Deep Vein Thrombosis/Pulmonary Embolism Present on Admission: No
--- NOTE | 2023-09-24 14:56 | DIET.CONS2 ---
Dietary Inpatient Consultation Note Admission Date: 09/18/2023 15:53 72 y M admitted for pneumonia. Nutrition screened for LOS day 5. Patient is nutritionally adequate. He has PMH of diabetes that is controlled with A1c of 5.3% on 09/19/23. There is no nutrition related diagnosis at this time. Diet: 09/18/23 Dinner Carbohydrate Consistent Diet Diet Modifications: Carbohydrate level: Medium (3 CHO) Reflex DM orders: No Nutrition Percent Meal Consumed 100% 09/24/23 10:05 Percent Meal Consumed 100% 09/23/23 09:14 Percent Meal Consumed 100% 09/22/23 17:53 Electronically Signed by: Yenifer Pan 09/24/23 14:56 Clinical Dietitian [address] [id number]
[2023-09-24] MEDS: MIDODRINE HCL 5 MG TABLET PO (17:03)
[2023-09-24] MEDS: BUDESONIDE 0.5 MG/2 ML NEB INH (19:53)
[2023-09-24] MEDS: ALBUTEROL/IPRATROPIUM 3 ML AMPUL INH (19:53)
[2023-09-24] MEDS: ATORVASTATIN 20 MG TABLET 40 MG PO (21:42)
[2023-09-24] MEDS: SERTRALINE 50 MG TABLET 25 MG PO (21:42)
[2023-09-25] VITALS (12 sets, daily range): BP systolic 70–142; BP diastolic 39–86; PULSE 18–99; RESP 16–22; TEMP 35.7–36.8; O2SAT 93–98
[2023-09-25] MEDS: PANTOPRAZOLE DR 20 MG TABLET 40 MG PO (06:47)
[2023-09-25] MEDS: MIDODRINE HCL 5 MG TABLET PO ×3 (06:47→17:15)
[2023-09-25] MEDS: CLOPIDOGREL 75 MG TABLET PO (08:15)
[2023-09-25] MEDS: APIXABAN 5 MG TABLET PO ×2 (08:15→21:01)
[2023-09-25] MEDS: METOPROLOL ER 25 MG TABLET PO ×3 (08:15→21:01)
[2023-09-25] MEDS: INSULIN LISPRO 100 UNIT/ML 3ML VIAL SUBCUT ×4 (08:17→20:57)
[2023-09-25] MEDS: allopurinoL 100 MG TABLET 300 MG PO (08:17)
[2023-09-25] MEDS: CLOTRIMAZOLE 1% CRM 30 GM 1 APPLIC TOP (08:18)
[2023-09-25] MEDS: INSULIN GLARGINE 100 UNIT/ML 3ML PEN 10 UNIT SUBCUT (08:18)
[2023-09-25] MEDS: SODIUM CHLORIDE 0.9% FLUSH 10 ML IV ×2 (08:42→21:04)
[2023-09-25] MEDS: polyethylene glycoL 3350 17 GM POWD.PACK PO (08:42)
--- NOTE | 2023-09-25 09:17 | PT.IPTN ---
Current Diagnoses Sepsis, unspecified organism (09/18/23) Physical Therapy Treatment Note M2 PT-IP Current Condition Start: 09/19/23 14:30 Freq: NEEDED Status: Active Protocol: Document 09/19/23 16:33 DLM (Rec: 09/19/23 16:51 DLM [id number]) Physical Therapy Current Condition Current Condition Evaluation Date 09/19/23 Treatment Diagnosis Septic, PNA, UTI, falls, decreased mobility and gait Onset Date 09/18/23 M3 PT-IP Subjective Start: 09/19/23 14:30 Freq: NEEDED Status: Active Protocol: Document 09/25/23 09:59 TS (Rec: 09/25/23 10:10 TS [id number]) Subjective Physical Therapy Visit Type Type Treatment Note Visit Start Time 09:17 Visit Stop Time 09:42 Number of BRANCH SERVICE ASSOCIATE Visits 1 Physical Therapy Visit Comments Patient Comments Pt found resting in bed side chair, reports feeling weak, SOB and continues to get dizzy when up in room. pt is agreeable to PT. M4 PT-IP Mobility and Gait Start: 09/19/23 14:30 Freq: NEEDED Status: Active Protocol: Document 09/25/23 09:59 TS (Rec: 09/25/23 10:10 [id number]) PT-Transfer Assessment Sit to and From Stand Sit to and from Stand Standby Assistance Equipment Transfer Assistive Device Gait Belt,Front Wheeled Walker Comments Mobility Comments STS from chair SBA with FWW, pt has good standing balance. He ambulated in room ~20'SBA with FWW, pt reports fatigue, dizziness and SOB, pt requested back to chair. Pt sat in chair ~3mins, was agreeable to attempt more STS. STS x3 from SBA, pt required ~30secs in between standing to recover. Spo2 remained in mid 90's during mobility. Pt was left in chair, all needs met. Gait Assessment Gait Gait Assistance Required: Standby Assistance Distance (Feet) 20 Assistive Devices Assistive Device Gait Belt,Front Wheeled Walker Factors Limiting Gait Function Factors Limiting Gait Function Decreased Activity Tolerance, Pain,Poor Balance,Respiratory Distress Comments Gait Comments See mobility comments PT-Balance Assessment Sitting Balance and Reactions Static Sitting Balance Ability Good Dynamic Sitting Balance Ability Good Standing Balance and Reactions Static Standing Balance Ability Good Dynamic Standing Balance Ability Fair Device Used FWW M5 PT-IP Objective Assessments Start: 09/19/23 14:30 Freq: NEEDED Status: Active Protocol: Document 09/19/23 16:33 DLM (Rec: 09/19/23 16:51 DLM [id number]) Orientation Orientation/Cognition Level of Alertness Alert Orientation Name,Age,Birthday,Month,Date, Year,Day of Week,Place, Situation Language Function Ability No Deficits Noted Safety Awareness Understands Safety Issues Memory Description No Deficits Noted Gross Range of Motion Upper Extremity ROM Assessment Within Functional Limits Impairments shoulder flexion to 110 degrees bilaterally, no pain end range Lower Extremity ROM Assessment Within Functional Limits Strength Upper Extremity Strength Assessment Within Functional Limits Lower Extremity Strength Assessment Left Impaired Hip flex 4+/5 Knee extension 4-/5 with pain in knee Ankle DF 5/5 Coordination Assessment Gross Coordination Gross Coordination WNL Sensation Assessment Sensation Gross Sensation Right UE Impaired,Left UE Impaired,Right LE Impaired, Left LE Impaired Sensation Description Paresthesia,Numbness,Pain Comments Sensation Comments neuropathy in hands and feet, pt reports he can not feel his feet and he has pain from ankles to knees, he can not feel hot/cold on his feet, numbness in hand especially finger tips, pt reports he drops things easily Muscle Tone Muscle Tone WNL Yes M6 PT-IP Treatment Start: 09/19/23 14:30 Freq: NEEDED Status: Active Protocol: Document 09/25/23 09:59 TS (Rec: 09/25/23 10:10 [id number]) Physical Therapy Treatment Education Education Provided Safety M7 PT-IP Assessment and Plan Start: 09/19/23 14:30 Freq: NEEDED Status: Active Protocol: Document 09/25/23 09:59 TS (Rec: 09/25/23 10:10 [id number]) PT Summary Assessment and Plan Potential Rehabilitation Potential Fair Summary Impairments Balance,Transfers,Gait, Activity Tolerance Progress Towards Goals Slow Progress due to Activity Tolerance Assessment Summary Pt continues to be orthostatic and has SOB limiting his mobility. He ambulated ~20'SBA with FWW, quickly fatigues and requires sitting rest break to recover. He performed STS x4 with ~30secs in between standing to recover from fatigue. PT continues to recommend Home with assist and HHPT. Goals Transfer Goal Independent,Front Wheeled Walker Gait Goal Independent,Front Wheel Walker Gait Distance 200 feet Other Goals up/down 2 steps with rail and SBA Days to Meet Goals 5 Frequency of Treatment Frequency Of Treatment Once a Day Treatment Plan Physical Therapy Treatment Plan Transfer Training,Gait Training,Therapeutic Exercise, Balance Retraining,Discharge Planning,Neuromuscular Re-ed Other Recommendations and Next Treatment Ongoing orthostatic check Focus Precautions Other Precautions falls before admit, monitor respiratory status, Orthostatic Recommendations To Nursing Amount of Assist Needed Standby Assistance Discharge Recommendations PT Discharge Recommendations Home with Assistance,Home Health Other Discharge Recommendations has assist from Sister and MIRELLA that he lives with Transportation Needs at Discharge Private Vehicle
[2023-09-25] MEDS: BUDESONIDE 0.5 MG/2 ML NEB INH ×2 (11:37→19:29)
[2023-09-25] MEDS: ALBUTEROL/IPRATROPIUM 3 ML AMPUL INH ×2 (11:37→19:29)
--- NOTE | 2023-09-25 13:30 | P.PN_ITS ---
Subjective Subjective Date Patient Seen: 09/23/23 Interval history: Pt states cough is completely resolved. He has baseline severe GIBBS and can only walk about 15 ft, likely COPD related. He remains orthostatic, improved with midodrine but still symptomatic. He was noted to be in afib today with mild tachycardia again, Metoprolol increased to BID. Exam Vital Signs (past 8 hours): - 09/25/23 07:45 09/25/23 08:00 09/25/23 08:00 Temperature 98.2 F Pulse Rate 86 94 H Pulse Rate [Orthostatic Lying] 77 Pulse Rate [Orthostatic Sitting] 91 H Pulse Rate [Orthostatic Standing] 60 Respiratory Rate 22 Blood Pressure 133/86 Blood Pressure [Orthostatic Lying] 127/82 Blood Pressure [Orthostatic Sitting] 122/72 Blood Pressure [Orthostatic Standing] 94/54 L Pulse Oximetry 93 94 Oxygen Delivery Method Room Air Oxygen Flow Rate 0 09/25/23 08:15 09/25/23 11:38 09/25/23 12:00 Temperature 97.0 F L Pulse Rate 86 73 82 Pulse Rate [Orthostatic Lying] Pulse Rate [Orthostatic Sitting] Pulse Rate [Orthostatic Standing] Respiratory Rate 22 18 Blood Pressure 133/86 127/66 Blood Pressure [Orthostatic Lying] Blood Pressure [Orthostatic Sitting] Blood Pressure [Orthostatic Standing] Pulse Oximetry 96 98 Oxygen Delivery Method Room Air Oxygen Flow Rate 0 09/25/23 12:00 Temperature Pulse Rate Pulse Rate [Orthostatic Lying] 18 L Pulse Rate [Orthostatic Sitting] 86 Pulse Rate [Orthostatic Standing] 88 Respiratory Rate Blood Pressure Blood Pressure [Orthostatic Lying] 125/66 Blood Pressure [Orthostatic Sitting] 103/64 Blood Pressure [Orthostatic Standing] 70/47 L Pulse Oximetry Oxygen Delivery Method Oxygen Flow Rate Fraction of Inspired Oxygen 21 SaO2/FiO2 Ratio 466 Oxygen Delivery Method Room Air Oxygen Flow Rate 0 Narrative Exam Narrative: Gen: alert, NAD sitting in chair Lungs: breathing non-labored at rest, CTA CV: irregularly irregular Ext: no edema Neuro: nl speech, pleasant affect, no SI Objective Labs 09/23/23 10:00 09/23/23 10:00 [facility] Social History household members: family Smoking Status: Former smoker alcohol intake: current Assessment & Plan Assessment & Plan narrative: 1. Community-acquired pneumonia, present on admission and improving. 2. Sepsis with tachypnea, tachycardia, and lactic acidosis with a source of infection being pneumonia. Present on admission and resolved. 3. Acute kidney injury, present on admission and resolved. 4. Lactic acidosis, present on admission and resolved. 5. COPD with exacerbation, present on admission and improved. 6. DM 2, present on admission and active, controlled with A1c 5.3%. On insulin in hospital but can discharge on oral meds. 7. BPH, present on admission and active. 8. CAD, hx 3 v CABG 2004, present on admission and active. 9. Chronic constipation, active 10. Depression, present on admission and active. 11. Bladder mass was found incidentally on CT scan, present on admission and active. 12. UTI (Klebsiella), present on admmission and resolved. 13. Bacteremia, presumed contaminant, present on admission, resolved. 14. Orthostatic hypotension, dropping 30-50pts systolic when going from sitting to standing. Fluid bolus 500cc didn't improve. ECHO pending. 15. Atrial fibrillation with RVR, noted 09/22, active Plan: -started Eliquis 09/22 for afib -increase metoprolol to BID for RVR, hopeful improved control will improve orthostasis as well. -furosemide, lisinopril and metoprolol currently being held due to severe orthostatsis. Will continue 5 mg TID midodrine today. Will hold finasteride. Consider increase to 10 mg TID if remains orthostatic after rate control above. -d/c antibiotics, received azithro 09/17-09/20 and ceftriaxone 09/17-09/22 -d/c prednsone, received steroids on admit thru 09/22 -cont krishna MDI -started sertraline 25 mg daily on 09/18, he was agreeable to this for chronic depression -physical therapy evaluation and discharge plannin, rec HH services, pt lives with family and has good support -echo unremarkable. -miralax for chronic constipation OOB, DISPO: 1-2 days home NEEDS OUPT URO FU FOR BLADDER MASS ON CT. Quality VTE Deep Vein Thrombosis/Pulmonary Embolism Present on Admission: No
--- NOTE | 2023-09-25 14:03 | OT.IPNOTE ---
Attempted to see pt for OT services and pt states that he is having a tired day and would like to rest. Pt requests that OT return tomorrow. Will hold and continue to follow.
[2023-09-25] MEDS: SERTRALINE 50 MG TABLET 25 MG PO (21:02)
[2023-09-25] MEDS: ATORVASTATIN 20 MG TABLET 40 MG PO (21:02)
[2023-09-26] MEDS: PANTOPRAZOLE DR 20 MG TABLET 40 MG PO (06:03)
[2023-09-26] MEDS: MIDODRINE HCL 5 MG TABLET PO (06:03)
[2023-09-26 06:37] VITALS: BP 104/55; PULSE 75; RESP 16; TEMP 36.3; O2SAT 96
[2023-09-26] MEDS: CLOPIDOGREL 75 MG TABLET PO (08:59)
[2023-09-26] MEDS: APIXABAN 5 MG TABLET PO (08:59)
[2023-09-26] MEDS: allopurinoL 100 MG TABLET 300 MG PO (08:59)
[2023-09-26 09:00] VITALS: BP 108/53
[2023-09-26] MEDS: METOPROLOL ER 25 MG TABLET PO (09:00)
[2023-09-26] MEDS: INSULIN GLARGINE 100 UNIT/ML 3ML PEN 10 UNIT SUBCUT (09:00)
[2023-09-26] MEDS: polyethylene glycoL 3350 17 GM POWD.PACK PO (09:00)
[2023-09-26] MEDS: INSULIN LISPRO 100 UNIT/ML 3ML VIAL SUBCUT (09:01)
[2023-09-26] MEDS: SODIUM CHLORIDE 0.9% FLUSH 10 ML IV (09:02)
[2023-09-26 09:10] VITALS: BP 108/65; BP 125/65; BP 138/107; PULSE 100; PULSE 58; PULSE 96
[2023-09-26] MEDS: BUDESONIDE 0.5 MG/2 ML NEB INH (10:07)
[2023-09-26] MEDS: ALBUTEROL/IPRATROPIUM 3 ML AMPUL INH (10:07)
[2023-09-26 10:11] VITALS: PULSE 72; RESP 20; O2SAT 96
--- NOTE | 2023-09-26 10:58 | PT.IPTN ---
Current Diagnoses Sepsis, unspecified organism (09/18/23) Physical Therapy Treatment Note M2 PT-IP Current Condition Start: 09/19/23 14:30 Freq: NEEDED Status: Active Protocol: Document 09/19/23 16:33 DLM (Rec: 09/19/23 16:51 DLM [id number]) Physical Therapy Current Condition Current Condition Evaluation Date 09/19/23 Treatment Diagnosis Septic, PNA, UTI, falls, decreased mobility and gait Onset Date 09/18/23 M3 PT-IP Subjective Start: 09/19/23 14:30 Freq: NEEDED Status: Active Protocol: Document 09/26/23 12:03 TS (Rec: 09/26/23 12:14 TS [id number]) Subjective Physical Therapy Visit Type Type Treatment Note Visit Start Time 10:58 Visit Stop Time 11:22 Number of [employer] Visits 2 Physical Therapy Visit Comments Patient Comments pt found resting in bed, reports getting up twice this morning with some dizziness, is agreeable to PT. M4 PT-IP Mobility and Gait Start: 09/19/23 14:30 Freq: NEEDED Status: Active Protocol: Document 09/26/23 12:03 TS (Rec: 09/26/23 12:14 TS [id number]) PT-Bed Mobility Assessment Supine to Sit Supine to Sit Independent Sit to Supine Sit to Supine Independent Scooting Scooting to Edge of Bed Independent Scooting Up and Down in Bed Independent PT-Transfer Assessment Sit to and From Stand Sit to and from Stand Standby Assistance Equipment Transfer Assistive Device Gait Belt,Front Wheeled Walker Comments Mobility Comments Bp in supine 126/67. Supine to sit Ind with bed flat. BP in sitting 94/61. STS from bed with FWW SBA, BP in standing 84/49, pt with some dizziness and SOB, pt sat back EOB. After ~2mins rest pt agreed to try and ambulate in room. pt ambulated ~40'SBA with FWW, required sitting rest break after ~20' due to dizziness and most due to his SOB. Pt ambulated another lap in room and returned to bed. Pt was left in bed, nursing notified. Gait Assessment Gait Gait Assistance Required: Standby Assistance Distance (Feet) 40 Assistive Devices Assistive Device Gait Belt,Front Wheeled Walker Factors Limiting Gait Function Factors Limiting Gait Function Decreased Activity Tolerance, Pain,Poor Balance,Respiratory Distress Comments Gait Comments See mobility comments PT-Balance Assessment Sitting Balance and Reactions Static Sitting Balance Ability Good Dynamic Sitting Balance Ability Good Standing Balance and Reactions Static Standing Balance Ability Good Dynamic Standing Balance Ability Fair Device Used FWW M5 PT-IP Objective Assessments Start: 09/19/23 14:30 Freq: NEEDED Status: Active Protocol: Document 09/19/23 16:33 DLM (Rec: 09/19/23 16:51 DLM [id number]) Orientation Orientation/Cognition Level of Alertness Alert Orientation Name,Age,Birthday,Month,Date, Year,Day of Week,Place, Situation Language Function Ability No Deficits Noted Safety Awareness Understands Safety Issues Memory Description No Deficits Noted Gross Range of Motion Upper Extremity ROM Assessment Within Functional Limits Impairments shoulder flexion to 110 degrees bilaterally, no pain end range Lower Extremity ROM Assessment Within Functional Limits Strength Upper Extremity Strength Assessment Within Functional Limits Lower Extremity Strength Assessment Left Impaired Hip flex 4+/5 Knee extension 4-/5 with pain in knee Ankle DF 5/5 Coordination Assessment Gross Coordination Gross Coordination WNL Sensation Assessment Sensation Gross Sensation Right UE Impaired,Left UE Impaired,Right LE Impaired, Left LE Impaired Sensation Description Paresthesia,Numbness,Pain Comments Sensation Comments neuropathy in hands and feet, pt reports he can not feel his feet and he has pain from ankles to knees, he can not feel hot/cold on his feet, numbness in hand especially finger tips, pt reports he drops things easily Muscle Tone Muscle Tone WNL Yes M6 PT-IP Treatment Start: 09/19/23 14:30 Freq: NEEDED Status: Active Protocol: Document 09/26/23 12:03 TS (Rec: 09/26/23 12:14 [id number]) Physical Therapy Treatment Education Education Provided Safety M7 PT-IP Assessment and Plan Start: 09/19/23 14:30 Freq: NEEDED Status: Active Protocol: Document 09/26/23 12:03 TS (Rec: 09/26/23 12:14 [id number]) PT Summary Assessment and Plan Potential Rehabilitation Potential Fair Summary Impairments Balance,Transfers,Gait, Activity Tolerance Progress Towards Goals Slow Progress due to Medical Issues,Slow Progress due to Activity Tolerance Assessment Summary Sánchez is making some progress with is mobility but remains limited by ongoing medical issues and poor activity tolerance. He continues to be Ind for bed mobility from flat bed. He is SBA for STS and for gait. He ambulated ~40' in room this session with one rest break after ~20 due to SOB and some dizziness. He does continue to be orthostatic, symptoms did appear less severe this morning. PT is recommending pt return home with assist from family. Pt does not want to go to rehab and would like to return home where he has a supportive sister and MIRELLA who can assist him. Goals Transfer Goal Independent,Front Wheeled Walker Gait Goal Independent,Front Wheel Walker Gait Distance 200 feet Other Goals up/down 2 steps with rail and SBA Days to Meet Goals 5 Frequency of Treatment Frequency Of Treatment Once a Day Treatment Plan Physical Therapy Treatment Plan Transfer Training,Gait Training,Therapeutic Exercise, Balance Retraining,Discharge Planning,Neuromuscular Re-ed Other Recommendations and Next Treatment Ongoing orthostatic check Focus Precautions Other Precautions falls before admit, monitor respiratory status, Orthostatic Recommendations To Nursing Amount of Assist Needed Standby Assistance,1 Person Assist Discharge Recommendations PT Discharge Recommendations Home with Assistance,Home Health Other Discharge Recommendations has assist from Sister and MIRELLA that he lives with Transportation Needs at Discharge Private Vehicle
--- NOTE | 2023-09-26 11:14 | PM.DS.1 ---
History of Present Illness History of Present Illness Date Patient Seen: 09/26/23 Time Patient Seen: 11:14 Chief complaint: Weakness Narrative: The patient is a 72-year-old male who presented to the ER with dyspnea, cough, fever, and weakness. He has a history of diabetes 2, BPH, hypertension, and COPD. In the emergency department there was concern for pneumonia, and he was given IV antibiotics as well as IV fluids for mild hypotension. The patient did have a mild lactic acidosis. The patient has also mentioned multiple falls to the emergency physician. WBC was 10.3, creatinine 2.18, CO2 20, glucose 112. Urinalysis positive for blood and leukocytes. Troponin 0.047, 2nd lactic acid 1.1 compared to the 1st which was 3.3. Procalcitonin was 5.49. The chest x-ray revealed patchy left lung opacities. An abdomen pelvis CT revealed a 2.8 x 1.7 x 3.1 cm bladder mass. It also revealed a small pleural effusion on the left with pleural thickening and calcifications. He was given empiric antibiotics after blood cultures for probable pneumonia, ceftriaxone and azithromycin. He was also given methylprednisolone 125 mg IV for possible COPD. He has been ill for a couple of days with a cough and more short of breath with increased exertional dyspnea and wheezing. He has history of COPD and quit smoking many years ago. He has also had a lot of issues with his prostate and urinary difficulty but has had more progressive dysuria recently. He denies any fevers or chills but did become profoundly weak. [place] had more depression and spent more time in his room since that time. He is also become much more sedentary. He is DNR and notes that he has no will to live especially if he has not functional. He notes that he has been unable to walk the last several days. Discharge Providers Provider Date of admission: 09/18/23 15:53 Discharge Date: 09/26/23 Primary care physician: Doctor Vivian MD Consults: 09/18/23 17:10 Consult to Occupational Therapy Evaluate & Treat Comment: Physician Instructions: Evaluate and treat Consult to Physical Therapy Evaluate & Treat Comment: Physician Instructions: Evaluate and Treat 09/24/23 10:40 Consult to Home Health Routine Comment: Reason For Exam: RN/PT/OT Discharge provider: Shoaib Martinez DO Summary Hospital Course Discharge Diagnosis: 1. Community-acquired pneumonia, present on admission and improving. 2. Sepsis with tachypnea, tachycardia, and lactic acidosis with a source of infection being pneumonia. Present on admission and resolved. 3. Acute kidney injury, present on admission and resolved. 4. Lactic acidosis, present on admission and resolved. 5. COPD with exacerbation, present on admission and improved. 6. DM 2, present on admission and active, controlled with A1c 5.3%. On insulin in hospital but can discharge on oral meds. 7. BPH, present on admission and active. 8. CAD, hx 3 v CABG 2004, present on admission and active. 9. Chronic constipation, active 10. Depression, present on admission and active. 11. Bladder mass was found incidentally on CT scan, present on admission and active. 12. UTI (Klebsiella), present on admmission and resolved. 13. Bacteremia, presumed contaminant, present on admission, resolved. 14. Orthostatic hypotension, resolved 15. Atrial fibrillation with RVR, noted 09/22, RVR resolved Hospital Course: This is a 72 year old male with PMH of DM2, COPD, BPH, CAD, Depression admitted initially with sepsis with infectious etiologies found being both UTI and bacterial pneumonia. Patient was treated with ceftriaxone and azithromycin for 5 days during his admissino, and steroids for presumed COPD exacerbation. He was started on sertraline for chronic depression. He continued to have orthostasis after improvement in sepsis, requiring continued decrease in BP medications, and once metoprolol was held patient developed atrial fibrillation with RVR. His beta alisa needed to be restarted and ultimately rate did improve. He was started on anticoagulation with eliquis for elevated CHADS2-VASC score. He eventually needed midodrine for orthostasis, and after increase to 10 mg his RVR was controlled with beta alisa and orthostasis resolved. He was able to ambulate without dizziness on the day of discharge and was discharged home. On presentation he was found to have an incidental bladder mass on CT imaging, for which outpatient evaluation is recommended after discharge. Echocardiogram was unremarkable (done for continued orthostasis and atrial fibrillation). Time Spent with Patient Time spent: Greater than 30 minutes Exam Vital Signs (past 8 hours): - 09/26/23 06:37 09/26/23 09:00 09/26/23 09:10 Temperature 97.4 F L Pulse Rate 75 Pulse Rate [Orthostatic Lying] 96 H Pulse Rate [Orthostatic Sitting] 58 L Pulse Rate [Orthostatic Standing] 100 H Respiratory Rate 16 Blood Pressure 104/55 L 108/53 L Blood Pressure [Orthostatic Lying] 108/65 Blood Pressure [Orthostatic Sitting] 125/65 Blood Pressure [Orthostatic Standing] 138/107 H Pulse Oximetry 96 Oxygen Delivery Method Oxygen Flow Rate 0 09/26/23 10:11 Temperature Pulse Rate 72 Pulse Rate [Orthostatic Lying] Pulse Rate [Orthostatic Sitting] Pulse Rate [Orthostatic Standing] Respiratory Rate 20 Blood Pressure Blood Pressure [Orthostatic Lying] Blood Pressure [Orthostatic Sitting] Blood Pressure [Orthostatic Standing] Pulse Oximetry 96 Oxygen Delivery Method Room Air Oxygen Flow Rate Fraction of Inspired Oxygen 21 SaO2/FiO2 Ratio 466 Oxygen Delivery Method Room Air Oxygen Flow Rate 0 Narrative Exam Narrative: Gen: alert, NAD sitting in chair Lungs: breathing non-labored at rest, CTA CV: irregularly irregular Ext: no edema Neuro: nl speech, pleasant affect, no SI Objective Labs 09/23/23 10:00 09/23/23 10:00 [facility] Social History household members: family Smoking Status: Former smoker alcohol intake: current Discharge Plan Discharge Plan Patient Disposition: Home Provider Discharge Comment: You were admitted to the hospital with a pneumonia. You were fully treated for this but remained in the hospital for a while with BP that continued to fall when standing. This improved with home BP medications being stopped and an oral medicine to help keep BP up. You were also found to have atrial fibrillation. Continue blood thinner and medications as noted below. Recommend follow up with PCP as soon as possible and cardiology. Discharge orders & Medications Prescriptions: New apixaban 5 mg tablet 5 mg PO BID Qty: 60 0RF metoprolol succinate 25 mg Tablet Extended Release 24 Hr 25 mg PO BID 30 Days Qty: 60 0RF midodrine 10 mg tablet 10 mg PO TID 30 Days Qty: 90 0RF Rx Instructions: do not give last dose of day after 6PM or within 4 hrs of bedtime sertraline 25 mg tablet 25 mg PO BEDTIME Qty: 30 0RF Continued atorvastatin 40 mg tablet 40 mg PO BEDTIME metformin 850 mg tablet 850 mg PO BID clopidogrel 75 mg tablet 75 mg PO DAILY omeprazole 20 mg capsule,delayed release(DR/EC) 20 mg PO DAILY hydrocortisone 2.5 % cream 1 applic topical DAILY Rx Instructions: groin allopurinol 300 mg tablet 300 mg PO DAILY ketoconazole 2 % Cream 1 applic TOPICAL 2XW fluticasone propionate 50 mcg/actuation spray,suspension 2 spray intranasal DAILY clotrimazole 1 % cream 1 applic topical DAILY Rx Instructions: apply to groin and feet glipizide 5 mg tablet 5 mg PO BID tiotropium bromide [Spiriva with HandiHaler] 18 mcg capsule, w/inhalation device 18 mcg inhalation DAILY budesonide-formoterol [Symbicort] 160-4.5 mcg/actuation HFA aerosol inhaler 1 puff inhalation BID Discontinued furosemide 40 mg tablet 40 mg PO DAILY Rx Instructions: may take an additional 20mg if has edema metoprolol succinate 50 mg tablet extended release 24 hr 50 mg PO DAILY tamsulosin 0.4 mg capsule 0.4 mg PO DAILY lisinopril 2.5 mg tablet 2.5 mg PO DAILY finasteride 5 mg tablet 5 mg PO DAILY Follow up/Referrals: Vivian,MD John [Primary Care Provider] - Chau Dyson DO [Physician] - (Hospital follow up) Diet/Activity/Treatments Diet: Diet as Tolerated and Carb-consistent/Diabetic Activity: As tolerated, no retrictions. Use caution with getting up slowly. Visit Report/Discharge Packet Instructions: DI for Orthostatic Hypotension, DI for Pneumonia -- Adult, DI for Atrial Fibrillation, DI for Urinary Tract Infection (UTI), How to Prevent Falls, DI for Muscle Weakness, Metoprolol, Sertraline, Apixaban, Midodrine Stand Alone Forms: Patient Portal/API, Stroke Signs & Symptoms Discharge Data Primary Care Provider: Doctor Vivian Quality VTE Deep Vein Thrombosis/Pulmonary Embolism Present on Admission: No
[2023-09-26] MEDS: MIDODRINE HCL 5 MG TABLET 10 MG PO (12:10)
--- NOTE | 2023-09-26 12:35 | CM.DPNOTE ---
DC Note Discharge home today w/supportive family to assist, w/[facility]. Patient plans to establish with Dr Chau Dyson for his PCP. JULITA Montoya, has updated Dona with [facility] w/patient's discharge. No further needs identified from this CM team. JAYDEN
--- NOTE | 2023-09-26 12:39 | PC.NURSE ---
Pt is dressed and ready for discharge home with family. IV and Tele have been removed. Went over d/c instructions with Pt-discussed d/c meds, time of last dose, reviewed stroke education, reinforced MD instructions regarding Midodrine to take med no later than 6pm or 4 hours before bedtime, reminded Pt to get up slowly from laying or sitting to prevent orthostatic hypotension and rest as needed. Pt to follow u pwiht PCP as well as cardiology as scheduled. Encouraged Pt to drink plenty of fluids to prevent constipation or dehydration, pace himself, contact his PCP or come to the ER if he is having chest pain that does not resolve at rest and to follow up as directed. Pt denied further questions and will be taken out via w/c by [employer]PLET[employer] MANAGER to POV with Family and all belongings.
== END 2023-09-26 13:16 | disposition home health service (06) | DRG 871 ==
LOC: ED 12:58 → AC 15:54
PROVIDERS: Internal Medicine; Admitting Provider Hospitalist; Emergency Provider Emergency Medicine; Referring Provider Emergency Medicine; Visit Provider Hospitalist
DX: A41.9 Sepsis, unspecified organism (principal); J18.9 Pneumonia, unspecified organism; N17.9 Acute kidney failure, unspecified; E87.20 Acidosis, unspecified; N39.0 Urinary tract infection, site not specified; J44.1 Chronic obstructive pulmonary disease with (acute) exacerbation; F32.A Depression, unspecified; B96.1 Klebsiella pneumoniae [K. pneumoniae] as the cause of diseases classified elsewhere; I95.1 Orthostatic hypotension; I48.91 Unspecified atrial fibrillation; I25.10 Atherosclerotic heart disease of native coronary artery without angina pectoris; I10 Essential (primary) hypertension; E11.9 Type 2 diabetes mellitus without complications; N40.0 Benign prostatic hyperplasia without lower urinary tract symptoms; E86.0 Dehydration; K59.09 Other constipation; Z23 Encounter for immunization; Z66 Do not resuscitate; Z87.891 Personal history of nicotine dependence; Z79.84 Long term (current) use of oral hypoglycemic drugs; Z95.1 Presence of aortocoronary bypass graft
CPT/HCPCS: 36415; 71045; 74176; 80048; 80053; 80202; 81001; 82550; 82962; 83036; 83605; 83690; 83880; 84145; 84443; 84484; 85007; 85025; 85610; 85730; 87040; 87077; 87086; 87154; 87186; 87633; 90471; 90662; 93005; 93010; 94640; 94760; 96365; 96375; 97110; 97116; 97162; 97166; 97530; 97535; 99285; C8929; J0696; J1644; J1815; J2765; J2919; J7613; Q9957

== ENCOUNTER → 2023-10-19 14:09 | Outpatient (CLI) | payer MEDICARE, MEDICAID, SELFPAY ==
[2023-09-18 16:00] VITALS: BMI 34.7
--- NOTE | 2023-10-19 14:11 | DI.RAD.S_ITS ---
PROCEDURE: XR CHEST 2V INDICATIONS: CHF TECHNIQUE: 2 views of the chest were acquired. COMPARISON: [facility], CR, XR CHEST 1V, 09/22/2023, 12:13. [facility], CR, XR CHEST 1V, 09/18/2023, 12:11. FINDINGS: Surgical changes and devices: Sternotomy Lungs and pleura: Small left pleural effusion with left basilar atelectasis/consolidation, unchanged from prior. Mediastinum: Mediastinal contours are normal. Heart size is enlarged. Bones and chest wall: No suspicious bony abnormalities. Soft tissues appear unremarkable. IMPRESSION: Unchanged small left pleural effusion with left basilar atelectasis/consolidation. Dictated by: Antonino Jansen M.D. on 10/19/2023 at 16:03 Approved by: Antonino Jansen M.D. on 10/19/2023 at 16:04
[2023-10-19 15:23] LABS: Hemoglobin A1C% w Est Avg Glu 5.3 % (4.0-6.0)
[2023-10-19 15:28] LABS: Add Manual Diff / Slide Review NO; Basophils Absolute Auto 100 /uL (0-100); Basophils Percent Auto 0.7 % (0-2); Eosinophils Absolute Auto 400 /uL (0-450); Eosinophils Percent Auto 4.5 % (2-4); Hematocrit 33.2 % (41-53); Hemoglobin 10.2 g/dL (13.5-17.5); Lymphocytes Absolute Auto 1800 /uL (1100-4500); Mean Corpuscular HGB Conc 30.6 % (30-36); Mean Corpuscular Volume 78.2 fL (80-100); Monocytes Absolute Auto 700 /uL (0-900); Monocytes Percent Auto 7.9 % (3-14); Neutrophils Absolute Auto 5600 /uL (1500-7000); Neutrophils Percent Auto 65.9 % (50-75); Platelet Count 405 X10^3/uL (150-400); Red Blood Cell Count 4.25 X10^6/uL (4.5-5.9); Red Cell Distribution Width 19.5 % (11.6-14.8); White Blood Cell Count 8.5 X10^3/uL (4.5-11.0)
[2023-10-19 15:53] LABS: HEMOLYSIS < 15 (0-50); Iron 31 ug/dL (49-181)
[2023-10-19 15:55] LABS: Alanine Aminotransferase 11 IU/L (<50); Albumin 3.7 g/dL (3.5-5.0); Albumin Globulin Ratio 1.4 (1.0-2.8); Alkaline Phosphatase 112 U/L (38-126); Aspartate Aminotransferase 18 IU/L (17-59); BUN Creatinine Ratio 12.7 (6-22); Bilirubin Total 0.5 mg/dL (0.2-1.3); Blood Urea Nitrogen 14 mg/dL (9-20); Calcium 9.3 mg/dL (8.4-10.2); Carbon Dioxide 23 mmol/L (22-32); Chloride 107 mmol/L (98-107); Estimated Glomerular Filt Rate > 60 mL/min (>60); Globulin 2.7 g/dL (1.7-4.1); Glucose 60 mg/dL (80-110); HEMOLYSIS < 15 (0-50); Potassium 4.4 mmol/L (3.4-5.1); Sodium 139 mmol/L (137-145); Total Protein 6.4 g/dL (6.3-8.2)
[2023-10-19 16:00] LABS: NT-proBNP (BNP-Adult 18+) 3080 pg/mL (<125)
[2023-10-19 16:04] LABS: Percent Iron Saturation 8 % (20-50); Total Iron Binding Capacity 401 ug/dL (261-462); Transferrin 315 mg/dL (206-381)
[2023-10-19 16:41] LABS: Vitamin B12 324 pg/mL (239-931)
== END ==
LOC: LAB 14:11
PROVIDERS: PCP Family Medicine; Referring Provider Family Medicine; Visit Provider Family Medicine
DX: N17.9 Acute kidney failure, unspecified (principal); I50.9 Heart failure, unspecified; E11.9 Type 2 diabetes mellitus without complications; I25.10 Atherosclerotic heart disease of native coronary artery without angina pectoris; D64.9 Anemia, unspecified
CPT/HCPCS: 36415; 71046; 80053; 82607; 83036; 83540; 83550; 83880; 84443; 85025

== ENCOUNTER → 2023-11-23 14:45 | Outpatient (CLI) | payer MEDICARE, MEDICAID, SELFPAY ==
[2023-09-18 16:00] VITALS: BMI 34.7
--- NOTE | 2023-11-23 14:47 | DI.RAD.S_ITS ---
PROCEDURE: XR KNEE LT 3V INDICATIONS: L knee pain TECHNIQUE: 3 views of the knee were acquired. COMPARISON: None. FINDINGS: Bones: No fractures or dislocations. Moderate tricompartmental osteoarthritis is seen with significant joint space narrowing, subchondral sclerosis and marginal osteophyte formation. No suspicious bony lesions. Soft tissues: Moderate suprapatellar joint effusion. No suspicious soft tissue calcifications. IMPRESSION: No acute left knee fracture or dislocation. Moderate tricompartmental osteoarthritis and moderate suprapatellar joint effusion. Dictated by: Brijesh Hudson M.D. on 11/23/2023 at 15:57 Approved by: Brijesh Hudson M.D. on 11/23/2023 at 15:58
== END ==
PROVIDERS: PCP Family Medicine; Referring Provider Family Medicine; Visit Provider Family Medicine
DX: M17.12 Unilateral primary osteoarthritis, left knee (principal); M25.562 Pain in left knee; M25.462 Effusion, left knee
CPT/HCPCS: 73562

== ENCOUNTER → 2024-02-12 12:04 | Outpatient (CLI) | payer MEDICARE, MEDICAID, SELFPAY ==
[2023-09-18 16:00] VITALS: BMI 34.7
[2024-02-12 12:59] LABS: Hemoglobin A1C% w Est Avg Glu 4.8 % (4.0-6.0)
[2024-02-12 13:12] LABS: HEMOLYSIS < 15 (0-50); Iron 79 ug/dL (49-181)
[2024-02-12 13:19] LABS: Alanine Aminotransferase 12 IU/L (<50); Albumin 3.9 g/dL (3.5-5.0); Albumin Globulin Ratio 1.6 (1.0-2.8); Alkaline Phosphatase 96 U/L (38-126); Aspartate Aminotransferase 18 IU/L (17-59); BUN Creatinine Ratio 19.4 (6-22); Bilirubin Total 0.5 mg/dL (0.2-1.3); Blood Urea Nitrogen 21 mg/dL (9-20); Calcium 9.2 mg/dL (8.4-10.2); Carbon Dioxide 22 mmol/L (22-32); Chloride 108 mmol/L (98-107); Cholesterol 107 mg/dL (140-199); Estimated Glomerular Filt Rate > 60 mL/min (>60); Globulin 2.5 g/dL (1.7-4.1); Glucose 75 mg/dL (80-110); HDL Cholesterol 55 mg/dL (40-60); HEMOLYSIS < 15 (0-50); LDL Cholesterol Calculated 33 mg/dL (<100); Potassium 4.5 mmol/L (3.4-5.1); Sodium 138 mmol/L (137-145); Total Protein 6.4 g/dL (6.3-8.2); Triglycerides 95 mg/dL (35-150)
[2024-02-12 13:24] LABS: NT-proBNP (BNP-Adult 18+) 2170 pg/mL (<125)
[2024-02-12 14:09] LABS: Vitamin B12 238 pg/mL (239-931)
[2024-02-12 23:05] LABS: Transferrin 321 mg/dL (206-381)
[2024-02-12 23:29] LABS: Percent Iron Saturation 19 % (20-50); Total Iron Binding Capacity 427 ug/dL (261-462)
== END ==
PROVIDERS: PCP Family Medicine; Referring Provider Family Medicine; Visit Provider Family Medicine
DX: N17.9 Acute kidney failure, unspecified (principal); Z12.5 Encounter for screening for malignant neoplasm of prostate; D64.9 Anemia, unspecified
CPT/HCPCS: 36415; 80053; 80061; 82607; 83036; 83540; 83550; 83880; G0103

== ENCOUNTER → 2024-04-09 14:58 | Outpatient (CLI) | payer MEDICARE, MEDICAID, SELFPAY ==
[2023-09-18 16:00] VITALS: BMI 34.7
== END ==
PROVIDERS: PCP Family Medicine; Visit Provider Urology
DX: R39.9 Unspecified symptoms and signs involving the genitourinary system (principal)
CPT/HCPCS: 87077; 87086; 87147

== ENCOUNTER 2024-06-06 13:32 | Emergency (ER) | payer MEDICARE, MEDICAID, SELFPAY ==
[2023-09-18 16:00] VITALS: BMI 34.7
[2024-06-06] VITALS (50 sets, daily range): BP systolic 124–173; BP diastolic 54–80; PULSE 78–123; RESP 14–37; TEMP 36.6–37.1; O2SAT 93–99; BMI 35.9
[2024-06-06] MEDS: LIDOCAINE 2% (GLYDO) 6 ML GEL TOP ×2 (14:45→18:41)
--- NOTE | 2024-06-06 15:03 | PC.NURSE ---
Patient complained of urine retention and pressure and significant discomfort. The pt had a small meatus and a 16 fr robles was placed to relieve pressure. The MD was consulted and recommended a hematuria cath 3 way for CBI.
--- NOTE | 2024-06-06 15:19 | PC.NURSE ---
meatus size was small. 16 fr placed to temp relieve pressure.
[2024-06-06 15:28] LABS: Bacteria Urine Few (2-10); Culture Indicated Urine Specimen Cultured; RBC Urine >100/HPF (0-5/HPF); Squamous Epithelial Cell Urine 0-1 /HPF (0-5/HPF); Urine Volume 10mL (spun); WBC Urine 5-10/HPF (0-5/HPF)
--- NOTE | 2024-06-06 16:37 | PC.NURSE ---
Pt reports not being able to urinate since 1000. Pt reports urinating blood clots. Pt denies any trauma, surgeries, or new medications that might contribute to the possible urinary retention. Pt states the only and last time he had a catheter was during admission for pneumonia in September.
--- NOTE | 2024-06-06 16:59 | ED_ITS ---
HPI - Male Genitourinary <Gerald Silver MD - Last Filed: 06/08/24 11:06> General Chief complaint: Urogenital-Male Stated complaint: urinary problem Time Seen by Provider: 06/06/24 15:32 Source: patient Mode of arrival: Family Vehicle History of Present Illness HPI Narrative: 73-year-old male with history of gross hematuria intermittent for the last few months, followed by Dr. Amaya Urology, had cystoscopy at some point with diagnosis of bladder tumor, saw Dr. Amaya most recently last month for preoperative evaluation, to be scheduled for tumor excision surgery not yet performed. Over the last couple of days there seems to be increased bleeding again, and then inability be able to urinate through the day today. No fevers or chills. No flank pain. Some suprapubic area abdominal discomfort. He takes blood thinner medications including aspirin and Eliquis, still taking those medications. Related Data Home Medications Medication Instructions Recorded Confirmed hydrocortisone 2.5 % topical cream 1 applic topical DAILY 09/18/23 04/25/24 Previous Rx's Medication Instructions Recorded albuterol sulfate 90 mcg/actuation 2 puff inhalation Q6H PRN 10/27/23 aerosol inhaler (Ventolin HFA) bronchospasm #6.7 grams allopurinol 300 mg tablet 300 mg PO DAILY #90 tabs 10/27/23 atorvastatin 40 mg tablet 40 mg PO BEDTIME #90 tabs 10/27/23 budesonide-formoterol HFA 160 1 puff inhalation BID #10.2 grams 10/27/23 mcg-4.5 mcg/actuation aerosol inhaler (Symbicort) clopidogrel 75 mg tablet 75 mg PO DAILY #90 tabs 10/27/23 clotrimazole 1 % topical cream 1 applic topical DAILY #30 grams 10/27/23 metformin 850 mg tablet 850 mg PO BID #180 tabs 10/27/23 metoprolol succinate 25 mg 25 mg PO BID #180 tabs 10/27/23 tablet,extended release 24 hr omeprazole 20 mg capsule,delayed 20 mg PO DAILY #90 caps 10/27/23 release sertraline 25 mg tablet 25 mg PO BEDTIME #90 tabs 10/27/23 tiotropium bromide 18 mcg capsule 18 mcg inhalation DAILY #90 10/27/23 with inhalation device (Spiriva inhalations with HandiHaler) blood sugar diagnostic (Blood #50 ea 11/23/23 Glucose Test strips) blood-glucose meter #1 ea 11/23/23 ferrous gluconate 324 mg (38 mg 324 mg PO DAILY #90 tabs 11/23/23 iron) tablet glipizide 2.5 mg tablet 2.5 mg PO BID #180 tabs 11/23/23 lancets #100 ea 11/23/23 ketoconazole 2 % topical cream 1 applic topical 2XW #30 grams 02/13/24 cyanocobalamin (vitamin B-12) 1,000 mcg IM QMONTH #3 mL 02/15/24 1,000 mcg/mL injection solution fluticasone propionate 50 2 spray intranasal DAILY #16 grams 04/03/24 mcg/actuation nasal spray,suspension ciprofloxacin HCl 500 mg tablet 500 mg PO BID #30 tabs 04/11/24 Allergies Allergy/AdvReac Type Severity Reaction Status Date / Time No Known Drug Allergies Allergy Verified 06/06/24 13:47 Review of Systems <Greald Silver MD - Last Filed: 06/08/24 11:06> Review of Systems Narrative: See HPI Patient History <Gerald Silver MD - Last Filed: 06/08/24 11:06> Medical History Left knee pain B12 deficiency anemia History of tobacco use Microscopic hematuria Chronic anticoagulation History of gross hematuria Benign prostatic hyperplasia with lower urinary tract symptoms COPD (chronic obstructive pulmonary disease) Bradycardia Hypertension Type 2 diabetes mellitus Bladder mass Congestive heart failure Surgical History History of coronary artery bypass graft Anesthesia History of open heart surgery (~2004) Social History household members: family Smoking Status: Former smoker alcohol intake: current Smoking Status: Former smoker tobacco type: cigarettes alcohol intake frequency: a few times a month Substance Use Type: marijuana Exam <Gerald Silver MD - Last Filed: 06/08/24 11:06> Narrative Exam Narrative: GENERAL: Well-developed patient, in mild distress. HEAD: Atraumatic. Normocephalic. EYES: Pupils equal round and reactive. Extraocular motions intact. No scleral icterus. No injection or drainage. ENT: Nose without bleeding, purulent drainage. Throat without erythema, tonsillar hypertrophy or exudate. Airway patent. NECK: Trachea midline. Non tender CARDIOVASCULAR: Regular rate and rhythm without murmurs, gallops, or rubs. RESPIRATORY: Clear to auscultation. Breath sounds equal bilaterally. No wheezes, rales, or rhonchi. GASTROINTESTINAL: Abdomen soft, non-tender, nondistended. Obese. : Snell catheter placed on arrival after bladder scan showed 1000 cc, burgundy color in collection bag and in Snell tubing. No clots obvious in tubing or collection bag EXTREMITIES: No edema or joint tenderness. BACK: Nontender without deformity or crepitance. No flank tenderness. NEURO: AOx3. Motor functions grossly nonfocal SKIN: No rash or erythema of visible areas Initial Vital Signs Initial Vital Signs: Vital Signs Temperature 97.9 F 06/06/24 13:34 Pulse Rate 90 06/06/24 13:34 Respiratory Rate 22 06/06/24 13:34 Blood Pressure 124/57 L 06/06/24 13:34 Pulse Oximetry 99 06/06/24 13:34 Oxygen Delivery Method Room Air 06/06/24 13:34 <Ashok Vasquez DO - Last Filed: 06/07/24 17:51> Initial Vital Signs Initial Vital Signs: Vital Signs Temperature 97.9 F 06/06/24 13:34 Pulse Rate 90 06/06/24 13:34 Respiratory Rate 22 06/06/24 13:34 Blood Pressure 124/57 L 06/06/24 13:34 Pulse Oximetry 99 06/06/24 13:34 Oxygen Delivery Method Room Air 06/06/24 13:34 Course <Gerald Silver MD - Last Filed: 06/08/24 11:06> Orders Ordered: Discontinued Medications Hydrocodone Bitart/Acetaminophen (Hydrocodone/Acet 5/325 Prepack) 1 bottle MISC DIRECTED ONE Stop: 06/07/24 00:17 Hydrocodone Bitart/Acetaminophen (Hydrocodone/Acet 5/325 Tablet) 1 tab PO NOW ONE Stop: 06/07/24 01:28 Last Admin: 06/07/24 01:33 Dose: 1 tab Documented By: ANKUR Hydromorphone HCl (Hydromorphone 0.5 Mg Inj) 0.5 mg IV NOW ONE Stop: 06/06/24 18:41 Last Admin: 06/06/24 18:49 Dose: 0.5 mg Documented By: ASHLIE Hydromorphone HCl (Hydromorphone 0.5 Mg Inj) 0.5 mg IV NOW ONE Stop: 06/07/24 08:31 Last Admin: 06/07/24 08:37 Dose: 0.5 mg Documented By: ANNA Lidocaine HCl (Lidocaine 2% (Glydo) 6 Ml Gel) 6 ml TOP NOW ONE Stop: 06/06/24 14:43 Last Admin: 06/06/24 14:45 Dose: 6 ml Documented By: EREN Lidocaine HCl (Lidocaine 2% (Glydo) 6 Ml Gel) 6 ml TOP NOW ONE Stop: 06/06/24 17:47 Last Admin: 06/06/24 18:41 Dose: 6 ml Documented By: EREN Ondansetron HCl (Ondansetron 4 Mg/2 Ml Inj) 4 mg IV NOW ONE Stop: 06/06/24 18:54 Last Admin: 06/06/24 19:02 Dose: Not Given Documented By: ASHLIE Ondansetron HCl (Ondansetron 4 Mg Odt Prepack) 1 bottle MISC DIRECTED ONE Stop: 06/07/24 00:17 Ondansetron HCl (Ondansetron 4 Mg/2 Ml Inj) 4 mg IV NOW ONE Stop: 06/07/24 08:31 Last Admin: 06/07/24 08:36 Dose: 4 mg Documented By: ANNA Tamsulosin HCl (Tamsulosin 0.4 Mg Capsule) 0.4 mg PO NOW ONE Stop: 06/07/24 00:17 Vital Signs Vital signs: Vital Signs - 8 hr 06/07/24 00:00 06/07/24 00:00 06/07/24 00:15 Pulse Rate 90 88 Respiratory Rate 17 17 Blood Pressure 139/56 L Pulse Oximetry 95 95 Oxygen Delivery Method 06/07/24 00:15 06/07/24 00:30 06/07/24 00:30 Pulse Rate 89 Respiratory Rate 19 Blood Pressure 133/64 145/67 H Pulse Oximetry 96 Oxygen Delivery Method 06/07/24 00:45 06/07/24 00:45 06/07/24 01:00 Pulse Rate 86 85 Respiratory Rate 18 18 Blood Pressure 142/65 H Pulse Oximetry 96 97 Oxygen Delivery Method Room Air 06/07/24 01:00 06/07/24 01:15 06/07/24 01:15 Pulse Rate 87 Respiratory Rate 17 Blood Pressure 142/67 H 140/64 Pulse Oximetry 98 Oxygen Delivery Method 06/07/24 01:30 06/07/24 01:30 06/07/24 02:33 Pulse Rate 91 H 91 H Respiratory Rate 21 Blood Pressure 177/77 H Pulse Oximetry 98 97 Oxygen Delivery Method 06/07/24 02:34 06/07/24 02:34 06/07/24 02:45 Pulse Rate 91 H 90 Respiratory Rate 17 15 Blood Pressure 149/63 H Pulse Oximetry 96 93 Oxygen Delivery Method Room Air 06/07/24 02:45 06/07/24 03:00 06/07/24 03:00 Pulse Rate 90 Respiratory Rate 15 Blood Pressure 141/64 H 136/63 Pulse Oximetry 96 Oxygen Delivery Method 06/07/24 03:15 06/07/24 03:15 06/07/24 03:30 Pulse Rate 91 H Respiratory Rate 16 Blood Pressure 143/63 H 151/69 H Pulse Oximetry 95 Oxygen Delivery Method Room Air 06/07/24 03:30 06/07/24 03:45 06/07/24 03:45 Pulse Rate 90 87 Respiratory Rate 18 16 Blood Pressure 137/56 L Pulse Oximetry 96 95 Oxygen Delivery Method 06/07/24 04:00 06/07/24 04:00 06/07/24 04:15 Pulse Rate 87 Respiratory Rate 15 Blood Pressure 136/62 140/65 Pulse Oximetry 96 Oxygen Delivery Method 06/07/24 04:15 06/07/24 04:30 06/07/24 04:30 Pulse Rate 87 86 Respiratory Rate 16 15 Blood Pressure 142/65 H Pulse Oximetry 96 96 Oxygen Delivery Method 06/07/24 04:45 06/07/24 04:45 06/07/24 05:00 Pulse Rate 88 Respiratory Rate 21 Blood Pressure 128/57 L 142/66 H Pulse Oximetry 96 Oxygen Delivery Method 06/07/24 05:00 06/07/24 05:15 06/07/24 05:15 Pulse Rate 84 85 Respiratory Rate 16 15 Blood Pressure 138/65 Pulse Oximetry 97 96 Oxygen Delivery Method 06/07/24 05:30 06/07/24 05:30 06/07/24 05:45 Pulse Rate 86 Respiratory Rate 15 Blood Pressure 134/60 138/67 Pulse Oximetry 95 Oxygen Delivery Method Room Air 06/07/24 05:45 06/07/24 07:00 06/07/24 07:00 Pulse Rate 81 82 Respiratory Rate 18 16 Blood Pressure 157/71 H Pulse Oximetry 97 97 Oxygen Delivery Method Room Air 06/07/24 07:05 06/07/24 07:10 06/07/24 07:15 Pulse Rate 83 84 Respiratory Rate 20 15 Blood Pressure 150/70 H Pulse Oximetry 97 97 Oxygen Delivery Method 06/07/24 07:15 06/07/24 07:20 06/07/24 07:25 Pulse Rate 80 83 80 Respiratory Rate 19 17 14 Blood Pressure Pulse Oximetry 95 98 95 Oxygen Delivery Method 06/07/24 07:30 06/07/24 07:30 06/07/24 07:35 Pulse Rate 79 80 Respiratory Rate 16 15 Blood Pressure 135/65 Pulse Oximetry 95 97 Oxygen Delivery Method 06/07/24 07:40 Pulse Rate 82 Respiratory Rate 14 Blood Pressure Pulse Oximetry 97 Oxygen Delivery Method <Ashok Vasquez DO - Last Filed: 06/07/24 17:51> Orders Ordered: Discontinued Medications Hydrocodone Bitart/Acetaminophen (Hydrocodone/Acet 5/325 Prepack) 1 bottle MISC DIRECTED ONE Stop: 06/07/24 00:17 Hydrocodone Bitart/Acetaminophen (Hydrocodone/Acet 5/325 Tablet) 1 tab PO NOW ONE Stop: 06/07/24 01:28 Last Admin: 06/07/24 01:33 Dose: 1 tab Documented By: LS Hydromorphone HCl (Hydromorphone 0.5 Mg Inj) 0.5 mg IV NOW ONE Stop: 06/06/24 18:41 Last Admin: 06/06/24 18:49 Dose: 0.5 mg Documented By: RLS Hydromorphone HCl (Hydromorphone 0.5 Mg Inj) 0.5 mg IV NOW ONE Stop: 06/07/24 08:31 Last Admin: 06/07/24 08:37 Dose: 0.5 mg Documented By: ANNA Lidocaine HCl (Lidocaine 2% (Glydo) 6 Ml Gel) 6 ml TOP NOW ONE Stop: 06/06/24 14:43 Last Admin: 06/06/24 14:45 Dose: 6 ml Documented By: EREN Lidocaine HCl (Lidocaine 2% (Glydo) 6 Ml Gel) 6 ml TOP NOW ONE Stop: 06/06/24 17:47 Last Admin: 06/06/24 18:41 Dose: 6 ml Documented By: EREN Ondansetron HCl (Ondansetron 4 Mg/2 Ml Inj) 4 mg IV NOW ONE Stop: 06/06/24 18:54 Last Admin: 06/06/24 19:02 Dose: Not Given Documented By: ASHLIE Ondansetron HCl (Ondansetron 4 Mg Odt Prepack) 1 bottle MISC DIRECTED ONE Stop: 06/07/24 00:17 Ondansetron HCl (Ondansetron 4 Mg/2 Ml Inj) 4 mg IV NOW ONE Stop: 06/07/24 08:31 Last Admin: 06/07/24 08:36 Dose: 4 mg Documented By: ANNA Tamsulosin HCl (Tamsulosin 0.4 Mg Capsule) 0.4 mg PO NOW ONE Stop: 06/07/24 00:17 Vital Signs Vital signs: Vital Signs - 8 hr 06/07/24 00:00 06/07/24 00:00 06/07/24 00:15 Pulse Rate 90 88 Respiratory Rate 17 17 Blood Pressure 139/56 L Pulse Oximetry 95 95 Oxygen Delivery Method 06/07/24 00:15 06/07/24 00:30 06/07/24 00:30 Pulse Rate 89 Respiratory Rate 19 Blood Pressure 133/64 145/67 H Pulse Oximetry 96 Oxygen Delivery Method 06/07/24 00:45 06/07/24 00:45 06/07/24 01:00 Pulse Rate 86 85 Respiratory Rate 18 18 Blood Pressure 142/65 H Pulse Oximetry 96 97 Oxygen Delivery Method Room Air 06/07/24 01:00 06/07/24 01:15 06/07/24 01:15 Pulse Rate 87 Respiratory Rate 17 Blood Pressure 142/67 H 140/64 Pulse Oximetry 98 Oxygen Delivery Method 06/07/24 01:30 06/07/24 01:30 06/07/24 02:33 Pulse Rate 91 H 91 H Respiratory Rate 21 Blood Pressure 177/77 H Pulse Oximetry 98 97 Oxygen Delivery Method 06/07/24 02:34 06/07/24 02:34 06/07/24 02:45 Pulse Rate 91 H 90 Respiratory Rate 17 15 Blood Pressure 149/63 H Pulse Oximetry 96 93 Oxygen Delivery Method Room Air 06/07/24 02:45 06/07/24 03:00 06/07/24 03:00 Pulse Rate 90 Respiratory Rate 15 Blood Pressure 141/64 H 136/63 Pulse Oximetry 96 Oxygen Delivery Method 06/07/24 03:15 06/07/24 03:15 06/07/24 03:30 Pulse Rate 91 H Respiratory Rate 16 Blood Pressure 143/63 H 151/69 H Pulse Oximetry 95 Oxygen Delivery Method Room Air 06/07/24 03:30 06/07/24 03:45 06/07/24 03:45 Pulse Rate 90 87 Respiratory Rate 18 16 Blood Pressure 137/56 L Pulse Oximetry 96 95 Oxygen Delivery Method 06/07/24 04:00 06/07/24 04:00 06/07/24 04:15 Pulse Rate 87 Respiratory Rate 15 Blood Pressure 136/62 140/65 Pulse Oximetry 96 Oxygen Delivery Method 06/07/24 04:15 06/07/24 04:30 06/07/24 04:30 Pulse Rate 87 86 Respiratory Rate 16 15 Blood Pressure 142/65 H Pulse Oximetry 96 96 Oxygen Delivery Method 06/07/24 04:45 06/07/24 04:45 06/07/24 05:00 Pulse Rate 88 Respiratory Rate 21 Blood Pressure 128/57 L 142/66 H Pulse Oximetry 96 Oxygen Delivery Method 06/07/24 05:00 06/07/24 05:15 06/07/24 05:15 Pulse Rate 84 85 Respiratory Rate 16 15 Blood Pressure 138/65 Pulse Oximetry 97 96 Oxygen Delivery Method 06/07/24 05:30 06/07/24 05:30 06/07/24 05:45 Pulse Rate 86 Respiratory Rate 15 Blood Pressure 134/60 138/67 Pulse Oximetry 95 Oxygen Delivery Method Room Air 06/07/24 05:45 06/07/24 07:00 06/07/24 07:00 Pulse Rate 81 82 Respiratory Rate 18 16 Blood Pressure 157/71 H Pulse Oximetry 97 97 Oxygen Delivery Method Room Air 06/07/24 07:05 06/07/24 07:10 06/07/24 07:15 Pulse Rate 83 84 Respiratory Rate 20 15 Blood Pressure 150/70 H Pulse Oximetry 97 97 Oxygen Delivery Method 06/07/24 07:15 06/07/24 07:20 06/07/24 07:25 Pulse Rate 80 83 80 Respiratory Rate 19 17 14 Blood Pressure Pulse Oximetry 95 98 95 Oxygen Delivery Method 06/07/24 07:30 06/07/24 07:30 06/07/24 07:35 Pulse Rate 79 80 Respiratory Rate 16 15 Blood Pressure 135/65 Pulse Oximetry 95 97 Oxygen Delivery Method 06/07/24 07:40 Pulse Rate 82 Respiratory Rate 14 Blood Pressure Pulse Oximetry 97 Oxygen Delivery Method MDM - Male Genitourinary <Gerald Silver MD - Last Filed: 06/08/24 11:06> Lab Data Attestation: I reviewed the patient's lab results. Lab results narrative: Hb 5 low compared to 10 in 10/202306/07/24 07:35 06/07/24 03:27 Labs: Lab Results 06/06/24 06/06/24 06/06/24 Range/Units 13:15 17:59 18:42 WBC 7.7 (4.5-11.0) X10^3/uL RBC 2.90 L (4.5-5.9) X10^6/uL Hgb 5.0 L* (13.5-17.5) g/dL Hct 18.4 L* (41-53) % MCV 63.5 L (80-100) fL MCH 17.3 L (26-34) PG MCHC 27.2 L (30-36) % RDW 19.6 H (11.6-14.8) % Plt Count 342 (150-400) X10^3/uL Neut % (Auto) 67.8 (50-75) % Lymph % (Auto) 21.7 L (25-40) % [place] % (Auto) 6.6 (3-14) % Eos % (Auto) 2.8 (2-4) % Baso % (Auto) 1.1 (0-2) % Neut # (Auto) 5200 (2290-2602) /uL Lymph # (Auto) 1700 (6908-8195) /uL [place] # (Auto) 500 (0-900) /uL Eos # (Auto) 200 (0-450) /uL Baso # (Auto) 100 (0-100) /uL Platelet Estimate Adequate on smear RBC Morphology See below Hypochromasia 2+ H Anisocytosis 2+ H Microcytosis 3+ H Ovalocytes 1+ H PT 14.6 H (9.4-12.5) SECONDS INR 1.3 (0.9-1.3) Sodium 136 L (137-145) mmol/L Potassium 4.4 (3.4-5.1) mmol/L Chloride 105 (98-107) mmol/L Carbon Dioxide 26 (22-32) mmol/L BUN 16 (9-20) mg/dL Creatinine 1.07 (0.66-1.25) mg/dL Estimated GFR > 60 (>60) mL/min BUN/Creatinine Ratio 15.0 (6-22) Glucose 116 H (80-110) mg/dL Calcium 8.9 (8.4-10.2) mg/dL Total Bilirubin 0.5 (0.2-1.3) mg/dL AST 18 (17-59) IU/L ALT 10 (<50) IU/L Alkaline Phosphatase 90 (38-126) U/L Total Protein 6.3 (6.3-8.2) g/dL Albumin 3.5 (3.5-5.0) g/dL Globulin 2.8 (1.7-4.1) g/dL Albumin/Globulin Ratio 1.3 (1.0-2.8) Urine RBC >100/hpf H (0-5/HPF) Urine WBC 5-10/hpf H (0-5/HPF) Ur Squamous Epith Cells 0-1 /hpf (0-5/HPF) Urine Bacteria Few (2-10) H (None) Ur Culture Indicated? Specimen cultured Vol Urine Centrifuged 10ml (spun) Blood Type O Positive Antibody Screen Negative Crossmatch See Detail 06/06/24 06/07/24 06/07/24 Range/Units 22:00 01:02 03:27 WBC 10.2 (4.5-11.0) X10^3/uL RBC 3.29 L (4.5-5.9) X10^6/uL Hgb 5.8 L* 6.9 L* 6.7 L* (13.5-17.5) g/dL Hct 20.2 L* 23.7 L 22.5 L (41-53) % MCV 68.6 L D (80-100) fL MCH 20.5 L (26-34) PG MCHC 29.9 L (30-36) % RDW 23.6 H (11.6-14.8) % Plt Count 311 (150-400) X10^3/uL Neut % (Auto) 76.9 H (50-75) % Lymph % (Auto) 12.8 L (25-40) % [place] % (Auto) 7.6 (3-14) % Eos % (Auto) 2.3 (2-4) % Baso % (Auto) 0.4 (0-2) % Neut # (Auto) 7800 H (8636-9731) /uL Lymph # (Auto) 1300 (8445-2338) /uL [place] # (Auto) 800 (0-900) /uL Eos # (Auto) 200 (0-450) /uL Baso # (Auto) 0 (0-100) /uL Platelet Estimate Adequate on smear RBC Morphology See below Hypochromasia 3+ H Anisocytosis 2+ H Microcytosis 3+ H Ovalocytes PT (9.4-12.5) SECONDS INR (0.9-1.3) Sodium 136 L (137-145) mmol/L Potassium 4.4 (3.4-5.1) mmol/L Chloride 107 (98-107) mmol/L Carbon Dioxide 24 (22-32) mmol/L BUN 16 (9-20) mg/dL Creatinine 0.99 (0.66-1.25) mg/dL Estimated GFR > 60 (>60) mL/min BUN/Creatinine Ratio 16.2 (6-22) Glucose 130 H (80-110) mg/dL Calcium 8.7 (8.4-10.2) mg/dL Total Bilirubin (0.2-1.3) mg/dL AST (17-59) IU/L ALT (<50) IU/L Alkaline Phosphatase (38-126) U/L Total Protein (6.3-8.2) g/dL Albumin (3.5-5.0) g/dL Globulin (1.7-4.1) g/dL Albumin/Globulin Ratio (1.0-2.8) Urine RBC (0-5/HPF) Urine WBC (0-5/HPF) Ur Squamous Epith Cells (0-5/HPF) Urine Bacteria (None) Ur Culture Indicated? Vol Urine Centrifuged Blood Type Antibody Screen Crossmatch 06/07/24 Range/Units 07:35 WBC (4.5-11.0) X10^3/uL RBC (4.5-5.9) X10^6/uL Hgb 7.0 L (13.5-17.5) g/dL Hct 23.2 L (41-53) % MCV (80-100) fL MCH (26-34) PG MCHC (30-36) % RDW (11.6-14.8) % Plt Count (150-400) X10^3/uL Neut % (Auto) (50-75) % Lymph % (Auto) (25-40) % [place] % (Auto) (3-14) % Eos % (Auto) (2-4) % Baso % (Auto) (0-2) % Neut # (Auto) (2385-2538) /uL Lymph # (Auto) (0518-0434) /uL [place] # (Auto) (0-900) /uL Eos # (Auto) (0-450) /uL Baso # (Auto) (0-100) /uL Platelet Estimate RBC Morphology Hypochromasia Anisocytosis Microcytosis Ovalocytes PT (9.4-12.5) SECONDS INR (0.9-1.3) Sodium (137-145) mmol/L Potassium (3.4-5.1) mmol/L Chloride (98-107) mmol/L Carbon Dioxide (22-32) mmol/L BUN (9-20) mg/dL Creatinine (0.66-1.25) mg/dL Estimated GFR (>60) mL/min BUN/Creatinine Ratio (6-22) Glucose (80-110) mg/dL Calcium (8.4-10.2) mg/dL Total Bilirubin (0.2-1.3) mg/dL AST (17-59) IU/L ALT (<50) IU/L Alkaline Phosphatase (38-126) U/L Total Protein (6.3-8.2) g/dL Albumin (3.5-5.0) g/dL Globulin (1.7-4.1) g/dL Albumin/Globulin Ratio (1.0-2.8) Urine RBC (0-5/HPF) Urine WBC (0-5/HPF) Ur Squamous Epith Cells (0-5/HPF) Urine Bacteria (None) Ur Culture Indicated? Vol Urine Centrifuged Blood Type Antibody Screen Crossmatch MDM Narrative Medical decision making narrative: 73-year-old male with history of bladder tumor, intermittent gross hematuria, awaiting bladder tumor excision surgery with local urologist Dr. Amaya, now with gross hematuria symptoms again, and inability to urinate through the day today. Screening bladder scan 1000 PVR noted, urinalysis pending. Labs pending. Snell catheter placed with dark red blood. We will switch to CBI urinary catheter. Hemoglobin today 5.0, compared to October 2023 was 10.2 at that time. Platelets adequate today and prior. White blood cell count normal today and prior. Platelet count normal. INR 1.3 noted. Will type and screen, transfuse one unit packed red blood cells. CBI catheter successfully placed, we will irrigate until clear. PRBC transfusion to be initiated soon. Signed out to oncoming ED shift physician Dr. Pedro vasquez: Received turned over. Review patient's history and physical exam. Patient has received 1 unit of packed red blood cells. Repeat H&H shows only mild improvement of both hemoglobin and hematocrit. He received a 2nd unit of packed red blood cell. A repeat H&H after this shows improvement however hemoglobin still less than 7 and hematocrit less than 24. To repeat shows relatively unchanged. Vital signs have been unremarkable. He was not been hypotensive. Not been tachycardic. No signs of fluid overload. He was had multiple episodes of lower abdominal pain and potentially feeling like he was retaining urine again. His Snell catheter is draining. The urine draining from his Snell catheter has started become darker and more bloody. Continuous bladder irrigation restarted. There were clots present. Given the patient's persistent anemia and what appears to be persistent bleeding patient was going to require admission to the hospital and Urology consultation. Unfortunately I do not have Urology available at this facility over the weekend. I discussed the case with Dr. Singh on-call for Urology at the [facility] who accepts the patient for transfer. I did discuss this with the patient. Patient was stable for transport. Awaiting bed assignment care turned over to day provider to continue to observe until disposition. 06/07/2024, 0700 Silver. Sign-out from Dr. Vasquez. Interval history overnight, repeat hemoglobin after initial unit transfusion drifted from 6.9- >6.7, second unit has been infused. We will repeat hemoglobin now, and again at 11:00 a.m. if still here. Patient has been accepted for transfer at [facility], Urology Dr. Singh. Keep NPO, CBI still in progress. Reassumed care Repeat hemoglobin 7.0, we will repeat at 11:00 a.m. as well to see if it drops back down, might need further transfusion, pending transfer, currently there is no bright red blood in tubing with CBI in progress. 0830, Patient bed available, transferred as planned <Ashok Vasquez, - Last Filed: 06/07/24 17:51> Lab Data Labs: Lab Results 06/06/24 06/06/24 06/06/24 Range/Units 13:15 17:59 18:42 WBC 7.7 (4.5-11.0) X10^3/uL RBC 2.90 L (4.5-5.9) X10^6/uL Hgb 5.0 L* (13.5-17.5) g/dL Hct 18.4 L* (41-53) % MCV 63.5 L (80-100) fL MCH 17.3 L (26-34) PG MCHC 27.2 L (30-36) % RDW 19.6 H (11.6-14.8) % Plt Count 342 (150-400) X10^3/uL Neut % (Auto) 67.8 (50-75) % Lymph % (Auto) 21.7 L (25-40) % [place] % (Auto) 6.6 (3-14) % Eos % (Auto) 2.8 (2-4) % Baso % (Auto) 1.1 (0-2) % Neut # (Auto) 5200 (4578-0463) /uL Lymph # (Auto) 1700 (4962-7889) /uL [place] # (Auto) 500 (0-900) /uL Eos # (Auto) 200 (0-450) /uL Baso # (Auto) 100 (0-100) /uL Platelet Estimate Adequate on smear RBC Morphology See below Hypochromasia 2+ H Anisocytosis 2+ H Microcytosis 3+ H Ovalocytes 1+ H PT 14.6 H (9.4-12.5) SECONDS INR 1.3 (0.9-1.3) Sodium 136 L (137-145) mmol/L Potassium 4.4 (3.4-5.1) mmol/L Chloride 105 (98-107) mmol/L Carbon Dioxide 26 (22-32) mmol/L BUN 16 (9-20) mg/dL Creatinine 1.07 (0.66-1.25) mg/dL Estimated GFR > 60 (>60) mL/min BUN/Creatinine Ratio 15.0 (6-22) Glucose 116 H (80-110) mg/dL Calcium 8.9 (8.4-10.2) mg/dL Total Bilirubin 0.5 (0.2-1.3) mg/dL AST 18 (17-59) IU/L ALT 10 (<50) IU/L Alkaline Phosphatase 90 (38-126) U/L Total Protein 6.3 (6.3-8.2) g/dL Albumin 3.5 (3.5-5.0) g/dL Globulin 2.8 (1.7-4.1) g/dL Albumin/Globulin Ratio 1.3 (1.0-2.8) Urine RBC >100/hpf H (0-5/HPF) Urine WBC 5-10/hpf H (0-5/HPF) Ur Squamous Epith Cells 0-1 /hpf (0-5/HPF) Urine Bacteria Few (2-10) H (None) Ur Culture Indicated? Specimen cultured Vol Urine Centrifuged 10ml (spun) Blood Type O Positive Antibody Screen Negative Crossmatch See Detail 06/06/24 06/07/24 06/07/24 Range/Units 22:00 01:02 03:27 WBC 10.2 (4.5-11.0) X10^3/uL RBC 3.29 L (4.5-5.9) X10^6/uL Hgb 5.8 L* 6.9 L* 6.7 L* (13.5-17.5) g/dL Hct 20.2 L* 23.7 L 22.5 L (41-53) % MCV 68.6 L D (80-100) fL MCH 20.5 L (26-34) PG MCHC 29.9 L (30-36) % RDW 23.6 H (11.6-14.8) % Plt Count 311 (150-400) X10^3/uL Neut % (Auto) 76.9 H (50-75) % Lymph % (Auto) 12.8 L (25-40) % [place] % (Auto) 7.6 (3-14) % Eos % (Auto) 2.3 (2-4) % Baso % (Auto) 0.4 (0-2) % Neut # (Auto) 7800 H (0105-5018) /uL Lymph # (Auto) 1300 (4435-6932) /uL [place] # (Auto) 800 (0-900) /uL Eos # (Auto) 200 (0-450) /uL Baso # (Auto) 0 (0-100) /uL Platelet Estimate Adequate on smear RBC Morphology See below Hypochromasia 3+ H Anisocytosis 2+ H Microcytosis 3+ H Ovalocytes PT (9.4-12.5) SECONDS INR (0.9-1.3) Sodium 136 L (137-145) mmol/L Potassium 4.4 (3.4-5.1) mmol/L Chloride 107 (98-107) mmol/L Carbon Dioxide 24 (22-32) mmol/L BUN 16 (9-20) mg/dL Creatinine 0.99 (0.66-1.25) mg/dL Estimated GFR > 60 (>60) mL/min BUN/Creatinine Ratio 16.2 (6-22) Glucose 130 H (80-110) mg/dL Calcium 8.7 (8.4-10.2) mg/dL Total Bilirubin (0.2-1.3) mg/dL AST (17-59) IU/L ALT (<50) IU/L Alkaline Phosphatase (38-126) U/L Total Protein (6.3-8.2) g/dL Albumin (3.5-5.0) g/dL Globulin (1.7-4.1) g/dL Albumin/Globulin Ratio (1.0-2.8) Urine RBC (0-5/HPF) Urine WBC (0-5/HPF) Ur Squamous Epith Cells (0-5/HPF) Urine Bacteria (None) Ur Culture Indicated? Vol Urine Centrifuged Blood Type Antibody Screen Crossmatch 06/07/24 Range/Units 07:35 WBC (4.5-11.0) X10^3/uL RBC (4.5-5.9) X10^6/uL Hgb 7.0 L (13.5-17.5) g/dL Hct 23.2 L (41-53) % MCV (80-100) fL MCH (26-34) PG MCHC (30-36) % RDW (11.6-14.8) % Plt Count (150-400) X10^3/uL Neut % (Auto) (50-75) % Lymph % (Auto) (25-40) % [place] % (Auto) (3-14) % Eos % (Auto) (2-4) % Baso % (Auto) (0-2) % Neut # (Auto) (3015-0076) /uL Lymph # (Auto) (8962-3470) /uL [place] # (Auto) (0-900) /uL Eos # (Auto) (0-450) /uL Baso # (Auto) (0-100) /uL Platelet Estimate RBC Morphology Hypochromasia Anisocytosis Microcytosis Ovalocytes PT (9.4-12.5) SECONDS INR (0.9-1.3) Sodium (137-145) mmol/L Potassium (3.4-5.1) mmol/L Chloride (98-107) mmol/L Carbon Dioxide (22-32) mmol/L BUN (9-20) mg/dL Creatinine (0.66-1.25) mg/dL Estimated GFR (>60) mL/min BUN/Creatinine Ratio (6-22) Glucose (80-110) mg/dL Calcium (8.4-10.2) mg/dL Total Bilirubin (0.2-1.3) mg/dL AST (17-59) IU/L ALT (<50) IU/L Alkaline Phosphatase (38-126) U/L Total Protein (6.3-8.2) g/dL Albumin (3.5-5.0) g/dL Globulin (1.7-4.1) g/dL Albumin/Globulin Ratio (1.0-2.8) Urine RBC (0-5/HPF) Urine WBC (0-5/HPF) Ur Squamous Epith Cells (0-5/HPF) Urine Bacteria (None) Ur Culture Indicated? Vol Urine Centrifuged Blood Type Antibody Screen Crossmatch MDM Narrative Medical decision making narrative: 73-year-old male with history of bladder tumor, intermittent gross hematuria, awaiting bladder tumor excision surgery with local urologist Dr. Amaya, now with gross hematuria symptoms again, and inability to urinate through the day today. Screening bladder scan 1000 PVR noted, urinalysis pending. Labs pending. Snell catheter placed with dark red blood. We will switch to CBI catheter. Hemoglobin today 5.0, compared to October 2023 was 10.2 at that time. Platelets adequate today and prior. White blood cell count normal today and prior. INR 1.3 noted. Will type and screen, transfuse one unti packed red blood cells. CBI catheter successfully placed, we will irrigate until clear. PRBC transfusion to be initiated soon. Signed out to [facility] ED shift physician Dr. Pedro vasquez: Received turned over. Review patient's history and physical exam. Patient has received 1 unit of packed red blood cells. Repeat H&H shows only mild improvement of both hemoglobin and hematocrit. He received a 2nd unit of packed red blood cell. A repeat H&H after this shows improvement however hemoglobin still less than 7 and hematocrit less than 24. To repeat shows relatively unchanged. Vital signs have been unremarkable. He was not been hypotensive. Not been tachycardic. No signs of fluid overload. He was had multiple episodes of lower abdominal pain and potentially feeling like he was retaining urine again. His Snell catheter is draining. The urine draining from his Snell catheter has started become darker and more bloody. Continuous bladder irrigation restarted. There were clots present. Given the patient's persistent anemia and what appears to be persistent bleeding patient was going to require admission to the hospital and Urology consultation. Unfortunately I do not have Urology available at this facility over the weekend. I discussed the case with Dr. Singh on-call for Urology at the [facility] who accepts the patient for transfer. I did discuss this with the patient. Patient was stable for transport. Awaiting bed assignment care turned over to day provider to continue to observe until disposition. Critical Care Time <Gerald Silver MD - Last Filed: 06/08/24 11:06> Critical Care Time Total Critical Care Time: 35 Attestation: The high probability of a clinically significant, sudden or life threatening deterioration of the [genitourinary, hematologic, cardiovascular] system(s) required my full and direct attention, intervention and personal management. Blood loss anemia treated with multiple blood transfusions. Coordination of care and frequent monitoring to remote definitive career development consultant, multiple shift handoffs, consultation and communicaton with urology specialist. The aggregate critical care time was [35] minutes. This time is in addition to time spent performing reported procedures but includes the following: [x] Data Review and interpretation [x] Patient assessment and monitoring of vital signs [x] Documentation [x] Medication orders and management Discharge Plan Departure Patient Disposition: [facility] Clinical Impression: Acute urinary retention, Gross hematuria, Bladder tumor, Anemia Prescriptions: No Action albuterol sulfate [Ventolin HFA] 90 mcg/actuation HFA aerosol inhaler 2 puff inhalation Q6H PRN (Reason: bronchospasm) Qty: 6.7 5RF allopurinol 300 mg tablet 300 mg PO DAILY Qty: 90 3RF atorvastatin 40 mg tablet 40 mg PO BEDTIME Qty: 90 3RF budesonide-formoterol [Symbicort] 160-4.5 mcg/actuation HFA aerosol inhaler 1 puff inhalation BID Qty: 10.2 5RF clopidogrel 75 mg tablet 75 mg PO DAILY Qty: 90 3RF clotrimazole 1 % cream 1 applic topical DAILY Qty: 30 2RF Rx Instructions: apply to groin and feet metformin 850 mg tablet 850 mg PO BID Qty: 180 3RF metoprolol succinate 25 mg tablet extended release 24 hr 25 mg PO BID Qty: 180 3RF omeprazole 20 mg capsule,delayed release(DR/EC) 20 mg PO DAILY Qty: 90 3RF sertraline 25 mg tablet 25 mg PO BEDTIME Qty: 90 3RF tiotropium bromide [Spiriva with HandiHaler] 18 mcg capsule, w/inhalation device 18 mcg inhalation DAILY Qty: 90 5RF ketoconazole 2 % cream 1 applic topical 2XW Qty: 30 11RF fluticasone propionate 50 mcg/actuation spray,suspension 2 spray intranasal DAILY Qty: 16 3RF ciprofloxacin HCl 500 mg tablet 500 mg PO BID Qty: 30 0RF glipizide 2.5 mg tablet 2.5 mg PO BID Qty: 180 3RF Rx Instructions: start taking 2.5 mg twice a day ferrous gluconate 324 mg (38 mg iron) tablet 324 mg PO DAILY Qty: 90 1RF (DME) blood-glucose meter Misc See Rx Instructions .Route Qty: 1 1RF Rx Instructions: use to test blood sugars BID (DME) Blood Glucose Test Strip See Rx Instructions .Route Qty: 50 3RF Rx Instructions: use to test blood sugars bid (DME) lancets Misc See Rx Instructions .Route Qty: 100 2RF Rx Instructions: use to test blood sugars bid cyanocobalamin (vitamin B-12) 1,000 mcg/mL solution 1,000 mcg IM QMONTH Qty: 3 0RF Rx Instructions: start 02/15/24 and inject 1,000 mcg for two more months. hydrocortisone 2.5 % cream 1 applic topical DAILY Rx Instructions: groin Referrals: Chau Dyson, [Primary Care Provider] -
[2024-06-06 18:10] LABS: Add Manual Diff / Slide Review NO; Basophils Absolute Auto 100 /uL (0-100); Basophils Percent Auto 1.1 % (0-2); Eosinophils Absolute Auto 200 /uL (0-450); Eosinophils Percent Auto 2.8 % (2-4); Lymphocytes Absolute Auto 1700 /uL (1100-4500); Lymphocytes Percent Auto 21.7 % (25-40); Mean Corpuscular HGB Conc 27.2 % (30-36); Mean Corpuscular Hemoglobin 17.3 PG (26-34); Mean Corpuscular Volume 63.5 fL (80-100); Monocytes Absolute Auto 500 /uL (0-900); Monocytes Percent Auto 6.6 % (3-14); Neutrophils Absolute Auto 5200 /uL (1500-7000); Neutrophils Percent Auto 67.8 % (50-75); Platelet Count 342 X10^3/uL (150-400); Red Cell Distribution Width 19.6 % (11.6-14.8); White Blood Cell Count 7.7 X10^3/uL (4.5-11.0)
[2024-06-06 18:12] LABS: INR 1.3 (0.9-1.3); Prothrombin Time 14.6 SECONDS (9.4-12.5)
--- NOTE | 2024-06-06 18:15 | PC.NURSE ---
16 fr cath was removed and replaced with a 22fr 3 way 30cc balloon was placed. The patient tolerated the procedure relatively well and did not report having any pain. The patient was producing pink urine prior to flushing the 3 way cath. Urine initially clear after flushing with 100cc sterile water.
[2024-06-06 18:16] LABS: Alanine Aminotransferase 10 IU/L (<50); Albumin 3.5 g/dL (3.5-5.0); Albumin Globulin Ratio 1.3 (1.0-2.8); Alkaline Phosphatase 90 U/L (38-126); Aspartate Aminotransferase 18 IU/L (17-59); Bilirubin Total 0.5 mg/dL (0.2-1.3); Blood Urea Nitrogen 16 mg/dL (9-20); Calcium 8.9 mg/dL (8.4-10.2); Carbon Dioxide 26 mmol/L (22-32); Chloride 105 mmol/L (98-107); Estimated Glomerular Filt Rate > 60 mL/min (>60); Globulin 2.8 g/dL (1.7-4.1); Glucose 116 mg/dL (80-110); HEMOLYSIS < 15 (0-50); Potassium 4.4 mmol/L (3.4-5.1); Sodium 136 mmol/L (137-145); Total Protein 6.3 g/dL (6.3-8.2)
[2024-06-06 18:27] LABS: Hematocrit 18.4 % (41-53)
[2024-06-06 18:41] LABS: Anisocytosis 2+; Microcytosis 3+
[2024-06-06 18:42] LABS: Hypochromasia 2+; Ovalocytes 1+; Platelet Estimate Adequate on smear
[2024-06-06] MEDS: HYDROMORPHONE 0.5 MG INJ IV (18:49)
[2024-06-06 22:14] LABS: Hematocrit 20.2 % (41-53); Hemoglobin 5.8 g/dL (13.5-17.5)
--- NOTE | 2024-06-06 22:51 | PC.NURSE ---
Pt assisted to bedside commode for large BM.
[2024-06-07] VITALS (37 sets, daily range): BP systolic 128–177; BP diastolic 56–78; PULSE 79–109; RESP 14–21; TEMP 36.8; O2SAT 93–98
[2024-06-07 01:09] LABS: Hematocrit 23.7 % (41-53)
[2024-06-07 01:11] LABS: Hemoglobin 6.9 g/dL (13.5-17.5)
[2024-06-07] MEDS: HYDROCODONE/ACET 5/325 TABLET 1 TAB PO (01:33)
--- NOTE | 2024-06-07 01:38 | PC.NURSE ---
Ok per Dr. Vasquez for pt to have food. Pudding and apple juice provided per pt request.
--- NOTE | 2024-06-07 02:36 | PC.NURSE ---
Pt resting quietly with eyes closed, resps even and not labored. No distress noted at this time. Pt rouses easily to verbal stimuli. Pt remains connected to cardiac, resp, blood pressure, and pulse ox monitors with alarms on and audible. Call light within reach.
--- NOTE | 2024-06-07 03:29 | PC.NURSE ---
No change in patient condition or status. Pt resting quietly with eyes closed, resps even and not labored. No distress noted at this time. Pt rouses easily to painful stimuli and responds I'm finally getting some rest. Pt remains connected to cardiac, reps, blood pressure, and pulse ox monitors with alarms on and audible. Call light within reach. Repeat labs drawn.
[2024-06-07 03:41] LABS: Add Manual Diff / Slide Review NO; Basophils Absolute Auto 0 /uL (0-100); Basophils Percent Auto 0.4 % (0-2); Eosinophils Absolute Auto 200 /uL (0-450); Eosinophils Percent Auto 2.3 % (2-4); Hematocrit 22.5 % (41-53); Lymphocytes Absolute Auto 1300 /uL (1100-4500); Lymphocytes Percent Auto 12.8 % (25-40); Mean Corpuscular HGB Conc 29.9 % (30-36); Mean Corpuscular Hemoglobin 20.5 PG (26-34); Mean Corpuscular Volume 68.6 fL (80-100); Monocytes Absolute Auto 800 /uL (0-900); Monocytes Percent Auto 7.6 % (3-14); Neutrophils Absolute Auto 7800 /uL (1500-7000); Neutrophils Percent Auto 76.9 % (50-75); Platelet Count 311 X10^3/uL (150-400); Red Blood Cell Count 3.29 X10^6/uL (4.5-5.9); Red Cell Distribution Width 23.6 % (11.6-14.8); White Blood Cell Count 10.2 X10^3/uL (4.5-11.0)
[2024-06-07 03:45] LABS: Hemoglobin 6.7 g/dL (13.5-17.5)
[2024-06-07 03:48] LABS: BUN Creatinine Ratio 16.2 (6-22); Blood Urea Nitrogen 16 mg/dL (9-20); Calcium 8.7 mg/dL (8.4-10.2); Carbon Dioxide 24 mmol/L (22-32); Chloride 107 mmol/L (98-107); Estimated Glomerular Filt Rate > 60 mL/min (>60); Glucose 130 mg/dL (80-110); HEMOLYSIS < 15 (0-50); Potassium 4.4 mmol/L (3.4-5.1); Sodium 136 mmol/L (137-145)
[2024-06-07 04:12] LABS: Anisocytosis 2+; Hypochromasia 3+; Platelet Estimate Adequate on smear
[2024-06-07 04:13] LABS: Microcytosis 3+
--- NOTE | 2024-06-07 05:56 | PC.NURSE ---
Dr Vasquez aware of current indwelling catheter output. CBI started at this time.
[2024-06-07 07:44] LABS: Hematocrit 23.2 % (41-53)
--- NOTE | 2024-06-07 08:10 | PC.NURSE ---
Lucia from transfer center calls with bed @075. RN report number is [phone]. Called [facility] to setup transport. [facility] to arrive at [facility] @0845. Transport time relayed to transfer [facility].
[2024-06-07] MEDS: ONDANSETRON 4 MG/2 ML INJ IV (08:36)
[2024-06-07] MEDS: HYDROMORPHONE 0.5 MG INJ IV (08:37)
== END 2024-06-07 09:28 | disposition short-term general hospital (02) ==
PROVIDERS: Emergency Medicine; Emergency Provider Emergency Medicine; PCP Family Medicine
DX: R33.9 Retention of urine, unspecified (principal); R31.0 Gross hematuria; D49.4 Neoplasm of unspecified behavior of bladder
CPT/HCPCS: 36430; 51702; 51798; 80048; 80053; 81015; 85014; 85018; 85025; 85610; 86850; 86900; 86901; 87086; 96374; 96375; 96376; 99285; 99291; P9016; J1171; J2405

== ENCOUNTER 2024-06-14 15:02 | Emergency (ER) | payer MEDICARE, MEDICAID, SELFPAY ==
[2023-09-18 16:00] VITALS: BMI 34.7
[2024-06-14 15:03] VITALS: BP 156/67; PULSE 90; RESP 16; TEMP 36.7; O2SAT 95; BMI 34.4
--- NOTE | 2024-06-14 15:31 | ED_ITS ---
HPI - Male Genitourinary <Sabrina Candelario PA-C - Last Filed: 06/14/24 15:48> General Chief complaint: Urogenital-Male Stated complaint: Needs Catheter Removed Time Seen by Provider: 06/14/24 15:31 Source: patient Mode of arrival: Wheelchair History of Present Illness HPI Narrative: Mr. Hurst is a very pleasant 73-year-old male with a past medical history of bladder mass removed at on Sunday06/09/24, COPD, T2 DM, HTN, anemia, AFib on who presents to the emergency department for urinary catheter removal. Patient follows with urologist Dr. Amaya here in [facility] however last week he developed gross hematuria and subsequent anemia and was transferred to [facility] in [place] for further management as we do not have Urology coverage over the weekend. On Sunday he subsequently had his bladder mass removed. A urinary catheter was placed. The urologist at advised the patient to remove his own catheter after 5 days however the patient did not feel comfortable doing so which prompted his ER arrival today for assistance with catheter removal. He denies any pain, fevers or concerns. Reports that he is feeling well. Related Data Home Medications Medication Instructions Recorded Confirmed hydrocortisone 2.5 % topical cream 1 applic topical DAILY 09/18/23 04/25/24 Previous Rx's Medication Instructions Recorded albuterol sulfate 90 mcg/actuation 2 puff inhalation Q6H PRN 10/27/23 aerosol inhaler (Ventolin HFA) bronchospasm #6.7 grams allopurinol 300 mg tablet 300 mg PO DAILY #90 tabs 10/27/23 atorvastatin 40 mg tablet 40 mg PO BEDTIME #90 tabs 10/27/23 budesonide-formoterol HFA 160 1 puff inhalation BID #10.2 grams 10/27/23 mcg-4.5 mcg/actuation aerosol inhaler (Symbicort) clopidogrel 75 mg tablet 75 mg PO DAILY #90 tabs 10/27/23 clotrimazole 1 % topical cream 1 applic topical DAILY #30 grams 10/27/23 metformin 850 mg tablet 850 mg PO BID #180 tabs 10/27/23 metoprolol succinate 25 mg 25 mg PO BID #180 tabs 10/27/23 tablet,extended release 24 hr omeprazole 20 mg capsule,delayed 20 mg PO DAILY #90 caps 10/27/23 release sertraline 25 mg tablet 25 mg PO BEDTIME #90 tabs 10/27/23 tiotropium bromide 18 mcg capsule 18 mcg inhalation DAILY #90 10/27/23 with inhalation device (Spiriva inhalations with HandiHaler) blood sugar diagnostic (Blood #50 ea 11/23/23 Glucose Test strips) blood-glucose meter #1 ea 11/23/23 ferrous gluconate 324 mg (38 mg 324 mg PO DAILY #90 tabs 11/23/23 iron) tablet glipizide 2.5 mg tablet 2.5 mg PO BID #180 tabs 11/23/23 lancets #100 ea 11/23/23 ketoconazole 2 % topical cream 1 applic topical 2XW #30 grams 02/13/24 cyanocobalamin (vitamin B-12) 1,000 mcg IM QMONTH #3 mL 02/15/24 1,000 mcg/mL injection solution fluticasone propionate 50 2 spray intranasal DAILY #16 grams 04/03/24 mcg/actuation nasal spray,suspension ciprofloxacin HCl 500 mg tablet 500 mg PO BID #30 tabs 04/11/24 Allergies Allergy/AdvReac Type Severity Reaction Status Date / Time No Known Drug Allergies Allergy Verified 06/14/24 15:10 Review of Systems <Sabrina Candelario PA-C - Last Filed: 06/14/24 15:48> Review of Systems ROS Unobtainable: All systems reviewed & are unremarkable except as noted in HPI and below Patient History <Sabrina Candelario PA-C - Last Filed: 06/14/24 15:48> Medical History Left knee pain B12 deficiency anemia History of tobacco use Microscopic hematuria Chronic anticoagulation History of gross hematuria Benign prostatic hyperplasia with lower urinary tract symptoms COPD (chronic obstructive pulmonary disease) Bradycardia Hypertension Type 2 diabetes mellitus Bladder mass Congestive heart failure Surgical History History of coronary artery bypass graft Anesthesia History of open heart surgery (~2004) Social History household members: family Smoking Status: Former smoker alcohol intake: current Smoking Status: Former smoker tobacco type: cigarettes alcohol intake frequency: a few times a month Exam <Sabrina Candelario PA-C - Last Filed: 06/14/24 15:48> Narrative Exam Narrative: GENERAL: 73 year old patient appears stated age. Obese pt, in no acute distress. HEAD: Atraumatic. Normocephalic. EYES: Extraocular motions intact. No scleral icterus. No injection or drainage. ENT: Nose without bleeding, purulent drainage. NECK: Trachea midline. Cervical ROM intact. CARDIOVASCULAR: Regular rate RESPIRATORY: ?Nonlabored respirations. ?Speaking in clear, full sentences. GASTROINTESTINAL: Abdomen soft, non-tender, nondistended. Declines exam. NEURO: AOx3. ?Clear speech. ?Moves all 4 extremities appropriately. SKIN: No rash or erythema of visible areas Initial Vital Signs Initial Vital Signs: Vital Signs Temperature 98.0 F 06/14/24 15:03 Pulse Rate 90 06/14/24 15:03 Respiratory Rate 16 06/14/24 15:03 Blood Pressure 156/67 H 06/14/24 15:03 Pulse Oximetry 95 06/14/24 15:03 Oxygen Delivery Method Room Air 06/14/24 15:03 <Sarah Iverson MD - Last Filed: 06/14/24 16:56> Initial Vital Signs Initial Vital Signs: Vital Signs Temperature 98.0 F 06/14/24 15:03 Pulse Rate 90 06/14/24 15:03 Respiratory Rate 16 06/14/24 15:03 Blood Pressure 156/67 H 06/14/24 15:03 Pulse Oximetry 95 06/14/24 15:03 Oxygen Delivery Method Room Air 06/14/24 15:03 Course <Sabrina Candelario PA-C - Last Filed: 06/14/24 15:48> Vital Signs Vital signs: Vital Signs - 8 hr 06/14/24 15:03 Temperature 98.0 F Pulse Rate 90 Respiratory Rate 16 Blood Pressure 156/67 H Pulse Oximetry 95 Oxygen Delivery Method Room Air <Sarah Iverson MD - Last Filed: 06/14/24 16:56> Vital Signs Vital signs: Vital Signs - 8 hr 06/14/24 15:03 Temperature 98.0 F Pulse Rate 90 Respiratory Rate 16 Blood Pressure 156/67 H Pulse Oximetry 95 Oxygen Delivery Method Room Air MDM - Male Genitourinary <Sabrina Candelario PA-C - Last Filed: 06/14/24 15:48> MDM Narrative Medical decision making narrative: 73-year-old male with a past medical history of bladder mass removed at on Sunday06/09/24, COPD, T2 DM, HTN, anemia, AFib on Eliquis who presents to the emergency department for urinary catheter removal. Differential diagnosis includes but is not limited to encounter for urinary catheter removal, UTI, hematuria, urinary retention, etc. On exam patient is in no acute distress, nontoxic appearing, vital signs appropriate. Patient is requesting his catheter be removed, he was instructed that he could do so by himself at home but it does not feel comfortable doing this. States that the catheter is bothering him and he is ready for it to be out. He has no abdominal pain fevers or concerns. Nursing staff removed the Snell catheter without difficulty and provided cleaning. I encouraged patient to stay in the emergency department to attempt self urination after some time however he is adamant that he wants to go home without waiting. Discussed signs and symptoms to return to the ER for including urinary retention, gross hematuria, pain, fevers, etc. Patient verbalized understanding of all information and has plans to follow up with his urologist here in [facility], Dr. Amaya. Patient is stable for discharge, return precautions discussed. Discharge Plan Departure Patient Disposition: Home Clinical Impression: Encounter for removal of urinary catheter Activity Restrictions/Additional Instructions: Dear Mr. Hurst, Today we removed your urinary catheter. It is very important that you are able to urinate on your own. Please drink water and if you are unable to urinate before bed this evening you need to return to the ER. If you have lots of bleeding or blood clots in the urine, pain, fevers, etc please return to the ER. Please follow up with your urologist, Dr. Amaya, as soon as possible for re- evaluation. Please follow up with your primary care doctor within the next 2-3 days for ER follow-up. (If you do not have a PCP you can call [phone]. ?to schedule an appointment with an [facility] Primary Care Provider) IF YOU DEVELOP ANY NEW OR WORSENING SYMPTOMS, RETURN TO THE ER! Please read the attached instructions, they highlight more specific treatments and interventions for you at home. Thank you for letting me participate in your care, Sabrina Candelario PA-C Prescriptions: No Action albuterol sulfate [Ventolin HFA] 90 mcg/actuation HFA aerosol inhaler 2 puff inhalation Q6H PRN (Reason: bronchospasm) Qty: 6.7 5RF allopurinol 300 mg tablet 300 mg PO DAILY Qty: 90 3RF atorvastatin 40 mg tablet 40 mg PO BEDTIME Qty: 90 3RF budesonide-formoterol [Symbicort] 160-4.5 mcg/actuation HFA aerosol inhaler 1 puff inhalation BID Qty: 10.2 5RF clopidogrel 75 mg tablet 75 mg PO DAILY Qty: 90 3RF clotrimazole 1 % cream 1 applic topical DAILY Qty: 30 2RF Rx Instructions: apply to groin and feet metformin 850 mg tablet 850 mg PO BID Qty: 180 3RF metoprolol succinate 25 mg tablet extended release 24 hr 25 mg PO BID Qty: 180 3RF omeprazole 20 mg capsule,delayed release(DR/EC) 20 mg PO DAILY Qty: 90 3RF sertraline 25 mg tablet 25 mg PO BEDTIME Qty: 90 3RF tiotropium bromide [Spiriva with HandiHaler] 18 mcg capsule, w/inhalation device 18 mcg inhalation DAILY Qty: 90 5RF ketoconazole 2 % cream 1 applic topical 2XW Qty: 30 11RF fluticasone propionate 50 mcg/actuation spray,suspension 2 spray intranasal DAILY Qty: 16 3RF ciprofloxacin HCl 500 mg tablet 500 mg PO BID Qty: 30 0RF glipizide 2.5 mg tablet 2.5 mg PO BID Qty: 180 3RF Rx Instructions: start taking 2.5 mg twice a day ferrous gluconate 324 mg (38 mg iron) tablet 324 mg PO DAILY Qty: 90 1RF (DME) blood-glucose meter Misc See Rx Instructions .Route Qty: 1 1RF Rx Instructions: use to test blood sugars BID (DME) Blood Glucose Test Strip See Rx Instructions .Route Qty: 50 3RF Rx Instructions: use to test blood sugars bid (DME) lancets Misc See Rx Instructions .Route Qty: 100 2RF Rx Instructions: use to test blood sugars bid cyanocobalamin (vitamin B-12) 1,000 mcg/mL solution 1,000 mcg IM QMONTH Qty: 3 0RF Rx Instructions: start 02/15/24 and inject 1,000 mcg for two more months. hydrocortisone 2.5 % cream 1 applic topical DAILY Rx Instructions: groin Referrals: Chau Dyson, DO [Primary Care Provider] - Stand Alone Forms: Patient Portal/API/Survey ED Sign-out <Sarah Iverson MD - Last Filed: 06/14/24 16:56> Cosign ED Attending Cosignature Attestation: I was immediately available in the department for consultation throughout this patient's visit. Sarah Iverson MD
== END 2024-06-14 15:43 | disposition home or self-care (01) ==
PROVIDERS: Emergency Provider Physician Assistant; PCP Family Medicine
DX: Z46.6 Encounter for fitting and adjustment of urinary device (principal)
CPT/HCPCS: 99281

== ENCOUNTER → 2024-08-12 15:45 | Outpatient (CLI) | payer MEDICARE, MEDICAID, SELFPAY ==
[2023-09-18 16:00] VITALS: BMI 34.7
== END ==
LOC: RESP 15:46
PROVIDERS: PCP Family Medicine; Referring Provider Internal Medicine Critical Care Medicine; Visit Provider Internal Medicine Critical Care Medicine
DX: J44.9 Chronic obstructive pulmonary disease, unspecified (principal); Z87.891 Personal history of nicotine dependence; R94.2 Abnormal results of pulmonary function studies
CPT/HCPCS: 94060; 94726; 94729

== ENCOUNTER 2025-02-10 16:43 | Inpatient (IN) | payer MEDICARE, MEDICAID, SELFPAY ==
[2023-09-18 16:00] VITALS: BMI 34.7
[2025-02-10] VITALS (27 sets, daily range): BP systolic 123–194; BP diastolic 60–83; PULSE 62–90; RESP 18–32; TEMP 36.3–36.8; O2SAT 92–100; BMI 33.0
[2025-02-10 17:40] LABS: Hematocrit 23.9 % (41-53); Mean Corpuscular HGB Conc 27.3 % (30-36); Mean Corpuscular Hemoglobin 17.4 PG (26-34); Mean Corpuscular Volume 63.8 fL (80-100); Platelet Count 288 X10^3/uL (150-400)
[2025-02-10 17:43] LABS: Hemoglobin 6.5 g/dL (13.5-17.5)
[2025-02-10 17:44] LABS: INR 2.3 (0.9-1.3); Prothrombin Time 25.1 SECONDS (9.4-12.5)
[2025-02-10 17:48] LABS: Alanine Aminotransferase 13 IU/L (<50); Albumin 4.3 g/dL (3.5-5.0); Albumin Globulin Ratio 1.5 (1.0-2.8); Alkaline Phosphatase 133 U/L (38-126); Blood Urea Nitrogen 19 mg/dL (9-20); Calcium 9.0 mg/dL (8.4-10.2); Carbon Dioxide 23 mmol/L (22-32); Chloride 104 mmol/L (98-107); Estimated Glomerular Filt Rate > 60 mL/min (>60); Globulin 2.8 g/dL (1.7-4.1); HEMOLYSIS < 15 (0-50); Iron 29 ug/dL (49-181); Potassium 4.4 mmol/L (3.4-5.1); Sodium 139 mmol/L (137-145); Total Protein 7.1 g/dL (6.3-8.2)
[2025-02-10 17:53] LABS: Glucose 45 mg/dL (70-99)
--- NOTE | 2025-02-10 18:04 | PC.NURSE ---
Pt given OJ,cheese and yogurt
--- NOTE | 2025-02-10 18:06 | ED.GENADULT ---
HPI - General Adult General Chief complaint: Shortness of Breath/Dyspnea Stated complaint: low hemoglobin and SOB Time Seen by Provider: 02/10/25 17:09 Source: patient Mode of arrival: Wheelchair History of Present Illness HPI narrative: 74-year-old male with history of CAD status post remote CABG, COPD, no home oxygen, history of atrial fibrillation, chronic anticoagulation with Eliquis Plavix aspirin, recurrent anemia with prior transfusion last year patient states due to hematuria from bladder cancer. He saw his PCP Dr. Dyson in clinic today and was found to have a very low blood sugar, no syncope or confusion or seizure, referred to ED for further evaluation. He denies black stools, blood in his urine, epistaxis. He has had some increased shortness of breath. No recent cough. Denies chest pain. Related Data Home Medications ?Medication ?Instructions ?Recorded ?Confirmed aspirin 81 mg tablet,delayed 81 mg PO DAILY 02/10/25 02/10/25 release Previous Rx's ?Medication ?Instructions ?Recorded metformin 850 mg tablet 850 mg PO BID #180 tabs 10/27/23 blood sugar diagnostic (Blood #50 ea 11/23/23 Glucose Test strips) blood-glucose meter #1 ea 11/23/23 lancets #100 ea 11/23/23 ketoconazole 2 % topical cream 1 applic topical 2XW #30 grams 02/13/24 budesonide-formoterol HFA 160 1 puff inhalation BID #10.2 grams 10/21/24 mcg-4.5 mcg/actuation aerosol inhaler (Symbicort) clopidogrel 75 mg tablet 75 mg PO DAILY #90 tabs 12/02/24 omeprazole 20 mg capsule,delayed 20 mg PO DAILY #90 caps 12/02/24 release metoprolol succinate 25 mg 25 mg PO BID #180 tabs 12/10/24 tablet,extended release 24 hr apixaban 5 mg tablet 5 mg PO BID #180 tabs 12/15/24 glipizide 2.5 mg tablet 2.5 mg PO BID #180 tabs 12/19/24 sertraline 25 mg tablet 25 mg PO ONCE PM #90 tabs 12/19/24 tiotropium bromide 18 mcg capsule 18 mcg inhalation DAILY #90 12/23/24 with inhalation device (Spiriva inhalations with HandiHaler) allopurinol 300 mg tablet 300 mg PO DAILY #90 tabs 01/05/25 ferrous gluconate 324 mg (38 mg 324 mg PO DAILY #90 tabs 01/12/25 iron) tablet atorvastatin 40 mg tablet 40 mg PO ONCE PM #90 tabs 01/28/25 clotrimazole 1 % topical cream 1 applic topical DAILY #30 grams 01/28/25 fluticasone propionate 50 2 spray intranasal DAILY #16 grams 01/28/25 mcg/actuation nasal spray,suspension hydrocortisone 2.5 % topical cream 1 applic topical DAILY #20 grams 01/28/25 Allergies Allergy/AdvReac Type Severity Reaction Status Date / Time No Known Drug Allergies Allergy Verified 02/10/25 16:53 Patient History Medical History Acute anemia Left knee pain B12 deficiency anemia History of tobacco use Microscopic hematuria Chronic anticoagulation History of gross hematuria Benign prostatic hyperplasia with lower urinary tract symptoms COPD (chronic obstructive pulmonary disease) Bradycardia Hypertension Type 2 diabetes mellitus Bladder mass Congestive heart failure Surgical History History of coronary artery bypass graft Anesthesia History of open heart surgery (~2004) Social History household members: family Smoking Status: Former smoker alcohol intake: current Smoking Status: Former smoker tobacco type: cigarettes alcohol intake frequency: a few times a month Exam Narrative Exam Narrative: GENERAL: Well-developed patient, in mild distress. HEAD: Atraumatic. Normocephalic. EYES: Pupils equal round and reactive. Extraocular motions intact. No scleral icterus. No injection or drainage. ENT: Nose without bleeding, purulent drainage. Throat without erythema, tonsillar hypertrophy or exudate. Airway patent. NECK: Trachea midline. Non tender CARDIOVASCULAR: Regular rate and rhythm without murmurs, gallops, or rubs. RESPIRATORY: Clear to auscultation. Breath sounds equal bilaterally. No wheezes, rales, or rhonchi. GASTROINTESTINAL: Abdomen soft, non-tender, nondistended. EXTREMITIES: No edema or joint tenderness. BACK: Nontender without deformity or crepitance. No flank tenderness. NEURO: AOx3. Motor functions grossly nonfocal. SKIN: No rash or erythema of visible areas Initial Vital Signs Initial Vital Signs: Vital Signs Temperature 97.3 F L 02/10/25 16:53 Pulse Rate 62 02/10/25 16:53 Respiratory Rate 18 02/10/25 16:53 Blood Pressure 125/60 02/10/25 16:53 Pulse Oximetry 98 02/10/25 16:53 Oxygen Delivery Method Room Air 02/10/25 16:53 Course Orders Ordered: ED Orders 02/10/25 19:50 Covid-19 + FLU A/B + RSV - PCR Stat 02/10/25 20:47 Troponin I Stat 02/10/25 20:55 Blood Culture Stat Acetaminophen (Acetaminophen 325 Mg Tablet) 1,000 mg PO Q6H PRN PRN Reason: Fever/Mild Pain (1-3) Al Hydrox/Mg Hydrox/Simethicone (Mag Hydrox/Alum/Simeth 30 Ml Udc) 30 ml PO Q6HR PRN PRN Reason: Dyspepsia Albuterol/Ipratropium (Albuterol/Ipratropium 3 Ml Ampul) 3 ml INH [id number] BRYAN Albuterol/Ipratropium (Albuterol/Ipratropium 3 Ml Ampul) 3 ml INH RTQ2HR PRN PRN Reason: SHORTNESS OF BREATH Allopurinol (Allopurinol 100 Mg Tablet) 300 mg PO DAILY [facility] Apixaban (Apixaban 5 Mg Tablet) 5 mg PO BID BRYAN Budesonide (Budesonide 0.5 Mg/2 Ml Neb) 0.5 mg INH RTBID BRYAN Ferrous Sulfate (Ferrous Sulfate 325 Mg Tablet) 325 mg PO DAILY [facility] Dextrose (D10w) 100 mls @ 1,200 mls/hr IV PRN PRN PRN Reason: Hypoglycemia Ceftriaxone Sodium 1,000 mg/ (Sodium Chloride) 100 mls @ 200 mls/hr IV Q24H [facility] Doxycycline Hyclate 100 mg/ (Sodium Chloride) 100 mls @ 100 mls/hr IV Q12H [facility] Insulin Human Lispro (Insulin Lispro 100 Unit/Ml 3ml Vial) 0 unit SUBCUT ACHS BRYAN; Protocol Metoprolol Succinate (Metoprolol Er 25 Mg Tablet) 25 mg PO BID [facility] Naloxone HCl (Naloxone 0.4 Mg/Ml Vial) 0.2 mg IV Q2MIN PRN PRN Reason: Opiate Reversal Ondansetron HCl (Ondansetron 4 Mg/2 Ml Inj) 4 mg IV Q8HR PRN PRN Reason: Nausea And Vomiting Pantoprazole Sodium (Pantoprazole Dr 20 Mg Tablet) 20 mg PO 0600 [facility] Sertraline HCl (Sertraline 50 Mg Tablet) 25 mg PO BEDTIME BRYAN Discontinued Medications Dextrose (Dextrose 50 % In Water 25 Gm/50 Ml Syringe) 25 gm IV NOW ONE Stop: 02/10/25 18:00 Last Admin: 02/10/25 18:17 Dose: 25 gm Documented By: JENNIFER Doxycycline Hyclate (Doxycycline Hyclate 100 Mg Tablet) 100 mg PO NOW ONE Stop: 02/10/25 20:17 Last Admin: 02/10/25 20:57 Dose: 100 mg Documented By: ASHLEY Furosemide (Furosemide 40 Mg/4 Ml Vial) 40 mg IV NOW ONE Stop: 02/10/25 20:18 Last Admin: 02/10/25 20:57 Dose: 40 mg Documented By: JENNIFER Ceftriaxone Sodium 1,000 mg/ (Sodium Chloride) 100 mls @ 200 mls/hr IV NOW ONE Stop: 02/10/25 20:17 Last Infusion: 02/10/25 21:30 Dose: Infused Documented By: Admin: 02/10/25 20:56 Dose: 200 mls/hr Documented By: JENNIFER Non-Formulary Medication (Budesonide-Formoterol [Symbicort]) 1 puff INHALATION BID [facility] Non-Formulary Medication (Tiotropium [place] [Spiriva With Handihaler]) 18 mcg INHALATION DAILY [facility] Vital Signs Vital signs: Vital Signs - 8 hr 02/10/25 20:00 02/10/25 20:00 02/10/25 20:15 Pulse Rate 73 Respiratory Rate 19 Blood Pressure 184/75 H 169/75 H Pulse Oximetry 96 02/10/25 20:15 02/10/25 20:30 02/10/25 20:30 Pulse Rate 76 71 Respiratory Rate 19 22 Blood Pressure 157/70 H Pulse Oximetry 93 97 Medical Decision Making Lab Data Lab results reviewed: Yes I reviewed the patient's lab results. Lab results narrative: White blood cell count 7800, hemoglobin 6.5, platelets [id number]. Glucose on basic panel 45 quite low. Normal renal function. Serum CO2 23 with normal electrolytes. Slight elevation alkaline phosphatase, other liver functions normal. INR 2.3 elevated. 02/10/25 17:25 02/10/25 17:25 Labs: Lab Results 02/10/25 02/10/25 02/10/25 Range/Units 17:25 18:35 19:36 WBC 7.8 (4.5-11.0) X10^3/uL RBC 3.76 L (4.5-5.9) X10^6/uL Hgb 6.5 L* (13.5-17.5) g/dL Hct 23.9 L (41-53) % MCV 63.8 L (80-100) fL MCH 17.4 L (26-34) PG MCHC 27.3 L (30-36) % RDW 19.9 H (11.6-14.8) % Plt Count 288 (150-400) X10^3/uL Neut % (Auto) Not Reportable Lymph % (Auto) Not Reportable Centre % (Auto) Not Reportable Eos % (Auto) Not Reportable Baso % (Auto) Not Reportable Neut # (Auto) Not Reportable Lymph # (Auto) Not Reportable Centre # (Auto) Not Reportable Eos # (Auto) Not Reportable Baso # (Auto) Not Reportable Total Counted 100 Seg Neutrophils % 71.0 H (38-70) % Lymphocytes % (Manual) 20.0 L (25-45) % Monocytes % (Manual) 4.0 (2-11) % Eosinophils % (Manual) 5.0 H (2-4) % Neutrophils # (Manual) 5538 (2254-1877) /uL Platelet Estimate Adequate on smear RBC Morphology See Hypochromasia 3+ H Poikilocytosis 1+ H Anisocytosis 2+ H Microcytosis 2+ H Ovalocytes 1+ H PT 25.1 H (9.4-12.5) SECONDS INR 2.3 H (0.9-1.3) Sodium 139 (137-145) mmol/L Potassium 4.4 (3.4-5.1) mmol/L Chloride 104 (98-107) mmol/L Carbon Dioxide 23 (22-32) mmol/L BUN 19 (9-20) mg/dL Creatinine 0.91 (0.66-1.25) mg/dL Estimated GFR > 60 (>60) mL/min BUN/Creatinine Ratio 20.9 (6-22) Glucose 45 L* (70-99) mg/dL POC Whole Bld Glucose 106 H (70-99) mg/dL Calcium 9.0 (8.4-10.2) mg/dL Iron 29 L (49-181) ug/dL Ferritin 7 L (18-464) ng/mL Total Bilirubin 0.6 (0.2-1.3) mg/dL AST 22 (17-59) IU/L ALT 13 (<50) IU/L Alkaline Phosphatase 133 H (38-126) U/L Troponin I < 0.012 (0.01-0.034) ng/mL NT-Pro-B Natriuret Pep 4780 H (<125) pg/mL Total Protein 7.1 (6.3-8.2) g/dL Albumin 4.3 (3.5-5.0) g/dL Globulin 2.8 (1.7-4.1) g/dL Albumin/Globulin Ratio 1.5 (1.0-2.8) SARS-CoV-2 (PCR) (Negative) Influenza A (RT-PCR) (NEGATIVE) Influenza B (RT-PCR) (NEGATIVE) RSV (PCR) (Negative) Blood Type O Positive Antibody Screen Negative Crossmatch See Detail 02/10/25 02/10/25 Range/Units 19:50 20:47 WBC (4.5-11.0) X10^3/uL RBC (4.5-5.9) X10^6/uL Hgb (13.5-17.5) g/dL Hct (41-53) % MCV (80-100) fL MCH (26-34) PG MCHC (30-36) % RDW (11.6-14.8) % Plt Count (150-400) X10^3/uL Neut % (Auto) Lymph % (Auto) Centre % (Auto) Eos % (Auto) Baso % (Auto) Neut # (Auto) Lymph # (Auto) Centre # (Auto) Eos # (Auto) Baso # (Auto) Total Counted Seg Neutrophils % (38-70) % Lymphocytes % (Manual) (25-45) % Monocytes % (Manual) (2-11) % Eosinophils % (Manual) (2-4) % Neutrophils # (Manual) (1897-7298) /uL Platelet Estimate RBC Morphology Hypochromasia Poikilocytosis Anisocytosis Microcytosis Ovalocytes PT (9.4-12.5) SECONDS INR (0.9-1.3) Sodium (137-145) mmol/L Potassium (3.4-5.1) mmol/L Chloride (98-107) mmol/L Carbon Dioxide (22-32) mmol/L BUN (9-20) mg/dL Creatinine (0.66-1.25) mg/dL Estimated GFR (>60) mL/min BUN/Creatinine Ratio (6-22) Glucose (70-99) mg/dL POC Whole Bld Glucose (70-99) mg/dL Calcium (8.4-10.2) mg/dL Iron (49-181) ug/dL Ferritin (18-464) ng/mL Total Bilirubin (0.2-1.3) mg/dL AST (17-59) IU/L ALT (<50) IU/L Alkaline Phosphatase (38-126) U/L Troponin I < 0.012 (0.01-0.034) ng/mL NT-Pro-B Natriuret Pep (<125) pg/mL Total Protein (6.3-8.2) g/dL Albumin (3.5-5.0) g/dL Globulin (1.7-4.1) g/dL Albumin/Globulin Ratio (1.0-2.8) SARS-CoV-2 (PCR) Negative (Negative) Influenza A (RT-PCR) Flu a negative (NEGATIVE) Influenza B (RT-PCR) Flu b negative (NEGATIVE) RSV (PCR) Negative (Negative) Blood Type Antibody Screen Crossmatch Point of Care Testing Glucose POC 106 Point of care testing: Point of Care Testing Glucose POC 106 Imaging Data Chest x-ray: Radiologist's Impression: [address] [address] XRay Report Signed Patient: Sánchez Hurst MR#: [id number] : 1950 Acct:[id number] Age/Sex: 74 / M Date of Service: 02/10/25 Loc: ED Accession Number: [id number] Procedure: XR chest 1V Ordering Provider: Gerald Silver MD PROCEDURE: XR CHEST 1V INDICATIONS: dyspnea TECHNIQUE: One view of the chest was acquired. COMPARISON: [facility], CR, XR CHEST 2V, 10/19/2023, 14:17. FINDINGS: Surgical changes and devices: Median sternotomy and CABG changes. Lungs and pleura: Patchy bilateral lower lung alveolar opacities, left more so than right. Small left pleural effusion. No pneumothorax. Mediastinum: The heart size is obscured by left base opacity. Mediastinal contour is stable. Mild central venous congestion. Bones and chest wall: No suspicious bony lesions. Overlying soft tissues appear unremarkable. IMPRESSION: Patchy bibasilar infrahilar alveolar opacities. With central venous congestion, differential diagnosis includes CHF and pneumonia. Dictated by: Molly Zavala M.D. on 02/10/2025 at 19:06 Approved by: Molly Zavala M.D. on 02/10/2025 at 19:11 ECG Data Attestation: I personally reviewed and interpreted this ECG as follows: Interpretation: 2025, sinus rhythm with PACs, ventricular rate 68. No obvious ST segment elevation or depression changes. NE 160, QRS 110, QTC 452. MDM Narrative Medical decision making narrative: 74-year-old male with shortness of breath, history of CAD, COPD, prior anemia status post transfusions last year from gross hematuria and bladder cancer, chronic anticoagulation for atrial fibrillation. At clinic today with his PCP Joaquin found to have low sugar, referred for further evaluation and treatment of hypoglycemia. Glucose 50, IV dextrose given, no seizure syncope activity. Other labs pending. Found to have hemoglobin 6.5, previous transfusions for similar range. On review of systems has no obvious external bleeding. Last colonoscopy 1 year ago. No hematemesis or coffee-ground emesis. No black or red stools. No further hematuria since bladder treatments last year. No recent nosebleeds. Type screen transfuse single unit packed red cells. IV dextrose, will give oral substrate. EKG, chest x-ray, other labs pending. Initial lab data: White blood cell count 7800, hemoglobin 6.5, platelets [id number]. Glucose on basic panel 45 noted. Normal renal function. Serum CO2 23 with normal electrolytes. Slight elevation alkaline phosphatase, other liver functions normal. INR 2.3 elevated. Chest x-ray shows patchy infrahilar bibasilar infiltrates, pneumonia versus CHF. See radiology report. Patient without lower extremity edema. We will start antibiotics for possible pneumonia. Blood cultures, IV ceftriaxone, oral doxycycline. Elevated BNP, we will be getting 1st packed cell transfusion for his anemia, we will give IV Lasix for now. Dyspnea with recurrent anemia requiring transfusion again, no review of systems source of obvious external blood loss, possible pneumonia by chest x-ray, possible CHF by chest x-ray and BNP, hypoglycemia given dextrose repletion, complex comorbidities and multiple acute medical problems, consider admission. Patient agreeable. PCP Kiel. Will contact hospitalist. 2100, case discussed with hospitalist Dr. Lim who accepts patient for admission to inpatient Critical Care Time Critical Care Time Critical Care Time: Yes Total Critical Care Time: 35 Attestation: The high probability of a clinically significant, sudden or life threatening deterioration of the [cardiopulmonary, metabolic, hematologic] system(s) required my full and direct attention, intervention and personal management. The aggregate critical care time was [35] minutes. This time is in addition to time spent performing reported procedures but includes the following: [x] Data Review and interpretation [x] Patient assessment and monitoring of vital signs [x Documentation [x] Medication orders and management Discharge Plan Departure Patient Disposition: Admitted As Inpatient Clinical Impression: Shortness of breath, Anemia, Congestive heart failure, Pneumonia, Hypoglycemia Admit Date/Time: 02/10/25 20:59 Admit Provider: Jose De Jesus Donovan
[2025-02-10] MEDS: DEXTROSE 50 % IN WATER 25 GM/50 ML SYRINGE IV (18:17)
[2025-02-10 18:23] LABS: Ferritin 7 ng/mL (18-464)
[2025-02-10 18:24] LABS: Add Manual Diff / Slide Review YES
--- NOTE | 2025-02-10 18:26 | DI.RAD.S_ITS ---
PROCEDURE: XR CHEST 1V INDICATIONS: dyspnea TECHNIQUE: One view of the chest was acquired. COMPARISON: , CR, XR CHEST 2V, 10/19/2023, 14:17. FINDINGS: Surgical changes and devices: Median sternotomy and CABG changes. Lungs and pleura: Patchy bilateral lower lung alveolar opacities, left more so than right. Small left pleural effusion. No pneumothorax. Mediastinum: The heart size is obscured by left base opacity. Mediastinal contour is stable. Mild central venous congestion. Bones and chest wall: No suspicious bony lesions. Overlying soft tissues appear unremarkable. IMPRESSION: Patchy bibasilar infrahilar alveolar opacities. With central venous congestion, differential diagnosis includes CHF and pneumonia. Dictated by: Molly Zavala M.D. on 02/10/2025 at 19:06 Approved by: Molly Zavala M.D. on 02/10/2025 at 19:11
--- NOTE | 2025-02-10 18:26 | EKG_ITS ---
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
[2025-02-10 18:35] LABS: Anisocytosis 2+; Hypochromasia 3+; Microcytosis 2+; Ovalocytes 1+
[2025-02-10 18:37] LABS: Poikilocytosis 1+
[2025-02-10 18:40] LABS: Eosinophils Percent Manual 5.0 % (2-4); Lymphocytes Percent Manual 20.0 % (25-45); Monocytes Percent Manual 4.0 % (2-11); Neutrophils Absolute Manual 5538 /uL (3000-5900); Segmented Neutrophils Percent 71.0 % (38-70); Total Cells Counted 100
[2025-02-10 18:45] LABS: RBC Morphology See
[2025-02-10 19:04] LABS: NT-proBNP (BNP-Adult 18+) 4780 pg/mL (<125); Troponin I < 0.012 ng/mL (0.01-0.034)
[2025-02-10 20:33] LABS: Influenza A - CEPHEID Flu A NEGATIVE (NEGATIVE); Influenza B - CEPHEID Flu B NEGATIVE (NEGATIVE)
[2025-02-10 20:36] LABS: COVID-19 CEPHEID 4-PLEX PCR Negative (Negative)
[2025-02-10] MEDS: DOXYCYCLINE HYCLATE 100 MG TABLET PO (20:57)
[2025-02-10] MEDS: FUROSEMIDE 40 MG/4 ML VIAL IV (20:57)
[2025-02-10 21:30] LABS: Troponin I < 0.012 ng/mL (0.01-0.034)
[2025-02-10 21:42] LABS: Ictotest Urine Negative (Negative)
--- NOTE | 2025-02-10 21:57 | PM.HP.1 ---
History of Present Illness History of Present Illness Date Patient Seen: 02/10/25 Time Patient Seen: 22:00 Chief complaint: low hemoglobin and SOB Narrative: 74-year-old male with history of CAD status post remote CABG, COPD, not on home oxygen, atrial fibrillation, anticoagulated with Eliquis, recurrent anemia with prior transfusion due to hematuria from bladder cancer. He saw his PCP Dr. Dyson in clinic today and was found to have a very low blood sugar and Hb. He denies black stools, blood in his urine, epistaxis. He has had some increased shortness of breath. No recent cough. Denies chest pain. ED workup showing Hb of 6.5, Iron 29, ferritin 7. CXR showing congestion, possible infiltrates. BNP elevated. Diagnosed with iron deficiency anemia, CHF, acute hypoxemic respiratory failure, possible PNA, hypoglycemia and admitted for blood transfusion, glucose monitoring, empiric abx and diuresis. [facility] Medical History Acute anemia Left knee pain B12 deficiency anemia History of tobacco use Microscopic hematuria Chronic anticoagulation History of gross hematuria Benign prostatic hyperplasia with lower urinary tract symptoms COPD (chronic obstructive pulmonary disease) Bradycardia Hypertension Type 2 diabetes mellitus Bladder mass Congestive heart failure Surgical History History of coronary artery bypass graft Anesthesia History of open heart surgery (~2004) Social History household members: family Smoking Status: Former smoker alcohol intake: current Meds Home Medications and Allergies Home Medications ?Medication ?Instructions ?Recorded ?Confirmed ?Type metformin 850 mg tablet 850 mg PO BID #180 tabs 10/27/23 02/10/25 Rx blood sugar diagnostic (Blood #50 ea 11/23/23 02/10/25 Rx Glucose Test strips) blood-glucose meter #1 ea 11/23/23 02/10/25 Rx lancets #100 ea 11/23/23 02/10/25 Rx ketoconazole 2 % topical cream 1 applic topical 2XW #30 grams 02/13/24 02/10/25 Rx budesonide-formoterol HFA 160 1 puff inhalation BID #10.2 grams 10/21/24 02/10/25 Rx mcg-4.5 mcg/actuation aerosol inhaler (Symbicort) clopidogrel 75 mg tablet 75 mg PO DAILY #90 tabs 12/02/24 02/10/25 Rx omeprazole 20 mg capsule,delayed 20 mg PO DAILY #90 caps 12/02/24 02/10/25 Rx release metoprolol succinate 25 mg 25 mg PO BID #180 tabs 12/10/24 02/10/25 Rx tablet,extended release 24 hr apixaban 5 mg tablet 5 mg PO BID #180 tabs 12/15/24 02/10/25 Rx glipizide 2.5 mg tablet 2.5 mg PO BID #180 tabs 12/19/24 02/10/25 Rx sertraline 25 mg tablet 25 mg PO ONCE PM #90 tabs 12/19/24 02/10/25 Rx tiotropium bromide 18 mcg capsule 18 mcg inhalation DAILY #90 12/23/24 02/10/25 Rx with inhalation device (Spiriva inhalations with HandiHaler) allopurinol 300 mg tablet 300 mg PO DAILY #90 tabs 01/05/25 02/10/25 Rx ferrous gluconate 324 mg (38 mg 324 mg PO DAILY #90 tabs 01/12/25 02/10/25 Rx iron) tablet atorvastatin 40 mg tablet 40 mg PO ONCE PM #90 tabs 01/28/25 02/10/25 Rx clotrimazole 1 % topical cream 1 applic topical DAILY #30 grams 01/28/25 02/10/25 Rx fluticasone propionate 50 2 spray intranasal DAILY #16 grams 01/28/25 02/10/25 Rx mcg/actuation nasal spray,suspension hydrocortisone 2.5 % topical cream 1 applic topical DAILY #20 grams 01/28/25 02/10/25 Rx aspirin 81 mg tablet,delayed 81 mg PO DAILY 02/10/25 02/10/25 History release Allergies Allergy/AdvReac Type Severity Reaction Status Date / Time No Known Drug Allergies Allergy Verified 02/10/25 16:53 Review of Systems Review of Systems Narrative: General - generalized weakness CVS - w/o chest pain RS - short of breath UG - w/o hematuria GI - w/o black or bloody stool Exam Vital Signs (past 8 hours): - 02/10/25 16:53 02/10/25 18:04 02/10/25 18:04 Temperature 97.3 F L Pulse Rate 62 67 Respiratory Rate 18 Blood Pressure 125/60 123/83 Pulse Oximetry 98 92 Oxygen Delivery Method Room Air 02/10/25 18:30 02/10/25 18:31 02/10/25 18:31 Temperature Pulse Rate 77 76 Respiratory Rate 22 22 Blood Pressure 169/67 H Pulse Oximetry 100 100 Oxygen Delivery Method Room Air 02/10/25 18:32 02/10/25 18:32 02/10/25 19:00 Temperature Pulse Rate 76 73 Respiratory Rate 23 21 Blood Pressure 151/67 H Pulse Oximetry 100 100 Oxygen Delivery Method 02/10/25 19:00 02/10/25 19:11 02/10/25 19:11 Temperature 98.2 F Pulse Rate 74 75 Respiratory Rate 18 28 H Blood Pressure 164/71 H 152/61 H Pulse Oximetry 100 Oxygen Delivery Method 02/10/25 19:11 02/10/25 19:15 02/10/25 19:15 Temperature Pulse Rate 65 Respiratory Rate 20 Blood Pressure 152/61 H 144/65 H Pulse Oximetry 100 Oxygen Delivery Method 02/10/25 19:28 02/10/25 19:30 02/10/25 19:30 Temperature 97.9 F Pulse Rate 74 75 Respiratory Rate 19 19 Blood Pressure 149/60 H 149/60 H Pulse Oximetry 98 Oxygen Delivery Method 02/10/25 19:45 02/10/25 19:45 02/10/25 20:00 Temperature Pulse Rate 70 73 Respiratory Rate 18 19 Blood Pressure 162/72 H Pulse Oximetry 97 96 Oxygen Delivery Method 02/10/25 20:00 02/10/25 20:15 02/10/25 20:15 Temperature Pulse Rate 76 Respiratory Rate 19 Blood Pressure 184/75 H 169/75 H Pulse Oximetry 93 Oxygen Delivery Method 02/10/25 20:30 02/10/25 20:30 02/10/25 21:00 Temperature Pulse Rate 71 74 Respiratory Rate 22 20 Blood Pressure 157/70 H Pulse Oximetry 97 98 Oxygen Delivery Method 02/10/25 21:05 02/10/25 21:05 02/10/25 21:16 Temperature Pulse Rate 68 75 Respiratory Rate 24 Blood Pressure 165/67 H Pulse Oximetry 96 Oxygen Delivery Method 02/10/25 21:16 02/10/25 21:42 Temperature 98.1 F Pulse Rate 86 Respiratory Rate 20 Blood Pressure 166/74 H 183/83 H Pulse Oximetry Oxygen Delivery Method Oxygen Delivery Method Room Air Narrative Exam Narrative: General - in no distress HEENT - normocephalic Skin - pale CVS - irregularly irregular RS - b/l crackles Neuro - lucid, appropriate mood Objective ECG Impression: NSR 68, PACs, QTc 426 ms Imaging Chest x-ray: Radiologist's impression: Patchy bibasilar infrahilar alveolar opacities. With central venous congestion, differential diagnosis includes CHF and pneumonia. Labs 02/11/25 03:50 02/11/25 03:50 Labs: Laboratory Results - last 24 hr 02/10/25 02/10/25 02/10/25 17:25 18:35 19:36 WBC 7.8 RBC 3.76 L Hgb 6.5 L* Hct 23.9 L MCV 63.8 L MCH 17.4 L MCHC 27.3 L RDW 19.9 H Plt Count 288 Neut % (Auto) Not Reportable Lymph % (Auto) Not Reportable [place] % (Auto) Not Reportable Eos % (Auto) Not Reportable Baso % (Auto) Not Reportable Neut # (Auto) Not Reportable Lymph # (Auto) Not Reportable [place] # (Auto) Not Reportable Eos # (Auto) Not Reportable Baso # (Auto) Not Reportable Total Counted 100 Seg Neutrophils % 71.0 H Lymphocytes % (Manual) 20.0 L Monocytes % (Manual) 4.0 Eosinophils % (Manual) 5.0 H Neutrophils # (Manual) 5538 Platelet Estimate Adequate on smear RBC Morphology See Hypochromasia 3+ H Poikilocytosis 1+ H Anisocytosis 2+ H Microcytosis 2+ H Ovalocytes 1+ H PT 25.1 H INR 2.3 H Sodium 139 Potassium 4.4 Chloride 104 Carbon Dioxide 23 BUN 19 Creatinine 0.91 Estimated GFR > 60 BUN/Creatinine Ratio 20.9 Glucose 45 L* POC Whole Bld Glucose 106 H Calcium 9.0 Iron 29 L Ferritin 7 L Total Bilirubin 0.6 AST 22 ALT 13 Alkaline Phosphatase 133 H Troponin I < 0.012 NT-Pro-B Natriuret Pep 4780 H Total Protein 7.1 Albumin 4.3 Globulin 2.8 Albumin/Globulin Ratio 1.5 Ur Bilirubin Confirm SARS-CoV-2 (PCR) Influenza A (RT-PCR) Influenza B (RT-PCR) RSV (PCR) Blood Type O Positive Antibody Screen Negative Crossmatch See Detail 02/10/25 02/10/25 02/10/25 19:50 20:47 21:21 WBC RBC Hgb Hct MCV MCH MCHC RDW Plt Count Neut % (Auto) Lymph % (Auto) [place] % (Auto) Eos % (Auto) Baso % (Auto) Neut # (Auto) Lymph # (Auto) [place] # (Auto) Eos # (Auto) Baso # (Auto) Total Counted Seg Neutrophils % Lymphocytes % (Manual) Monocytes % (Manual) Eosinophils % (Manual) Neutrophils # (Manual) Platelet Estimate RBC Morphology Hypochromasia Poikilocytosis Anisocytosis Microcytosis Ovalocytes PT INR Sodium Potassium Chloride Carbon Dioxide BUN Creatinine Estimated GFR BUN/Creatinine Ratio Glucose POC Whole Bld Glucose Calcium Iron Ferritin Total Bilirubin AST ALT Alkaline Phosphatase Troponin I < 0.012 NT-Pro-B Natriuret Pep Total Protein Albumin Globulin Albumin/Globulin Ratio Ur Bilirubin Confirm Negative SARS-CoV-2 (PCR) Negative Influenza A (RT-PCR) Flu a negative Influenza B (RT-PCR) Flu b negative RSV (PCR) Negative Blood Type Antibody Screen Crossmatch Assessment & Plan Assessment and plan (1) Hypoglycemia: Status: Acute (2) Congestive heart failure: Status: Acute (3) Anemia: Status: Acute (4) COPD (chronic obstructive pulmonary disease): Qualifiers: COPD type: unspecified COPD Qualified Code(s): J44.9 - Chronic obstructive pulmonary disease, unspecified Status: Acute (5) Type 2 diabetes mellitus: Qualifiers: Diabetes mellitus retirement insulin use: 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 Diabetes mellitus complication status: with circulatory complication Diabetes mellitus complication detail: with other circulatory complications Qualified Code(s): E11.59 - Type 2 diabetes mellitus with other circulatory complications Status: Acute Assessment & Plan narrative: Hypoglycemia / NIDDM - home glipizide and metformin on hold - SS, CCD Iron deficiency anemia - PRBC x 1 - Fe supplements - could be considered for IV iron HFpEF flare - had 40 mg of Lasix IVP in the ED - Is / Os CAD - w/o angina or ACS - BB - Plavix held A-fib - Eliquis - metoprolol Suspected PNA / COPD - empiric Rocephin, doxycycline - nebulized bronchodilators Patient consented to telemedicine, audio-visual encounter with RN assisting with the exam. Patient located at [facility], provider located in [place]. Time-Based Coding :: [TOTAL MINUTES] spent with patient and on the chart (including review of chart, obtaining history, exam, reviewing outside data, placing orders, documenting exam and treatment plan, and counseling patient) on [DATE].
--- NOTE | 2025-02-10 23:55 | PC.NURSE ---
requested Dr. Shelton with hospitalist team order h/H recheck 1hr post infusion of PRBC, advised he would complete order in future. RN assuming care notified.
[2025-02-11] VITALS (15 sets, daily range): BP systolic 115–152; BP diastolic 49–77; PULSE 65–93; RESP 12–22; TEMP 36.5–37.1; O2SAT 92–98
--- NOTE | 2025-02-11 03:37 | PC.WOUNDPHOT ---
right foot right elbow right hand left elbow left forearm left knee abdomen
[2025-02-11 04:08] LABS: Add Manual Diff / Slide Review NO; Hematocrit 24.7 % (41-53); Hemoglobin 7.1 g/dL (13.5-17.5); Lymphocytes Absolute Auto 1800 /uL (1100-4500); Mean Corpuscular HGB Conc 28.7 % (30-36); Mean Corpuscular Hemoglobin 18.9 PG (26-34); Mean Corpuscular Volume 65.8 fL (80-100); Platelet Count 243 X10^3/uL (150-400)
[2025-02-11 04:18] LABS: Blood Urea Nitrogen 20 mg/dL (9-20); Calcium 8.8 mg/dL (8.4-10.2); Carbon Dioxide 28 mmol/L (22-32); Chloride 104 mmol/L (98-107); Estimated Glomerular Filt Rate > 60 mL/min (>60); Glucose 106 mg/dL (70-99); HEMOLYSIS < 15 (0-50); Potassium 4.4 mmol/L (3.4-5.1); Sodium 139 mmol/L (137-145)
[2025-02-11 04:28] LABS: NT-proBNP (BNP-Adult 18+) 5340 pg/mL (<125)
[2025-02-11 04:37] LABS: Anisocytosis 2+; Hypochromasia 2+; Microcytosis 2+
[2025-02-11 04:38] LABS: Ovalocytes 1+
[2025-02-11] MEDS: PANTOPRAZOLE DR 20 MG TABLET PO (06:15)
[2025-02-11] MEDS: ALBUTEROL/IPRATROPIUM 3 ML AMPUL INH ×3 (07:32→19:27)
[2025-02-11] MEDS: BUDESONIDE 0.5 MG/2 ML NEB INH ×2 (07:32→19:27)
[2025-02-11] MEDS: ONDANSETRON 4 MG/2 ML INJ IV (08:29)
[2025-02-11] MEDS: DOXYCYCLINE 100 MG in SODIUM CHLORIDE 0.9% 100 ML IV ×2 (08:57→21:50)
[2025-02-11] MEDS: APIXABAN 5 MG TABLET PO ×2 (11:36→20:59)
[2025-02-11] MEDS: METOPROLOL ER 25 MG TABLET PO ×2 (11:36→20:53)
[2025-02-11] MEDS: FERROUS SULFATE 325 MG TABLET PO (11:37)
[2025-02-11] MEDS: ASPIRIN EC 81 MG TABLET PO (11:37)
[2025-02-11] MEDS: CLOPIDOGREL 75 MG TABLET PO (11:37)
[2025-02-11] MEDS: FLUTICASONE 120 SPRAY/16 GM SPRAY.SUSP NASAL (11:53)
[2025-02-11] MEDS: METFORMIN HCL 500 MG TABLET PO ×2 (11:54→17:39)
--- NOTE | 2025-02-11 13:31 | P.PN_ITS ---
Subjective Subjective Date Patient Seen: 02/11/25 Interval history: Chief complaint: Dyspnea shortness for breath hypoxic respiratory failure secondary to acute on chronic congestive heart failure and blood loss anemia History of present illness: 02/10: 74-year-old male with history of CAD status post remote CABG, COPD, not on home oxygen, atrial fibrillation, anticoagulated with Eliquis, recurrent anemia with prior transfusion due to hematuria from bladder cancer. He saw his PCP Dr. Dyson in clinic today and was found to have a very low blood sugar and Hb. He denies black stools, blood in his urine, epistaxis. He has had some increased shortness of breath. No recent cough. Denies chest pain. ED workup showing Hb of 6.5, Iron 29, ferritin 7. CXR showing congestion, possible infiltrates. BNP elevated. Diagnosed with iron deficiency anemia, CHF, acute hypoxemic respiratory failure, possible PNA, hypoglycemia and admitted for blood transfusion, glucose monitoring, empiric abx and diuresis. Echocardiogram from 2023: fib with rvr; hr was 87-122 bpm during the exam Normal LV size; mild LVH; low normal EF estimated at 50-55%. RV is not well seen, but appears to be mildly dilated with mildly reduced RV systolic function. No significant valvular abnormalities. Hospital course: Patient is diuresed overnight hemoglobin is still at 7 goal is 8 for oxygen carrying capacity in setting of coronary disease and congestive heart failure. Patient did not have any fevers or chills overnight no chest pains or balance Review of systems: No fever or chills No chest pains palpitations No nausea vomiting diarrhea No paresthesia paresis No urinary symptom Physical exam: Chronically ill elderly gentleman HEENT unremarkable Neck unassessable for JVD Heart irregularly irregular rhythm heart sounds distant Lungs with diminished breath sounds with crackles at bilateral lower lobe Abdomen is nondistended nontender bowel sounds present To 3+ edema of the lower extremities bilaterally Hemoglobin 7 basic metabolic normal Assessment and plan: Acute on chronic diastolic congestive heart failure with acute hypoxic respiratory failure low suspicion of superimposed community-acquired pneumonia * Brisk diuresis * Transfuse to hemoglobin greater than 8 for oxygen carrying capacity * 1.8 mL fluid restriction * Strict measurement of intake and output Chronic iron deficiency anemia on iron supplementation and anticoagulated for atrial fibrillation * Stool guaiac for evaluation of possible ongoing blood loss * May need upper and lower endoscopy at some point when patient is more stable probably as an outpatient Chronic coronary artery disease: * Continue all core measures Chronic atrial fibrillation: * Continue rate control and CVA prophylaxis COPD: * Continue maintenance inhalers * No signs of acute exacerbation 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: * Under care of Urology DVT prophylaxis: * Covered with anticoagulation Code status: * Full code blue 35 minutes were involved in the management of this patient including [id number] evaluation interview exam examination review of records images and objective laboratory findings Exam Vital Signs (past 8 hours): - 02/11/25 05:38 02/11/25 07:00 02/11/25 07:45 Temperature 98.4 F Pulse Rate 83 78 Respiratory Rate 16 16 Blood Pressure 136/71 Pulse Oximetry 92 95 Oxygen Delivery Method Room Air Room Air Oxygen Flow Rate 0 02/11/25 08:00 02/11/25 11:29 02/11/25 11:34 Temperature 98.6 F 98.3 F 98.3 F Pulse Rate 76 78 72 Respiratory Rate 22 20 20 Blood Pressure 152/77 H 137/71 137/71 Pulse Oximetry 96 Oxygen Delivery Method Oxygen Flow Rate 0 02/11/25 11:36 02/11/25 11:49 02/11/25 12:00 Temperature 98.3 F 98.3 F Pulse Rate 68 70 79 Respiratory Rate 20 12 Blood Pressure 137/71 120/70 137/71 Pulse Oximetry 92 Oxygen Delivery Method Oxygen Flow Rate 0 Oxygen Delivery Method Room Air Oxygen Flow Rate 0 Objective Labs 02/11/25 03:50 02/11/25 03:50 Labs: Laboratory Results - last 24 hr 02/10/25 02/10/25 02/10/25 17:25 18:35 19:36 WBC 7.8 RBC 3.76 L Hgb 6.5 L* Hct 23.9 L MCV 63.8 L MCH 17.4 L MCHC 27.3 L RDW 19.9 H Plt Count 288 Neut % (Auto) Not Reportable Lymph % (Auto) Not Reportable [place] % (Auto) Not Reportable Eos % (Auto) Not Reportable Baso % (Auto) Not Reportable Neut # (Auto) Not Reportable Lymph # (Auto) Not Reportable [place] # (Auto) Not Reportable Eos # (Auto) Not Reportable Baso # (Auto) Not Reportable Total Counted 100 Seg Neutrophils % 71.0 H Lymphocytes % (Manual) 20.0 L Monocytes % (Manual) 4.0 Eosinophils % (Manual) 5.0 H Neutrophils # (Manual) 5538 Platelet Estimate Adequate on smear RBC Morphology See Hypochromasia 3+ H Poikilocytosis 1+ H Anisocytosis 2+ H Microcytosis 2+ H Ovalocytes 1+ H PT 25.1 H INR 2.3 H Sodium 139 Potassium 4.4 Chloride 104 Carbon Dioxide 23 BUN 19 Creatinine 0.91 Estimated GFR > 60 BUN/Creatinine Ratio 20.9 Glucose 45 L* POC Whole Bld Glucose 106 H Calcium 9.0 Iron 29 L Ferritin 7 L Total Bilirubin 0.6 AST 22 ALT 13 Alkaline Phosphatase 133 H Troponin I < 0.012 NT-Pro-B Natriuret Pep 4780 H Total Protein 7.1 Albumin 4.3 Globulin 2.8 Albumin/Globulin Ratio 1.5 Ur Bilirubin Confirm SARS-CoV-2 (PCR) Influenza A (RT-PCR) Influenza B (RT-PCR) RSV (PCR) Blood Type O Positive Antibody Screen Negative Crossmatch See Detail 02/10/25 02/10/25 02/10/25 19:50 20:47 21:21 WBC RBC Hgb Hct MCV MCH MCHC RDW Plt Count Neut % (Auto) Lymph % (Auto) [place] % (Auto) Eos % (Auto) Baso % (Auto) Neut # (Auto) Lymph # (Auto) [place] # (Auto) Eos # (Auto) Baso # (Auto) Total Counted Seg Neutrophils % Lymphocytes % (Manual) Monocytes % (Manual) Eosinophils % (Manual) Neutrophils # (Manual) Platelet Estimate RBC Morphology Hypochromasia Poikilocytosis Anisocytosis Microcytosis Ovalocytes PT INR Sodium Potassium Chloride Carbon Dioxide BUN Creatinine Estimated GFR BUN/Creatinine Ratio Glucose POC Whole Bld Glucose Calcium Iron Ferritin Total Bilirubin AST ALT Alkaline Phosphatase Troponin I < 0.012 NT-Pro-B Natriuret Pep Total Protein Albumin Globulin Albumin/Globulin Ratio Ur Bilirubin Confirm Negative SARS-CoV-2 (PCR) Negative Influenza A (RT-PCR) Flu a negative Influenza B (RT-PCR) Flu b negative RSV (PCR) Negative Blood Type Antibody Screen Crossmatch 02/11/25 02/11/25 02/11/25 00:36 03:50 07:44 WBC 9.2 RBC 3.76 L Hgb 7.1 L Hct 24.7 L MCV 65.8 L MCH 18.9 L MCHC 28.7 L RDW 22.2 H Plt Count 243 Neut % (Auto) 67.4 Lymph % (Auto) 19.2 L [place] % (Auto) 6.4 Eos % (Auto) 5.3 H Baso % (Auto) 1.7 Neut # (Auto) 6200 Lymph # (Auto) 1800 [place] # (Auto) 600 Eos # (Auto) 500 H Baso # (Auto) 200 H Total Counted Seg Neutrophils % Lymphocytes % (Manual) Monocytes % (Manual) Eosinophils % (Manual) Neutrophils # (Manual) Platelet Estimate RBC Morphology See below Hypochromasia 2+ H Poikilocytosis Anisocytosis 2+ H Microcytosis 2+ H Ovalocytes 1+ H PT INR Sodium 139 Potassium 4.4 Chloride 104 Carbon Dioxide 28 BUN 20 Creatinine 0.89 Estimated GFR > 60 BUN/Creatinine Ratio 22.5 H Glucose 106 H POC Whole Bld Glucose 123 H 103 H Calcium 8.8 Iron Ferritin Total Bilirubin AST ALT Alkaline Phosphatase Troponin I NT-Pro-B Natriuret Pep 5340 H Total Protein Albumin Globulin Albumin/Globulin Ratio Ur Bilirubin Confirm SARS-CoV-2 (PCR) Influenza A (RT-PCR) Influenza B (RT-PCR) RSV (PCR) Blood Type Antibody Screen Crossmatch 02/11/25 11:58 WBC RBC Hgb Hct MCV MCH MCHC RDW Plt Count Neut % (Auto) Lymph % (Auto) [place] % (Auto) Eos % (Auto) Baso % (Auto) Neut # (Auto) Lymph # (Auto) [place] # (Auto) Eos # (Auto) Baso # (Auto) Total Counted Seg Neutrophils % Lymphocytes % (Manual) Monocytes % (Manual) Eosinophils % (Manual) Neutrophils # (Manual) Platelet Estimate RBC Morphology Hypochromasia Poikilocytosis Anisocytosis Microcytosis Ovalocytes PT INR Sodium Potassium Chloride Carbon Dioxide BUN Creatinine Estimated GFR BUN/Creatinine Ratio Glucose POC Whole Bld Glucose 140 H Calcium Iron Ferritin Total Bilirubin AST ALT Alkaline Phosphatase Troponin I NT-Pro-B Natriuret Pep Total Protein Albumin Globulin Albumin/Globulin Ratio Ur Bilirubin Confirm SARS-CoV-2 (PCR) Influenza A (RT-PCR) Influenza B (RT-PCR) RSV (PCR) Blood Type Antibody Screen Crossmatch [facility] Medical History Acute anemia Left knee pain B12 deficiency anemia History of tobacco use Microscopic hematuria Chronic anticoagulation History of gross hematuria Benign prostatic hyperplasia with lower urinary tract symptoms COPD (chronic obstructive pulmonary disease) Bradycardia Hypertension Type 2 diabetes mellitus Bladder mass Congestive heart failure Surgical History History of coronary artery bypass graft Anesthesia History of open heart surgery (~2004) Social History household members: family Smoking Status: Former smoker alcohol intake: current Assessment & Plan Time-Based Coding :: [TOTAL MINUTES] spent with patient and on the chart (including review of chart, obtaining history, exam, reviewing outside data, placing orders, documenting exam and treatment plan, and counseling patient) on [DATE].
--- NOTE | 2025-02-11 13:52 | CM.DANOTE ---
Initial DCP Assessment Visit Note Reviewed EMR and team rounds for pt's medical status and updates. Met with pt at bedside to introduce self and role, pt was found to be alert/oriented, receiving a breathing tx at the time of this visit. Pt resides modified independently in his sister's home w/sister. His sister will likely transport him back home at d/c. Payor: Medicare PCP: Chau Dyson Pt is a 74 year-old M with a hx of COPD, CAD, remote CABG, Afib, and bladder cancer. He was send by his PCP for further evalution of low blood sugar, SOB, and incidentally for low hemoglobin. He received 1-unit of packed red blood cells in the ED. ED dx include iron deficiency anemia, acute hypoxemic respiratory failure, and possible pneumonia. He was started on IV diuretics, antibiotics, and admitted to the floor for further tx/monitoring. TEMO will assist pt in completing the [facility] Medicaid application and expedited hospital request for processing prior to home d/c. Will plan to order [facility] for post-dc RN/PT/OT f/u. Will need F/F orders and EMR orders for HH. Discharge Planning/Care Management CM Discharge Assessment Start: 02/10/25 22:25 Freq: Status: Active Protocol: Document 02/11/25 13:41 DPL (Rec: 02/11/25 13:44 DPL [id number]) Discharge Planning Assessment Assigned Discharge TEMO [employer] Advance Directives? No History Provided By Patient,Medical Record Has Patient been No admitted in last 30 days? Prior Living House Arrangements Household Members family Type of Relies on Others transporation used prior to admit Independent with ADL No: modified independent with sister's assistance 's Is patient alert and Yes oriented? Needs Assistance Home Chores / Shopping With Caregiver for No Another Comment N/A Patient/Family Home with Home Health Preference Comment Pending PT/OT evals Barriers to No Discharge Discharge Plan Home Transportation Sister Arrangement Referrals Initiated Home Health,Other If patient plan is No home with home health: Has signed face to face form been completed? Whiteboard Updated Yes in Patient Room with name and ext. # of Tool Design Engineer Review Status In Process Please Provide Date 02/11/25 Initial DC Assessment Was Performed
[2025-02-11] MEDS: FUROSEMIDE 80 MG in SODIUM CHLORIDE 0.9% 50 ML 116 MG IV (15:23)
[2025-02-11] MEDS: ATORVASTATIN 20 MG TABLET 40 MG PO (20:52)
[2025-02-11] MEDS: SERTRALINE 50 MG TABLET 25 MG PO (20:55)
[2025-02-12] VITALS (12 sets, daily range): BP systolic 118–149; BP diastolic 57–79; PULSE 64–86; RESP 14–18; TEMP 36.6–37.1; O2SAT 92–97
[2025-02-12] MEDS: PANTOPRAZOLE DR 20 MG TABLET PO (06:07)
[2025-02-12 06:31] LABS: Blood Urea Nitrogen 22 mg/dL (9-20); Calcium 8.6 mg/dL (8.4-10.2); Carbon Dioxide 28 mmol/L (22-32); Chloride 102 mmol/L (98-107); Estimated Glomerular Filt Rate > 60 mL/min (>60); Glucose 104 mg/dL (70-99); HEMOLYSIS < 15 (0-50); Potassium 4.2 mmol/L (3.4-5.1); Sodium 138 mmol/L (137-145)
[2025-02-12 06:44] LABS: Hematocrit 25.6 % (41-53); Hemoglobin 7.5 g/dL (13.5-17.5); Mean Corpuscular HGB Conc 29.5 % (30-36); Mean Corpuscular Hemoglobin 19.9 PG (26-34); Mean Corpuscular Volume 67.5 fL (80-100)
[2025-02-12 06:45] LABS: Add Manual Diff / Slide Review YES; Platelet Count 241 X10^3/uL (150-400)
[2025-02-12] MEDS: FUROSEMIDE 80 MG in SODIUM CHLORIDE 0.9% 50 ML 116 MG IV ×2 (06:47→15:40)
[2025-02-12 07:14] LABS: Anisocytosis 1+; Eosinophils Percent Manual 9.0 % (2-4); Lymphocytes Percent Manual 17.0 % (25-45); Monocytes Percent Manual 2.0 % (2-11); Neutrophils Absolute Manual 5760 /uL (3000-5900); Poikilocytosis 1+; Segmented Neutrophils Percent 72.0 % (38-70); Total Cells Counted 100
[2025-02-12] MEDS: BUDESONIDE 0.5 MG/2 ML NEB INH ×2 (08:48→19:14)
[2025-02-12] MEDS: ALBUTEROL/IPRATROPIUM 3 ML AMPUL INH ×3 (08:48→19:14)
[2025-02-12] MEDS: HYDROCORTISONE 2.5% CREAM 30 GM 1 APPLIC TOP (10:13)
[2025-02-12] MEDS: DOXYCYCLINE 100 MG in SODIUM CHLORIDE 0.9% 100 ML IV ×2 (10:14→22:04)
[2025-02-12] MEDS: METOPROLOL ER 25 MG TABLET PO ×2 (10:16→20:43)
[2025-02-12] MEDS: METFORMIN HCL 500 MG TABLET PO ×2 (10:19→16:57)
[2025-02-12] MEDS: ASPIRIN EC 81 MG TABLET PO (10:19)
[2025-02-12] MEDS: APIXABAN 5 MG TABLET PO ×2 (10:19→20:44)
[2025-02-12] MEDS: FERROUS SULFATE 325 MG TABLET PO (10:19)
[2025-02-12] MEDS: FLUTICASONE 120 SPRAY/16 GM SPRAY.SUSP NASAL (10:20)
[2025-02-12] MEDS: CLOPIDOGREL 75 MG TABLET PO (10:20)
--- NOTE | 2025-02-12 10:54 | P.PN_ITS ---
Subjective Subjective Date Patient Seen: 02/12/25 Interval history: Chief complaint: Dyspnea shortness for breath hypoxic respiratory failure secondary to acute on chronic congestive heart failure and blood loss anemia History of present illness: 02/10: 74-year-old male with history of CAD status post remote CABG, COPD, not on home oxygen, atrial fibrillation, anticoagulated with Eliquis, recurrent anemia with prior transfusion due to hematuria from bladder cancer. He saw his PCP Dr. Dyson in clinic today and was found to have a very low blood sugar and Hb. He denies black stools, blood in his urine, epistaxis. He has had some increased shortness of breath. No recent cough. Denies chest pain. ED workup showing Hb of 6.5, Iron 29, ferritin 7. CXR showing congestion, possible infiltrates. BNP elevated. Diagnosed with iron deficiency anemia, CHF, acute hypoxemic respiratory failure, possible PNA, hypoglycemia and admitted for blood transfusion, glucose monitoring, empiric abx and diuresis. Echocardiogram from 2023: fib with rvr; hr was 87-122 bpm during the exam Normal LV size; mild LVH; low normal EF estimated at 50-55%. RV is not well seen, but appears to be mildly dilated with mildly reduced RV systolic function. No significant valvular abnormalities. Hospital course: 02/11: Patient is diuresed overnight hemoglobin is still at 7 goal is 8 for oxygen carrying capacity in setting of coronary disease and congestive heart failure. Patient did not have any fevers or chills overnight no chest pains or balance 02/12: Patient breathing much more easily net urine output 1400 mL Review of systems: No fever or chills No chest pains palpitations No nausea vomiting diarrhea No paresthesia paresis No urinary symptom Physical exam: Chronically ill elderly gentleman HEENT unremarkable Neck unassessable for JVD Heart irregularly irregular rhythm heart sounds distant Lungs with diminished breath sounds with crackles at bilateral lower lobe Abdomen is nondistended nontender bowel sounds present To 3+ edema of the lower extremities bilaterally Hemoglobin 7 basic metabolic normal Assessment and plan: Acute on chronic diastolic congestive heart failure with acute hypoxic respiratory failure low suspicion of superimposed community-acquired pneumonia * Brisk diuresis * Transfuse to hemoglobin greater than 8 for oxygen carrying capacity * 1.8 mL fluid restriction * Strict measurement of intake and output Chronic iron deficiency anemia on iron supplementation and anticoagulated for atrial fibrillation * Stool guaiac for evaluation of possible ongoing blood loss * May need upper and lower endoscopy at some point when patient is more stable probably as an outpatient Chronic coronary artery disease: * Continue all core measures Chronic atrial fibrillation: * Continue rate control and CVA prophylaxis COPD: * Continue maintenance inhalers * No signs of acute exacerbation 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: * Under care of Urology DVT prophylaxis: * Covered with anticoagulation Code status: * Full code blue 35 minutes were involved in the management of this patient including [id number] evaluation interview exam examination review of records images and objective laboratory findings Exam Vital Signs (past 8 hours): - 02/12/25 04:00 02/12/25 08:00 02/12/25 08:58 Temperature 97.8 F 97.9 F Pulse Rate 83 64 69 Respiratory Rate 18 16 16 Blood Pressure 149/79 H 118/63 Pulse Oximetry 94 92 94 Oxygen Delivery Method Room Air Oxygen Flow Rate 0 02/12/25 10:16 Temperature Pulse Rate 81 Respiratory Rate Blood Pressure Pulse Oximetry Oxygen Delivery Method Oxygen Flow Rate Oxygen Delivery Method Room Air Oxygen Flow Rate 0 Objective Labs 02/12/25 06:00 02/12/25 06:00 Labs: Laboratory Results - last 24 hr 02/10/25 02/11/25 02/11/25 17:25 11:58 16:46 WBC RBC Hgb Hct MCV MCH MCHC RDW Plt Count Neut % (Auto) Lymph % (Auto) [place] % (Auto) Eos % (Auto) Baso % (Auto) Lymph # (Auto) [place] # (Auto) Baso # (Auto) Total Counted Seg Neutrophils % Lymphocytes % (Manual) Monocytes % (Manual) Eosinophils % (Manual) Neutrophils # (Manual) RBC Morphology Poikilocytosis Anisocytosis Sodium Potassium Chloride Carbon Dioxide BUN Creatinine Estimated GFR BUN/Creatinine Ratio Glucose POC Whole Bld Glucose 140 H 137 H Calcium Blood Type O Positive Antibody Screen Negative Crossmatch See Detail 02/11/25 02/12/25 02/12/25 20:52 06:00 07:36 WBC 8.0 RBC 3.80 L Hgb 7.5 L Hct 25.6 L MCV 67.5 L MCH 19.9 L MCHC 29.5 L RDW 23.2 H Plt Count 241 Neut % (Auto) Not Reportable Lymph % (Auto) Not Reportable [place] % (Auto) Not Reportable Eos % (Auto) Not Reportable Baso % (Auto) Not Reportable Lymph # (Auto) Not Reportable [place] # (Auto) Not Reportable Baso # (Auto) Not Reportable Total Counted 100 Seg Neutrophils % 72.0 H Lymphocytes % (Manual) 17.0 L Monocytes % (Manual) 2.0 Eosinophils % (Manual) 9.0 H Neutrophils # (Manual) 5760 RBC Morphology Not Reportable Poikilocytosis 1+ H Anisocytosis 1+ H Sodium 138 Potassium 4.2 Chloride 102 Carbon Dioxide 28 BUN 22 H Creatinine 1.03 Estimated GFR > 60 BUN/Creatinine Ratio 21.4 Glucose 104 H POC Whole Bld Glucose 162 H 118 H Calcium 8.6 Blood Type Antibody Screen Crossmatch [facility] Medical History Acute anemia Left knee pain B12 deficiency anemia History of tobacco use Microscopic hematuria Chronic anticoagulation History of gross hematuria Benign prostatic hyperplasia with lower urinary tract symptoms COPD (chronic obstructive pulmonary disease) Bradycardia Hypertension Type 2 diabetes mellitus Bladder mass Congestive heart failure Surgical History History of coronary artery bypass graft Anesthesia History of open heart surgery (~2004) Social History household members: family Smoking Status: Former smoker alcohol intake: current Assessment & Plan Time-Based Coding :: [TOTAL MINUTES] spent with patient and on the chart (including review of chart, obtaining history, exam, reviewing outside data, placing orders, documenting exam and treatment plan, and counseling patient) on [DATE].
[2025-02-12] MEDS: INSULIN LISPRO 100 UNIT/ML 3ML VIAL SUBCUT ×2 (11:51→16:38)
--- NOTE | 2025-02-12 14:05 | CM.DPC ---
DCP Cont. Reviewed EMR and team rounds for pt's medical status updates. Provided pt the long-term care application for Medicaid. PROCESS OWNER highlighted the areas for him to complete, and then we will fax it to [facility] on Sunday am. Provided information and how to complete. Plan is still d/c home, likely with Home Health, and [facility] can continue to work with him on an outpatient basis to secure long-term housing.
--- NOTE | 2025-02-12 14:46 | PC.NURSE ---
Day Shift: Distal end of Pts left toe bleeding today at approx 1415. Dressing applied. Dr Garcia has been made aware.
[2025-02-12] MEDS: ATORVASTATIN 20 MG TABLET 40 MG PO (20:43)
[2025-02-12] MEDS: SERTRALINE 50 MG TABLET 25 MG PO (20:44)
[2025-02-13] VITALS (10 sets, daily range): BP systolic 122–131; BP diastolic 45–76; PULSE 67–82; RESP 14–20; TEMP 36.7–37.2; O2SAT 93–100
[2025-02-13] MEDS: diphenhydrAMINE 25 MG TABLET PO ×2 (02:12→22:44)
[2025-02-13 06:19] LABS: Hematocrit 25.0 % (41-53); Hemoglobin 7.4 g/dL (13.5-17.5); Lymphocytes Absolute Auto 1300 /uL (1100-4500); Mean Corpuscular HGB Conc 29.5 % (30-36); Mean Corpuscular Hemoglobin 20.0 PG (26-34); Mean Corpuscular Volume 67.7 fL (80-100); Platelet Count 236 X10^3/uL (150-400)
[2025-02-13 06:20] LABS: Add Manual Diff / Slide Review SLIDE REVIEW
[2025-02-13 06:28] LABS: Blood Urea Nitrogen 30 mg/dL (9-20); Calcium 8.5 mg/dL (8.4-10.2); Carbon Dioxide 29 mmol/L (22-32); Chloride 99 mmol/L (98-107); Estimated Glomerular Filt Rate > 60 mL/min (>60); Glucose 106 mg/dL (70-99); HEMOLYSIS < 15 (0-50); Potassium 4.1 mmol/L (3.4-5.1); Sodium 138 mmol/L (137-145)
[2025-02-13 06:47] LABS: Anisocytosis 2+; Hypochromasia 3+; Poikilocytosis 2+
[2025-02-13 06:48] LABS: Microcytosis 2+
--- NOTE | 2025-02-13 07:14 | PM.PN.1 ---
Subjective Subjective Interval history: Hospital course: 02/11: Patient is diuresed overnight hemoglobin is still at 7 goal is 8 for oxygen carrying capacity in setting of coronary disease and congestive heart failure. Patient did not have any fevers or chills overnight no chest pains or balance 02/12: Patient breathing much more easily net urine output 1400 mL S: He was improved with breathing. His edema is improving, he still has a lot of swelling in his legs and feet. Exam Vital Signs (past 8 hours): - 02/13/25 02:17 Temperature 99.0 F Pulse Rate 73 Respiratory Rate 16 Blood Pressure 129/76 Pulse Oximetry 94 Oxygen Flow Rate 0 Oxygen Delivery Method Room Air Oxygen Flow Rate 0 Narrative Exam Narrative: NAD, alert and oriented. Fluent speech. Lungs are clear, normal rate and effort. Heart is regular, no murmur gallop or rub. Abdomen is soft, non distended. Extremities with 2+ leg and pedal edema. Objective Labs 02/13/25 05:13 02/13/25 05:13 Labs: Laboratory Results - last 24 hr 02/12/25 02/12/25 02/12/25 06:00 07:36 11:35 WBC RBC Hgb Hct MCV MCH MCHC RDW Plt Count Neut % (Auto) Lymph % (Auto) [place] % (Auto) Eos % (Auto) Baso % (Auto) Neut # (Auto) Lymph # (Auto) [place] # (Auto) Eos # (Auto) Baso # (Auto) Total Counted 100 Seg Neutrophils % 72.0 H Lymphocytes % (Manual) 17.0 L Monocytes % (Manual) 2.0 Eosinophils % (Manual) 9.0 H Neutrophils # (Manual) 5760 RBC Morphology Not Reportable Hypochromasia Poikilocytosis 1+ H Anisocytosis 1+ H Microcytosis Sodium Potassium Chloride Carbon Dioxide BUN Creatinine Estimated GFR BUN/Creatinine Ratio Glucose POC Whole Bld Glucose 118 H 138 H Calcium 02/12/25 02/12/25 02/13/25 16:36 20:18 05:13 WBC 7.9 RBC 3.69 L Hgb 7.4 L Hct 25.0 L MCV 67.7 L MCH 20.0 L MCHC 29.5 L RDW 24.4 H Plt Count 236 Neut % (Auto) 66.5 Lymph % (Auto) 16.0 L [place] % (Auto) 8.1 Eos % (Auto) 8.4 H Baso % (Auto) 1.0 Neut # (Auto) 5200 Lymph # (Auto) 1300 [place] # (Auto) 600 Eos # (Auto) 700 H Baso # (Auto) 100 Total Counted Seg Neutrophils % Lymphocytes % (Manual) Monocytes % (Manual) Eosinophils % (Manual) Neutrophils # (Manual) RBC Morphology See below Hypochromasia 3+ H Poikilocytosis 2+ H Anisocytosis 2+ H Microcytosis 2+ H Sodium 138 Potassium 4.1 Chloride 99 Carbon Dioxide 29 BUN 30 H Creatinine 1.16 Estimated GFR > 60 BUN/Creatinine Ratio 25.9 H Glucose 106 H POC Whole Bld Glucose 144 H 118 H Calcium 8.5 PFSH Medical History Acute anemia Left knee pain B12 deficiency anemia History of tobacco use Microscopic hematuria Chronic anticoagulation History of gross hematuria Benign prostatic hyperplasia with lower urinary tract symptoms COPD (chronic obstructive pulmonary disease) Bradycardia Hypertension Type 2 diabetes mellitus Bladder mass Congestive heart failure Surgical History History of coronary artery bypass graft Anesthesia History of open heart surgery (~2004) Social History household members: family Smoking Status: Former smoker alcohol intake: current Assessment & Plan Assessment & Plan narrative: Acute on chronic diastolic congestive heart failure with acute hypoxic respiratory failure low suspicion of superimposed community-acquired pneumonia Brisk diuresis Transfuse to hemoglobin greater than 8 for oxygen carrying capacity 1.8 mL fluid restriction Strict measurement of intake and output Chronic iron deficiency anemia on iron supplementation and anticoagulated for atrial fibrillation Stool guaiac for evaluation of possible ongoing blood loss May need upper and lower endoscopy at some point when patient is more stable probably as an outpatient Chronic coronary artery disease: Continue all core measures Chronic atrial fibrillation: Continue rate control and CVA prophylaxisCOPD: Continue maintenance inhalers No signs of acute exacerbation 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 -monitor breathing with exertion. -monitor electrolytes. MINGO: Anticipate February 14 is likely when he can return home if he response to diuresis. DVT prophylaxis: Covered with anticoagulation Time-Based Coding :: [TOTAL MINUTES] spent with patient and on the chart (including review of chart, obtaining history, exam, reviewing outside data, placing orders, documenting exam and treatment plan, and counseling patient) on [DATE].
[2025-02-13] MEDS: PANTOPRAZOLE DR 20 MG TABLET PO (07:15)
[2025-02-13] MEDS: BUDESONIDE 0.5 MG/2 ML NEB INH ×2 (08:59→19:28)
[2025-02-13] MEDS: ALBUTEROL/IPRATROPIUM 3 ML AMPUL INH ×2 (08:59→19:28)
[2025-02-13] MEDS: APIXABAN 5 MG TABLET PO ×2 (09:10→21:10)
[2025-02-13] MEDS: FERROUS SULFATE 325 MG TABLET PO (09:10)
[2025-02-13] MEDS: ASPIRIN EC 81 MG TABLET PO (09:47)
[2025-02-13] MEDS: CLOPIDOGREL 75 MG TABLET PO (09:48)
[2025-02-13] MEDS: METFORMIN HCL 500 MG TABLET PO ×2 (09:48→17:12)
[2025-02-13] MEDS: METOPROLOL ER 25 MG TABLET PO ×2 (09:49→21:11)
[2025-02-13] MEDS: FUROSEMIDE 80 MG in SODIUM CHLORIDE 0.9% 50 ML 116 MG IV ×2 (09:57→16:56)
--- NOTE | 2025-02-13 11:09 | CM.DPNOTE ---
DCP Continued: Reviewed EMR and team rounds for pt?s medical status. Per MD, pt is estimated to discharge on 02/14 after more diuresis and stabilization of CHF. DCP entered room, introduced self and role. Patient states he has received the Medicaid application from other DCP and hopes to complete it at home with the support of his sister and with more access to required financial documentation. Pt declined this DOOR TENDER's offer to fax in completed form, I will follow through with sending it in after I leave here. DCP discussed home health for new CHF, pt in agreement and did not state a preference for HH agency. Gave consent for this DCP to send referral per vendor calendar. DCP sent referral to [facility] via secure email, along with signed [id number] encounter. Plan: Anticipating dc home on 02/14 with sister to transport, [facility] pending acceptance for home health. CM Team will continue to follow for coordination of discharge plans. TONIA BaezSW
[2025-02-13] MEDS: DOXYCYCLINE 100 MG in SODIUM CHLORIDE 0.9% 100 ML IV ×2 (13:15→22:43)
--- NOTE | 2025-02-13 17:27 | PC.NURSE ---
Pt denies discomfort. Dsg to the left big toe and under the fourth, changed x 1 SL intact LFA Sitting in chair moist day Call light w/in reach, pt calls appropriately for needs. Continue w/plan of care.
[2025-02-13] MEDS: ATORVASTATIN 20 MG TABLET 40 MG PO (21:10)
[2025-02-13] MEDS: SERTRALINE 50 MG TABLET 25 MG PO (21:10)
[2025-02-14 00:01] VITALS: BP 122/75; PULSE 82; RESP 16; TEMP 36.7; O2SAT 93
[2025-02-14 04:00] VITALS: BP 120/53; PULSE 77; RESP 16; TEMP 36.9; O2SAT 94
--- NOTE | 2025-02-14 06:14 | W.PC.ACHO ---
MD notified of BP; this RN directed to hold lasix administration until day team comes.
[2025-02-14] MEDS: PANTOPRAZOLE DR 20 MG TABLET PO (06:31)
[2025-02-14 06:33] LABS: Hematocrit 28.1 % (41-53); Hemoglobin 8.3 g/dL (13.5-17.5); Lymphocytes Absolute Auto 2400 /uL (1100-4500); Mean Corpuscular HGB Conc 29.7 % (30-36); Mean Corpuscular Hemoglobin 19.8 PG (26-34); Mean Corpuscular Volume 66.7 fL (80-100); Platelet Count 290 X10^3/uL (150-400)
[2025-02-14 06:34] LABS: Add Manual Diff / Slide Review SLIDE REVIEW
[2025-02-14] MEDS: ACETAMINOPHEN 325 MG TABLET 975 MG PO (06:58)
[2025-02-14 07:15] LABS: Blood Urea Nitrogen 36 mg/dL (9-20); Calcium 8.6 mg/dL (8.4-10.2); Carbon Dioxide 32 mmol/L (22-32); Chloride 96 mmol/L (98-107); Estimated Glomerular Filt Rate > 60 mL/min (>60); Glucose 99 mg/dL (70-99); HEMOLYSIS < 15 (0-50); Potassium 4.0 mmol/L (3.4-5.1); Sodium 138 mmol/L (137-145)
[2025-02-14 07:43] LABS: Anisocytosis 3+
[2025-02-14 07:44] LABS: Microcytosis 2+
[2025-02-14 07:45] LABS: Hypochromasia 3+
[2025-02-14 08:00] VITALS: BP 113/56; PULSE 65; RESP 17; RESP 20; TEMP 36.6; O2SAT 95
[2025-02-14] MEDS: FERROUS SULFATE 325 MG TABLET PO (08:15)
[2025-02-14] MEDS: CLOPIDOGREL 75 MG TABLET PO (08:15)
[2025-02-14] MEDS: METFORMIN HCL 500 MG TABLET PO (08:15)
[2025-02-14] MEDS: APIXABAN 5 MG TABLET PO (08:15)
[2025-02-14] MEDS: ASPIRIN EC 81 MG TABLET PO (08:15)
[2025-02-14 08:40] VITALS: BP 120/60
[2025-02-14] MEDS: METOPROLOL ER 25 MG TABLET PO (08:40)
[2025-02-14] MEDS: FUROSEMIDE 80 MG in SODIUM CHLORIDE 0.9% 50 ML 116 MG IV (08:40)
[2025-02-14 08:49] VITALS: PULSE 67; RESP 18; O2SAT 100
[2025-02-14] MEDS: BUDESONIDE 0.5 MG/2 ML NEB INH (08:49)
[2025-02-14] MEDS: ALBUTEROL/IPRATROPIUM 3 ML AMPUL INH (08:49)
[2025-02-14 10:25] VITALS: BP 132/68
[2025-02-14] MEDS: SODIUM CHLORIDE 0.9% FLUSH 10 ML IV (10:26)
--- NOTE | 2025-02-14 10:31 | PC.NURSE ---
Addendum entered by Eleni Baker R.N. 02/14/25 13:04: Pt given D/C instructions w/ understanding. Dsg to left toes remains CDI Denies any issues at D/C Pt escorted by staff via W/C to waiting vehicle D/C in stable status Original Note: Pt up ad [place] in room Denies any discomfort Dsg to left foot CDI SL intact/patent. MD in to see; D/C orders recieved. Transportation available after lunch Call light w/in reach, pt calls appropriately for needs.
--- NOTE | 2025-02-14 10:42 | PM.DS.1 ---
History of Present Illness History of Present Illness Chief complaint: low hemoglobin and SOB Narrative: From H&P: 74-year-old male with history of CAD status post remote CABG, COPD, not on home oxygen, atrial fibrillation, anticoagulated with Eliquis, recurrent anemia with prior transfusion due to hematuria from bladder cancer. He saw his PCP Dr. Dyson in clinic today and was found to have a very low blood sugar and Hb. He denies black stools, blood in his urine, epistaxis. He has had some increased shortness of breath. No recent cough. Denies chest pain. ED workup showing Hb of 6.5, Iron 29, ferritin 7. CXR showing congestion, possible infiltrates. BNP elevated. Diagnosed with iron deficiency anemia, CHF, acute hypoxemic respiratory failure, possible PNA, hypoglycemia and admitted for blood transfusion, glucose monitoring, empiric abx and diuresis. Discharge Providers Provider Date of admission: 02/10/25 20:59 Discharge Date: 02/14/25 Primary care physician: Chau Dyson, Consults: 02/10/25 23:52 [place] to [facility] [place] [employer] Engineering Technologist Routine Comment: Manufacturing Engineering Technologist Consult needed for:: Unable to care for self Comment: Pt showering once per month and having difficulty with ADLs. Would like to discuss assistive facilities 02/13/25 10:49 Consult to Home Health Routine Comment: RN, PT, OT, HH Aide Reason For Exam: CHF, Anemia Discharge provider: Odilon Davidson MD Summary Hospital Course Discharge Diagnosis: 1. Acute on chronic diastolic congestive heart failure with acute hypoxic respiratory failure low suspicion of superimposed community-acquired pneumonia. 2. Chronic iron deficiency anemia on iron supplementation and anticoagulated for atrial fibrillation. 3. Chronic coronary artery disease. 4. Chronic atrial fibrillation. 5. 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 Hospital Course: He was admitted with shortness a breath and edema and diuresed. He was found initially to be anemic and had a hemoglobin is 6.5. His chest x-ray revealed pulmonary edema. He was initially diuresing covered empirically with antibiotics for possible pneumonia. He was given 2 units of blood. An echo from 2023 revealed an EF of 65%. Ultimately, he improved with regards to breathing as well as his edema. His hemoglobin was stable at 8. On the day of discharge he was felt to be stable for discharge and will be given oral diuretics until he can follow up with primary care. In addition he was I asked to inquire about a gastroenterology referral given his anemia and history of iron-deficiency anemia so that he can be considered for endoscopic workup. Status at Discharge Cognitive/behavioral status at discharge: oriented Functional status at discharge: independent ambulation Overall status at discharge: patient is back to baseline Time Spent with Patient Time spent: Greater than 30 minutes Exam Vital Signs (past 8 hours): - 02/14/25 04:00 02/14/25 08:00 02/14/25 08:00 Temperature 98.4 F 97.9 F Pulse Rate 77 65 Respiratory Rate 16 20 17 Blood Pressure 120/53 L 113/56 L Pulse Oximetry 94 95 Oxygen Delivery Method Oxygen Flow Rate 0 0 02/14/25 08:40 02/14/25 08:49 02/14/25 10:25 Temperature Pulse Rate 67 Respiratory Rate 18 Blood Pressure 120/60 132/68 Pulse Oximetry 100 Oxygen Delivery Method Room Air Oxygen Flow Rate Oxygen Delivery Method Room Air Oxygen Flow Rate 0 Narrative Exam Narrative: NAD, alert and oriented. Fluent speech. Lungs are clear, normal rate and effort. Heart is regular, no murmur gallop or rub. Abdomen is soft, non distended. Extremities are free of edema. Objective ECG Impression: Intervals [place] Rate: 68 P: 60 IA: 160 QRS: 1 QRSD: 110 T: 68 QT: 426 QTc: 452 Interpretive Statements Sinus rhythm with premature atrial complexes Low voltage QRS Cannot rule out Inferior infarct , age undetermined Imaging Chest x-ray: Radiologist's impression: Patchy bibasilar infrahilar alveolar opacities. With central venous congestion, differential diagnosis includes CHF and pneumonia. Labs 02/14/25 06:20 02/14/25 06:20 Labs: Laboratory Results - last 24 hr 02/13/25 02/13/25 02/13/25 11:48 16:42 19:49 WBC RBC Hgb Hct MCV MCH MCHC RDW Plt Count Neut % (Auto) Lymph % (Auto) [place] % (Auto) Eos % (Auto) Baso % (Auto) Neut # (Auto) Lymph # (Auto) [place] # (Auto) Eos # (Auto) Baso # (Auto) RBC Morphology Hypochromasia Anisocytosis Microcytosis Sodium Potassium Chloride Carbon Dioxide BUN Creatinine Estimated GFR BUN/Creatinine Ratio Glucose POC Whole Bld Glucose 132 H 139 H 126 H Calcium 02/14/25 02/14/25 06:20 08:02 WBC 8.3 RBC 4.21 L Hgb 8.3 L Hct 28.1 L MCV 66.7 L MCH 19.8 L MCHC 29.7 L RDW 24.9 H Plt Count 290 Neut % (Auto) 53.6 Lymph % (Auto) 28.8 [place] % (Auto) 6.7 Eos % (Auto) 8.5 H Baso % (Auto) 2.4 H Neut # (Auto) 4400 Lymph # (Auto) 2400 [place] # (Auto) 600 Eos # (Auto) 700 H Baso # (Auto) 200 H RBC Morphology See below Hypochromasia 3+ H Anisocytosis 3+ H Microcytosis 2+ H Sodium 138 Potassium 4.0 Chloride 96 L Carbon Dioxide 32 BUN 36 H Creatinine 1.15 Estimated GFR > 60 BUN/Creatinine Ratio 31.3 H Glucose 99 POC Whole Bld Glucose 111 H Calcium 8.6 PFSH Medical History Acute anemia Left knee pain B12 deficiency anemia History of tobacco use Microscopic hematuria Chronic anticoagulation History of gross hematuria Benign prostatic hyperplasia with lower urinary tract symptoms COPD (chronic obstructive pulmonary disease) Bradycardia Hypertension Type 2 diabetes mellitus Bladder mass Congestive heart failure Surgical History History of coronary artery bypass graft Anesthesia History of open heart surgery (~2004) Social History household members: family Smoking Status: Former smoker alcohol intake: current Discharge Assessment & Plan Assessment and Plan Assessment: 1. Acute on chronic diastolic congestive heart failure with acute hypoxic respiratory failure low suspicion of superimposed community-acquired pneumonia. 2. Chronic iron deficiency anemia on iron supplementation and anticoagulated for atrial fibrillation. 3. Chronic coronary artery disease. 4. Chronic atrial fibrillation. 5. 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 Plan of Treatment: Discharge home on diuretics. He was asked to follow up in the next 1-2 weeks with primary care. Given the need for 2 units of blood, repeat colonoscopy is also recommended in spite of the fact that he has not had clinical evidence or report of melena or bright red blood per rectum. He denies any gross hematuria although this was a problem in the past. Discharge Plan Discharge Plan Patient Disposition: Home Provider Discharge Comment: Stable for discharge home. Discharge orders & Medications Prescriptions: New furosemide [Lasix] 40 mg tablet 40 mg PO DAILY Qty: 30 0RF potassium chloride 10 mEq capsule, extended release 10 meq PO DAILY Qty: 30 0RF Continued metformin 850 mg tablet 850 mg PO BID Qty: 180 3RF ketoconazole 2 % cream 1 applic topical 2XW Qty: 30 11RF budesonide-formoterol [Symbicort] 160-4.5 mcg/actuation HFA aerosol inhaler 1 puff inhalation BID Qty: 10.2 3RF omeprazole 20 mg capsule,delayed release(DR/EC) 20 mg PO DAILY Qty: 90 0RF clopidogrel 75 mg tablet 75 mg PO DAILY Qty: 90 0RF metoprolol succinate 25 mg tablet extended release 24 hr 25 mg PO BID Qty: 180 0RF apixaban 5 mg tablet 5 mg PO BID Qty: 180 3RF glipizide 2.5 mg tablet 2.5 mg PO BID Qty: 180 0RF sertraline 25 mg tablet 25 mg PO ONCE PM Qty: 90 0RF allopurinol 300 mg tablet 300 mg PO DAILY Qty: 90 3RF ferrous gluconate 324 mg (38 mg iron) tablet 324 mg PO DAILY Qty: 90 0RF clotrimazole 1 % cream 1 applic topical DAILY Qty: 30 11RF atorvastatin 40 mg tablet 40 mg PO ONCE PM Qty: 90 3RF fluticasone propionate 50 mcg/actuation spray,suspension 2 spray intranasal DAILY Qty: 16 11RF hydrocortisone 2.5 % cream 1 applic topical DAILY Qty: 20 11RF (DME) blood-glucose meter Misc See Rx Instructions .Route Qty: 1 1RF Rx Instructions: use to test blood sugars BID (DME) Blood Glucose Test Strip See Rx Instructions .Route Qty: 50 3RF Rx Instructions: use to test blood sugars bid (DME) lancets Misc See Rx Instructions .Route Qty: 100 2RF Rx Instructions: use to test blood sugars bid tiotropium bromide [Spiriva with HandiHaler] 18 mcg capsule, w/inhalation device 18 mcg inhalation DAILY Qty: 90 5RF aspirin 81 mg tablet,delayed release (DR/EC) 81 mg PO DAILY Follow up/Referrals: Chau Dyson, [Primary Care Provider, Family Practice] Diet/Activity/Treatments Diet: Low-sodium Activity: As tolerated. Visit Report/Discharge Packet Instructions: DI for Heart Failure Stand Alone Forms: Patient Portal/API Discharge Data Primary Care Provider: Chau Dyson
--- NOTE | 2025-02-14 13:52 | CM.DPC ---
DCP Discharge Home Per MD, pt is medically stable to d/c home today with outpt f/u and no identified barriers to discharge. Per RN, discharge instructions provided and family arrived to provide transport and no concerns noted. Secure emailed discharge summary to [facility] and F2[facility] previously sent. TEMO Morales
== END 2025-02-14 13:05 | disposition home health service (06) | DRG 291 ==
LOC: ED 20:58 → AC 21:00
PROVIDERS: Emergency Medicine; Internal Medicine; Admitting Provider Internal Medicine; Emergency Provider Emergency Medicine; PCP Family Medicine; Referring Provider Emergency Medicine; Visit Provider Internal Medicine
DX: I11.0 Hypertensive heart disease with heart failure (principal); I50.33 Acute on chronic diastolic (congestive) heart failure; J96.01 Acute respiratory failure with hypoxia; J18.9 Pneumonia, unspecified organism; I48.20 Chronic atrial fibrillation, unspecified; J44.0 Chronic obstructive pulmonary disease with (acute) lower respiratory infection; I25.10 Atherosclerotic heart disease of native coronary artery without angina pectoris; D50.9 Iron deficiency anemia, unspecified; E11.649 Type 2 diabetes mellitus with hypoglycemia without coma; C67.9 Malignant neoplasm of bladder, unspecified; R31.9 Hematuria, unspecified; J44.9 Chronic obstructive pulmonary disease, unspecified; Z79.84 Long term (current) use of oral hypoglycemic drugs; Z95.1 Presence of aortocoronary bypass graft; Z79.01 Long term (current) use of anticoagulants; Z87.891 Personal history of nicotine dependence; Z79.02 Long term (current) use of antithrombotics/antiplatelets
CPT/HCPCS: 36415; 36430; 71045; 80048; 80053; 81003; 82728; 82962; 83540; 83880; 84484; 85007; 85018; 85025; 85610; 86850; 86900; 86901; 87040; 87086; 87637; 93005; 94640; 94762; 96365; 96375; 99285; 99291; P9016; J0696; J1815; J1938; J2405

== ENCOUNTER → 2025-03-19 15:45 | Outpatient (CLI) | payer MEDICARE, MEDICAID, SELFPAY ==
[2025-02-16 11:28] VITALS: BMI 33.0
[2025-03-19 17:16] LABS: HEMOLYSIS < 15 (0-50); Iron 123 ug/dL (49-181)
[2025-03-19 17:20] LABS: Alanine Aminotransferase 11 IU/L (<50); Albumin 3.8 g/dL (3.5-5.0); Albumin Globulin Ratio 1.4 (1.0-2.8); Alkaline Phosphatase 168 U/L (38-126); Blood Urea Nitrogen 23 mg/dL (9-20); Calcium 9.2 mg/dL (8.4-10.2); Carbon Dioxide 24 mmol/L (22-32); Chloride 103 mmol/L (98-107); Estimated Glomerular Filt Rate > 60 mL/min (>60); Globulin 2.8 g/dL (1.7-4.1); HEMOLYSIS < 15 (0-50); Potassium 4.3 mmol/L (3.4-5.1); Sodium 139 mmol/L (137-145); Total Protein 6.6 g/dL (6.3-8.2)
[2025-03-19 17:29] LABS: Add Manual Diff / Slide Review NO; Lymphocytes Absolute Auto 1000 /uL (1100-4500); Mean Corpuscular HGB Conc 29.1 % (30-36); Mean Corpuscular Hemoglobin 20.2 PG (26-34); Mean Corpuscular Volume 69.4 fL (80-100); Platelet Count 281 X10^3/uL (150-400)
[2025-03-19 17:30] LABS: Percent Iron Saturation 28 % (20-50); Total Iron Binding Capacity 443 ug/dL (261-462); Transferrin 352 mg/dL (206-381)
[2025-03-19 18:07] LABS: Vitamin B12 274 pg/mL (239-931)
[2025-03-19 18:09] LABS: Glucose 40 mg/dL (70-99)
[2025-03-19 18:15] LABS: Hemoglobin A1C% w Est Avg Glu < 4.0 % (4.0-6.0)
[2025-03-19 18:41] LABS: Hematocrit 20.9 % (41-53); Hemoglobin 6.1 g/dL (13.5-17.5)
== END ==
PROVIDERS: PCP Family Medicine; Referring Provider Family Medicine; Visit Provider Family Medicine
DX: I50.9 Heart failure, unspecified (principal); D51.9 Vitamin B12 deficiency anemia, unspecified; E11.59 Type 2 diabetes mellitus with other circulatory complications; D64.9 Anemia, unspecified
CPT/HCPCS: 36415; 80053; 82607; 83036; 83540; 83550; 85025

== ENCOUNTER 2025-03-19 20:03 | Emergency (ER) | payer MEDICARE, MEDICAID, SELFPAY ==
[2025-02-16 11:28] VITALS: BMI 33.0
[2025-03-19] VITALS (10 sets, daily range): BP systolic 129–138; BP diastolic 57–64; PULSE 72–84; RESP 17–18; TEMP 36.8–36.9; O2SAT 93–97; BMI 32.3
[2025-03-19 21:17] LABS: Add Manual Diff / Slide Review NO; Lymphocytes Absolute Auto 1200 /uL (1100-4500); Mean Corpuscular HGB Conc 28.9 % (30-36); Mean Corpuscular Hemoglobin 20.3 PG (26-34); Mean Corpuscular Volume 70.1 fL (80-100); Platelet Count 262 X10^3/uL (150-400)
[2025-03-19 21:24] LABS: Hematocrit 20.0 % (41-53); Hemoglobin 5.8 g/dL (13.5-17.5)
[2025-03-19 21:53] LABS: Alanine Aminotransferase 10 IU/L (<50); Albumin 3.8 g/dL (3.5-5.0); Albumin Globulin Ratio 1.4 (1.0-2.8); Alkaline Phosphatase 145 U/L (38-126); Blood Urea Nitrogen 21 mg/dL (9-20); Calcium 8.7 mg/dL (8.4-10.2); Carbon Dioxide 18 mmol/L (22-32); Chloride 103 mmol/L (98-107); Estimated Glomerular Filt Rate > 60 mL/min (>60); Globulin 2.8 g/dL (1.7-4.1); Glucose 73 mg/dL (70-99); HEMOLYSIS < 15 (0-50); Potassium 4.0 mmol/L (3.4-5.1); Sodium 137 mmol/L (137-145); Total Protein 6.6 g/dL (6.3-8.2)
--- NOTE | 2025-03-19 23:13 | ED.RECABL ---
HPI - Recheck/Abnormal Lab/Rx General Chief Complaint: Recheck/Abnormal Lab/Rx Stated Complaint: PCP ref abnormal labs Time Seen by Provider: 03/19/25 23:13 Source: patient Mode of arrival: Ambulatory History of Present Illness HPI narrative: 74-year-old male with history of recurrent anemia, had blood draw done today in preparation for his PCP office visit on Sunday, was called because of low hemoglobin, advised to get another transfusion. History of CAD status post remote CABG, COPD, no home oxygen, history of atrial fibrillation, chronic anticoagulation, recurrent anemia with prior transfusion last year, also had transfusion last month February 2025 in context of anemia without obvious external blood loss, and pneumonia admission here. No signs or symptoms of active GI bleeding at this time. Denies black or red stools. Denies gross hematuria. Denies nosebleeds. No known external bleeding. Takes blood thinner medication Eliquis. Denies chest pain, shortness of breath, weakness. Related Data Home Medications ?Medication ?Instructions ?Recorded ?Confirmed aspirin 81 mg tablet,delayed 81 mg PO DAILY 02/10/25 03/06/25 release Previous Rx's ?Medication ?Instructions ?Recorded blood sugar diagnostic (Blood #50 ea 11/23/23 Glucose Test strips) blood-glucose meter #1 ea 11/23/23 lancets #100 ea 11/23/23 ketoconazole 2 % topical cream 1 applic topical 2XW #30 grams 02/13/24 clopidogrel 75 mg tablet 75 mg PO DAILY #90 tabs 12/02/24 metoprolol succinate 25 mg 25 mg PO BID #180 tabs 12/10/24 tablet,extended release 24 hr apixaban 5 mg tablet 5 mg PO BID #180 tabs 12/15/24 glipizide 2.5 mg tablet 2.5 mg PO BID #180 tabs 12/19/24 tiotropium bromide 18 mcg capsule 18 mcg inhalation DAILY #90 12/23/24 with inhalation device (Spiriva inhalations with HandiHaler) allopurinol 300 mg tablet 300 mg PO DAILY #90 tabs 01/05/25 ferrous gluconate 324 mg (38 mg 324 mg PO DAILY #90 tabs 01/12/25 iron) tablet atorvastatin 40 mg tablet 40 mg PO ONCE PM #90 tabs 01/28/25 clotrimazole 1 % topical cream 1 applic topical DAILY #30 grams 01/28/25 fluticasone propionate 50 2 spray intranasal DAILY #16 grams 01/28/25 mcg/actuation nasal spray,suspension hydrocortisone 2.5 % topical cream 1 applic topical DAILY #20 grams 01/28/25 furosemide 40 mg tablet (Lasix) 40 mg PO DAILY #30 tabs 02/14/25 potassium chloride 10 mEq 10 meq PO DAILY #30 caps 02/14/25 capsule,extended release sertraline 25 mg tablet 25 mg PO QPM #90 tabs 02/26/25 metformin 850 mg tablet 850 mg PO BID #180 tabs 03/05/25 omeprazole 20 mg capsule,delayed 20 mg PO DAILY #90 caps 03/05/25 release hydroxyzine HCl 50 mg tablet 50 mg PO BEDTIME #90 tabs 03/06/25 blood sugar diagnostic (Blood #50 ea 03/10/25 Glucose Test strips) blood-glucose meter #1 ea 03/10/25 budesonide-formoterol HFA 160 1 puff inhalation BID #2 ea 03/10/25 mcg-4.5 mcg/actuation aerosol inhaler (Symbicort) lancets 32 gauge #100 ea 03/10/25 Allergies Allergy/AdvReac Type Severity Reaction Status Date / Time No Known Drug Allergies Allergy Verified 03/19/25 20:28 Patient History Medical History Acute anemia Left knee pain B12 deficiency anemia History of tobacco use Microscopic hematuria Chronic anticoagulation History of gross hematuria Benign prostatic hyperplasia with lower urinary tract symptoms COPD (chronic obstructive pulmonary disease) Bradycardia Hypertension Type 2 diabetes mellitus Bladder mass Congestive heart failure Surgical History History of coronary artery bypass graft Anesthesia History of open heart surgery (~2004) Social History household members: family Smoking Status: Former smoker alcohol intake: current Smoking Status: Former smoker tobacco type: cigarettes alcohol intake frequency: a few times a month Alcohol type: beer Exam Narrative Exam Narrative: GENERAL: Well-developed patient, in mild distress. HEAD: Atraumatic. Normocephalic. EYES: Pupils equal round and reactive. Extraocular motions intact. No scleral icterus. No injection or drainage. ENT: Nose without bleeding, purulent drainage. Throat without erythema, tonsillar hypertrophy or exudate. Airway patent. NECK: Trachea midline. Non tender CARDIOVASCULAR: Regular rate and rhythm without murmurs, gallops, or rubs. RESPIRATORY: Clear to auscultation. Breath sounds equal bilaterally. No wheezes, rales, or rhonchi. GASTROINTESTINAL: Abdomen soft, non-tender, nondistended. EXTREMITIES: No edema or joint tenderness. BACK: Nontender without deformity or crepitance. No flank tenderness. NEURO: AOx3. Motor functions grossly nonfocal. SKIN: No rash or erythema of visible areas Initial Vital Signs Initial Vital Signs: Vital Signs Temperature 98.3 F 03/19/25 20:29 Pulse Rate 82 03/19/25 20:29 Respiratory Rate 17 03/19/25 20:29 Blood Pressure 131/62 03/19/25 20:29 Pulse Oximetry 97 03/19/25 20:29 Oxygen Delivery Method Room Air 03/19/25 20:29 Course Orders Ordered: Discontinued Medications Furosemide (Furosemide 40 Mg/4 Ml Vial) 20 mg IV NOW ONE Stop: 03/19/25 23:25 Last Admin: 03/20/25 00:56 Dose: 20 mg Documented By: REYNA Vital Signs Vital signs: Vital Signs - 8 hr 03/19/25 22:11 03/19/25 22:11 03/19/25 22:30 Temperature Pulse Rate 79 84 Respiratory Rate Blood Pressure 136/60 Pulse Oximetry 94 93 03/19/25 22:30 03/19/25 22:40 03/19/25 22:41 Temperature 98.5 F Pulse Rate 72 Respiratory Rate 18 Blood Pressure 136/63 134/57 L 134/57 L Pulse Oximetry 03/19/25 22:41 03/19/25 23:00 03/19/25 23:00 Temperature Pulse Rate 80 80 Respiratory Rate Blood Pressure 129/60 Pulse Oximetry 93 95 03/19/25 23:01 03/19/25 23:20 03/19/25 23:20 Temperature 98.3 F Pulse Rate 78 83 Respiratory Rate 18 Blood Pressure 129/60 138/64 Pulse Oximetry 95 03/19/25 23:30 03/19/25 23:40 03/19/25 23:40 Temperature Pulse Rate 81 81 Respiratory Rate Blood Pressure 136/63 Pulse Oximetry 96 96 03/20/25 00:00 03/20/25 00:00 03/20/25 00:20 Temperature Pulse Rate 81 80 Respiratory Rate Blood Pressure 140/63 Pulse Oximetry 95 95 03/20/25 00:20 03/20/25 00:30 03/20/25 00:40 Temperature Pulse Rate 80 79 Respiratory Rate Blood Pressure 141/64 H Pulse Oximetry 95 94 03/20/25 00:40 03/20/25 00:47 03/20/25 00:47 Temperature Pulse Rate 80 Respiratory Rate Blood Pressure 144/67 H 155/61 H Pulse Oximetry 94 03/20/25 00:53 03/20/25 01:00 03/20/25 01:00 Temperature 97.9 F Pulse Rate 79 79 Respiratory Rate 16 Blood Pressure 155/61 H 141/67 H Pulse Oximetry 94 03/20/25 01:16 03/20/25 01:16 03/20/25 01:17 Temperature 98.1 F Pulse Rate 83 83 Respiratory Rate 18 Blood Pressure 155/71 H 155/71 H Pulse Oximetry 94 03/20/25 01:20 03/20/25 01:20 03/20/25 01:30 Temperature Pulse Rate 84 80 Respiratory Rate Blood Pressure 155/73 H Pulse Oximetry 95 94 03/20/25 01:35 03/20/25 01:35 03/20/25 01:35 Temperature 98 F Pulse Rate 80 81 Respiratory Rate 14 Blood Pressure 142/60 H 142/60 H Pulse Oximetry 03/20/25 01:40 03/20/25 01:40 03/20/25 02:00 Temperature Pulse Rate 77 Respiratory Rate Blood Pressure 130/57 L 147/62 H Pulse Oximetry 93 03/20/25 02:00 03/20/25 02:21 03/20/25 02:21 Temperature Pulse Rate 80 82 Respiratory Rate Blood Pressure 133/62 Pulse Oximetry 92 95 03/20/25 02:30 03/20/25 03:07 Temperature 98.3 F Pulse Rate 80 77 Respiratory Rate 18 Blood Pressure 143/67 H Pulse Oximetry 93 MDM - Recheck/Abnormal Lab/Rx Lab Data Attestation: I reviewed the patient's lab results. Lab results narrative: White blood cell count 46592, hemoglobin 5.8 low, platelets 262,000. Glucose 73. BUN 21 creatinine 1.09. Serum CO2 18. Electrolytes unremarkable. Blood type O positive. 03/20/25 04:21 03/19/25 21:25 Labs: Lab Results 03/19/25 03/19/25 03/20/25 Range/Units 20:55 21:25 04:21 WBC 10.1 (4.5-11.0) X10^3/uL RBC 2.86 L (4.5-5.9) X10^6/uL Hgb 5.8 L* 7.9 L (13.5-17.5) g/dL Hct 20.0 L* 26.4 L (41-53) % MCV 70.1 L (80-100) fL MCH 20.3 L (26-34) PG MCHC 28.9 L (30-36) % RDW 23.5 H (11.6-14.8) % Plt Count 262 (150-400) X10^3/uL Neut % (Auto) 78.3 H (50-75) % Lymph % (Auto) 11.7 L (25-40) % [place] % (Auto) 5.7 (3-14) % Eos % (Auto) 3.6 (2-4) % Baso % (Auto) 0.7 (0-2) % Neut # (Auto) 7900 H (2784-0963) /uL Lymph # (Auto) 1200 (9278-6315) /uL [place] # (Auto) 600 (0-900) /uL Eos # (Auto) 400 (0-450) /uL Baso # (Auto) 100 (0-100) /uL Nucleated RBCs Cancelled Hypersegmented Neuts Cancelled Hypogranular Neuts Cancelled Reactive Lymphocytes Cancelled Smudge Cells Cancelled Other Cell Type Cancelled Toxic Granulation Cancelled Toxic Vacuolation Cancelled Dohle Bodies Cancelled Rosmery Rods Cancelled WBC Morphology Comment Cancelled Platelet Estimate Cancelled Clumped Platelets Cancelled Plt Morphology Comment Cancelled RBC Morphology Cancelled Dimorphic RBCs Cancelled Polychromasia Cancelled Hypochromasia Cancelled Poikilocytosis Cancelled Basophilic Stippling Cancelled Anisocytosis Cancelled Microcytosis Cancelled Macrocytosis Cancelled Spherocytes Cancelled Pappenheimer Bodies Cancelled Sickle Cells Cancelled Target Cells Cancelled Tear Drop Cells Cancelled Ovalocytes Cancelled Stomatocytes Cancelled Helmet Cells Cancelled Gue[employer] Bodies Cancelled [place] Rings Cancelled [place] Cells Cancelled Acanthocytes (Spur) Cancelled Rouleaux Cancelled Schistocytes Cancelled Sodium 137 (137-145) mmol/L Potassium 4.0 (3.4-5.1) mmol/L Chloride 103 (98-107) mmol/L Carbon Dioxide 18 L (22-32) mmol/L BUN 21 H (9-20) mg/dL Creatinine 1.09 (0.66-1.25) mg/dL Estimated GFR > 60 (>60) mL/min BUN/Creatinine Ratio 19.3 (6-22) Glucose 73 (70-99) mg/dL Calcium 8.7 (8.4-10.2) mg/dL Total Bilirubin 0.4 (0.2-1.3) mg/dL AST 20 (17-59) IU/L ALT 10 (<50) IU/L Alkaline Phosphatase 145 H (38-126) U/L Total Protein 6.6 (6.3-8.2) g/dL Albumin 3.8 (3.5-5.0) g/dL Globulin 2.8 (1.7-4.1) g/dL Albumin/Globulin Ratio 1.4 (1.0-2.8) Blood Type O Positive Antibody Screen Negative Crossmatch See Detail MDM Narrative Medical decision making narrative: 74-year-old male with history of CAD status post prior remote CABG, COPD, history of AFib, chronic anticoagulation, recurrent anemia status post transfusion last year and again last month February 2025, when he was admitted in the hospital for pneumonia in context of his single unit transfusion. Recurrent anemia, prior transfusions, awaiting PCP appointment on Sunday was scheduled for outpatient blood draw, hemoglobin found to be low, here for further evaluation and possible transfusion. Labs sent. Lab data: White blood cell count 39944, hemoglobin 5.8 low, platelets [id number]. Glucose 73. BUN 21 creatinine 1.09. Serum CO2 18. Electrolytes unremarkable. Blood type O positive. Hemoglobin 5.8 low, with normal white blood cell count and platelet lines. Transfused 2 units packed red blood cells. We will obtain hemoglobin after completion of 2nd unit. Anticipate discharge home. History of Lasix use, we will give 20 mg IV Lasix dose between units 1 and 2 packed red blood cells. 0530, Repeat hemoglobin 7.9, no shortness of breath, no fevers, tolerated procedure well. We discussed admission to expedite upper and lower endoscopy evaluations apparently not done last month during hospital stay for pneumonia, to look for sources of gastrointestinal bleeding, if that is is the reason for recurrent anemia, none obvious by history external sources of potential bleeding. Patient declines admission at this time. He would like to follow up Sunday as planned with his PCP and repeat the hemoglobin at that time, and to pursue endoscopy evaluations an outpatient so far. Return precautions discussed. Discharged home per patient request. Discharge Plan Departure Patient Disposition: Home Clinical Impression: Anemia, Weakness Activity Restrictions/Additional Instructions: Recurrent anemia of unclear cause, no obvious external sources of bleeding known. No reported bloody stools, bloody urine, nosebleeds, or external obvious sources of bleeding. Transfusion last month, during admission associated with pneumonia and oxygen requirement at that time. Awaiting follow up appointment with your doctor on Sunday in the next few days, had outpatient blood draw today, low hemoglobin level, advised to come to emergency department for possible transfusion. Your hemoglobin was 5.8 confirmed to be low here, and you had generalized weakness psych symptoms. IV transfusion of packed red blood cells given, 2 units. Follow up repeat hemoglobin increased to 7.9. No active bleeding symptoms while in the emergency department for many hours during observation. You felt better. We did discuss admission now to the hospital if we could coordinate upper and/or lower endoscopy evaluations to look for sources of bleeding. You did not want to be admitted at this time. You wanted to follow up with your regular doctor on Sunday, to consider outpatient endoscopy evaluations. Follow up with your regular provider Dr. Dyson on Sunday. Return earlier to this/nearest emergency department for any change worsening symptoms or any concerns prior. Prescriptions: No Action ketoconazole 2 % cream 1 applic topical 2XW Qty: 30 11RF clopidogrel 75 mg tablet 75 mg PO DAILY Qty: 90 0RF metoprolol succinate 25 mg tablet extended release 24 hr 25 mg PO BID Qty: 180 0RF apixaban 5 mg tablet 5 mg PO BID Qty: 180 3RF glipizide 2.5 mg tablet 2.5 mg PO BID Qty: 180 0RF allopurinol 300 mg tablet 300 mg PO DAILY Qty: 90 3RF ferrous gluconate 324 mg (38 mg iron) tablet 324 mg PO DAILY Qty: 90 0RF clotrimazole 1 % cream 1 applic topical DAILY Qty: 30 11RF atorvastatin 40 mg tablet 40 mg PO ONCE PM Qty: 90 3RF fluticasone propionate 50 mcg/actuation spray,suspension 2 spray intranasal DAILY Qty: 16 11RF hydrocortisone 2.5 % cream 1 applic topical DAILY Qty: 20 11RF sertraline 25 mg tablet 25 mg PO QPM Qty: 90 3RF omeprazole 20 mg capsule,delayed release(DR/EC) 20 mg PO DAILY Qty: 90 0RF metformin 850 mg tablet 850 mg PO BID Qty: 180 3RF budesonide-formoterol [Symbicort] 160-4.5 mcg/actuation HFA aerosol inhaler 1 puff inhalation BID Qty: 2 3RF (DME) blood-glucose meter Misc See Rx Instructions .Route Qty: 1 1RF Rx Instructions: use to test blood sugars BID (DME) Blood Glucose Test Strip See Rx Instructions .Route Qty: 50 3RF Rx Instructions: use to test blood sugars bid (DME) lancets Misc See Rx Instructions .Route Qty: 100 2RF Rx Instructions: use to test blood sugars bid tiotropium bromide [Spiriva with HandiHaler] 18 mcg capsule, w/inhalation device 18 mcg inhalation DAILY Qty: 90 5RF hydroxyzine HCl 50 mg tablet 50 mg PO BEDTIME Qty: 90 1RF (DME) blood-glucose meter Misc See Rx Instructions .Route Qty: 1 0RF Rx Instructions: To check blood sugar daily (DME) Blood Glucose Test Strip See Rx Instructions .Route Qty: 50 2RF Rx Instructions: To check blood sugars daily (DME) lancets 32 gauge misc See Rx Instructions .Route Qty: 100 2RF Rx Instructions: To test blood sugar daily aspirin 81 mg tablet,delayed release (DR/EC) 81 mg PO DAILY furosemide [Lasix] 40 mg tablet 40 mg PO DAILY Qty: 30 0RF potassium chloride 10 mEq capsule, extended release 10 meq PO DAILY Qty: 30 0RF Referrals: Chau Dyson, [Primary Care Provider, Family Practice] Stand Alone Forms: Patient Portal/API
[2025-03-20] VITALS (30 sets, daily range): BP systolic 130–175; BP diastolic 57–85; PULSE 76–84; RESP 14–18; TEMP 36.6–36.8; O2SAT 91–95
[2025-03-20] MEDS: FUROSEMIDE 40 MG/4 ML VIAL 20 MG IV (00:56)
[2025-03-20 04:34] LABS: Hematocrit 26.4 % (41-53); Hemoglobin 7.9 g/dL (13.5-17.5)
--- NOTE | 2025-03-20 05:58 | PC.NURSE ---
Pt improved after 2 units will follow up with PCP Sunday
== END 2025-03-20 05:58 | disposition home or self-care (01) ==
PROVIDERS: Emergency Provider Emergency Medicine; PCP Family Medicine
DX: D64.9 Anemia, unspecified (principal); R53.1 Weakness; Z79.01 Long term (current) use of anticoagulants
CPT/HCPCS: 36415; 36430; 80053; 82607; 83036; 83540; 83550; 85014; 85018; 85025; 86850; 86900; 86901; 96374; 99284; P9016; J1938

== ENCOUNTER → 2025-03-23 15:50 | Outpatient (CLI) | payer MEDICARE, MEDICAID, SELFPAY ==
[2025-02-16 11:28] VITALS: BMI 33.0
[2025-03-23 16:50] LABS: Add Manual Diff / Slide Review NO; Hematocrit 27.0 % (41-53); Hemoglobin 8.2 g/dL (13.5-17.5); Lymphocytes Absolute Auto 1000 /uL (1100-4500); Mean Corpuscular HGB Conc 30.5 % (30-36); Mean Corpuscular Hemoglobin 22.4 PG (26-34); Mean Corpuscular Volume 73.3 fL (80-100); Platelet Count 246 X10^3/uL (150-400)
[2025-03-23 18:14] LABS: Vitamin B12 302 pg/mL (239-931)
[2025-03-23 18:42] LABS: Hypochromasia 1+; Poikilocytosis 1+
[2025-03-23 18:43] LABS: Anisocytosis 1+
[2025-03-23 18:44] LABS: Microcytosis 1+
[2025-03-23 18:46] LABS: Spherocytes 1+
[2025-03-25 14:36] LABS: Iron 24 ug/dL (49-181)
== END ==
PROVIDERS: PCP Family Medicine; Referring Provider Family Medicine; Visit Provider Family Medicine
DX: D64.9 Anemia, unspecified (principal)
CPT/HCPCS: 36415; 82607; 83540; 85025

== ENCOUNTER 2025-05-08 08:02 | Day surgery (SDC) | payer MEDICARE, MEDICAID, SELFPAY ==
[2025-02-16 11:28] VITALS: BMI 33.0
--- NOTE | 2025-05-08 | PATH_ITS ---
[facility] Accession Number: [id number] No. of containers..06 Tissue . 01 Material submitted: . PART A: gastrointestinal site - ANTRUM BIOPSY PART B: esophagus, E-G Junction - GE JUNCTION BIOPSY PART C: colon - COLON, TRANSVERSE POLYP 3 PART D: colon - COLON, ASCENDING POLYP X3 PART E: colon - COLON, TRANSVERSE POLYP X2 PART F: colon - COLON, DESCENDING POLYP . 01 Diagnosis: Part A: ANTRUM BIOPSY: Mild features of reactive gastropathy. No Helicobacter organisms identified on H/E stain. No intestinal metaplasia, dysplasia, or malignancy identified. . Specimen Comments: These changes can be seen in a variety of settings, such as with non-steroidal anti-inflammatory drugs (NSAIDs) or bile reflux. . Part B: GE JUNCTION BIOPSY: Gastroesophageal junction mucosa with mild chronic inflammation. No goblet cell metaplasia, dysplasia, or malignancy identified. . Part C: COLON, TRANSVERSE POLYP 3: Scant vegetable matter. No intact tissue identified. . Part D: COLON, ASCENDING POLYP X3: Tubular adenomas. . Part E: COLON, TRANSVERSE POLYP X2: Tubular adenomas. . Part F: COLON, DESCENDING POLYP: Tubular adenoma. [facility] 05/21/2025 1411 Local . 01 Electronically signed: . Kristopher Smith MD, Pathologist NPI- [id number] . 01 Gross description: . A. Received in formalin, labeled with two patient identifiers and antrum biopsy, are three holliday tissue fragments ranging from 0.2 cm to 0.3 cm. Entirely submitted in cassette A1. . B. Received in formalin, labeled with two patient identifiers and GE junction biopsy, are three holliday tissue fragments, all 0.2 cm. Entirely submitted in cassette B1. . C. Received in formalin, labeled with two patient identifiers and 3. Transverse polyp, is one 0.1 cm scant fragment of soft tissue or debris. Entirely submitted in cassette C1. . D. Received in formalin, labeled with two patient identifiers and ascending polyp x3, are three holliday tissue fragments ranging from 0.3 cm to 0.5 cm. Entirely submitted in cassette D1. . E. Received in formalin, labeled with two patient identifiers and transverse polyp x2, are two holliday tissue fragments ranging from 0.5 cm to 0.8 cm. Entirely submitted in cassette E1. . F. Received in formalin, labeled with two patient identifiers and descending polyp, are two holliday tissue fragments ranging from 0.5 cm to 0.7 cm. Entirely submitted in cassette F1. ([id number]) /FRR 05/21/2025 1411 Local . 01 Pathologist provided ICD-10: D12.2, D12.3, D12.4, K20.90, K29.60 . 01 CPT . 718207, [id number], 244052, 326689, [id number], [id number] Performed at: [address] [id number] MD Kristopher Smith MD Phone: [phone]
[2025-05-08 08:30] VITALS: BP 165/74; PULSE 72; RESP 16; TEMP 36.4; O2SAT 92
[2025-05-08] MEDS: LACTATED RINGERS 1,000 ML 42 ML IV (08:46)
--- NOTE | 2025-05-08 09:01 | PM.HP.IH.1 ---
History of Present Illness History of Present Illness Date Patient Seen: 05/08/25 Time Patient Seen: 09:01 Chief complaint: SDC Narrative: Sánchez is a 74-year-old man with anemia. See the prior office note for details. Last colonoscopy about 10 years ago. Takes aspirin, Plavix and Eliquis PFSH Medical History Allergic dermatitis Paroxysmal atrial fibrillation Acute anemia Left knee pain B12 deficiency anemia History of tobacco use Microscopic hematuria Chronic anticoagulation History of gross hematuria Benign prostatic hyperplasia with lower urinary tract symptoms COPD (chronic obstructive pulmonary disease) Bradycardia Hypertension Type 2 diabetes mellitus Bladder mass Congestive heart failure Surgical History History of coronary artery bypass graft Anesthesia History of open heart surgery (~2004) Social History household members: family Smoking Status: Former smoker alcohol intake: current Meds Home Medications and Allergies Home Medications ?Medication ?Instructions ?Recorded ?Confirmed ?Type blood sugar diagnostic (Blood #50 ea 11/23/23 03/31/25 Rx Glucose Test strips) blood-glucose meter #1 ea 11/23/23 03/31/25 Rx lancets #100 ea 11/23/23 03/31/25 Rx ketoconazole 2 % topical cream 1 applic topical 2XW #30 grams 02/13/24 03/31/25 Rx allopurinol 300 mg tablet 300 mg PO DAILY #90 tabs 01/05/25 05/08/25 Rx atorvastatin 40 mg tablet 40 mg PO ONCE PM #90 tabs 01/28/25 05/08/25 Rx clotrimazole 1 % topical cream 1 applic topical DAILY #30 grams 01/28/25 03/31/25 Rx fluticasone propionate 50 2 spray intranasal DAILY #16 grams 01/28/25 03/31/25 Rx mcg/actuation nasal spray,suspension hydrocortisone 2.5 % topical cream 1 applic topical DAILY #20 grams 01/28/25 03/31/25 Rx sertraline 25 mg tablet 25 mg PO QPM #90 tabs 02/26/25 05/08/25 Rx omeprazole 20 mg capsule,delayed 20 mg PO DAILY #90 caps 03/05/25 05/08/25 Rx release hydroxyzine HCl 50 mg tablet 50 mg PO BEDTIME #90 tabs 03/06/25 05/08/25 Rx blood sugar diagnostic (Blood #50 ea 03/10/25 03/31/25 Rx Glucose Test strips) blood-glucose meter #1 ea 03/10/25 03/31/25 Rx budesonide-formoterol HFA 160 1 puff inhalation BID #2 ea 03/10/25 05/08/25 Rx mcg-4.5 mcg/actuation aerosol inhaler (Symbicort) lancets 32 gauge #100 ea 03/10/25 03/31/25 Rx clopidogrel 75 mg tablet 75 mg PO DAILY #90 tabs 03/27/25 05/08/25 Rx metoprolol succinate 25 mg 25 mg PO BID #180 tabs 03/31/25 05/08/25 Rx tablet,extended release 24 hr tiotropium bromide 18 mcg capsule 1 cap inhalation DAILY #90 caps 03/31/25 05/08/25 Rx with inhalation device (Spiriva with HandiHaler) furosemide 40 mg tablet (Lasix) 40 mg PO DAILY #30 tabs 04/02/25 05/08/25 Rx potassium chloride 10 mEq 10 meq PO DAILY #90 caps 04/02/25 Rx capsule,extended release apixaban 5 mg tablet (Eliquis) 5 mg PO BID #180 tabs 04/17/25 05/08/25 Rx ferrous gluconate 324 mg (38 mg 324 mg PO DAILY #90 tabs 04/17/25 05/08/25 Rx iron) tablet prednisone 20 mg tablet 40 mg (2 x 20 mg) PO DAILY #14 tabs 04/29/25 Rx Allergies Allergy/AdvReac Type Severity Reaction Status Date / Time No Known Drug Allergies Allergy Verified 05/08/25 08:24 Exam Vital Signs (past 8 hours): - 05/08/25 08:30 Temperature 97.5 F L Pulse Rate 72 Respiratory Rate 16 Blood Pressure 165/74 H Pulse Oximetry 92 Oxygen Delivery Method Room Air Oxygen Delivery Method Room Air Const General: No acute distress Resp Effort & Inspection: normal respiratory effort Objective Labs Labs: Laboratory Results - last 24 hr 05/08/25 08:27 POC Whole Bld Glucose 271 H Assessment & Plan Assessment and plan (1) Acute anemia: Status: Acute Plan EGD and colonoscopy Time-Based Coding :: [TOTAL MINUTES] spent with patient and on the chart (including review of chart, obtaining history, exam, reviewing outside data, placing orders, documenting exam and treatment plan, and counseling patient) on [DATE]. PROFEE Reed Repairer Document charge(s): No
[2025-05-08 09:56] VITALS: BP 135/63; PULSE 58; RESP 16; TEMP 36; O2SAT 96
--- NOTE | 2025-05-08 09:56 | PM.OP.EC ---
Operative Date/Time/Diagnoses Date of procedure: 05/08/25 Time of procedure: 09:56 Pre-op diagnosis: Anemia Post-op diagnosis: same Procedure & Clinicians Study performed: EGD and colonoscopy Same procedure(s) as scheduled: Yes Surgeon: Salomon Bunn Anesthesia Type: MAC +/- Procedure Notes Procedure in detail: Surgeon: Salomon Bunn MD Anesthesia: Bossman Ross MD Procedure in detail: A timeout was performed. A bite blocked was placed and monitors were attached to the patient. The patient was positioned in the left lateral decubitus position. Sedation was administered. Once the patient was sedated the endoscope was inserted through the bite block and passed through the esophagus and stomach and into the duodenum. The duodenal mucosa appeared normal.. We then withdrew the scope into the stomach. There was no obvious antritis but random biopsies were taken from the antral mucosa with cold forceps. The endoscope was retroflexed and no obvious hiatal hernia was seen. The endoscope was straightned and withdrawn into the esophagus. There were some salmon-colored mucosa near the GE junction less than 2 cm. Random biopsies were taken from the salmon-colored mucosa with cold forceps. The rest of the esophagus was normal. EGD findings: [place]-colored tongues of mucosa less than 2 cm at the GE junction Next we repositioned the patient for a colonoscopy. A digital rectal exam was performed and was normal. The colonoscope was inserted and advanced to the cecum. The appendiceal orifice was identified and photographed. The scope was slowly withdrawn over greater than 6 minutes. There were 3 polyps in the ascending colon, all all less than 1 cm and all removed with cold snare and sent together. There were 3 polyps in the transverse colon, all less than 1 cm, all removed with a cold snare and sent together. There was 1 small polyp in the descending colon, less than 1 cm, removed with a cold snare. The scope was retroflexed in the rectum and mild internal hemorrhoids were noted. Colonoscopy findings: 3 polyps in the ascending colon less than 1 cm, 3 polyps in the transverse colon less than 1 cm, 1 polyp in the descending colon less than 1 cm and mild internal hemorrhoids Total procedural EBL: 5 mL Scope withdrawal time: 16 minutes Sedation minutes: 31 minutes Estimated Blood Loss: 5 Complications: none Post-procedure Disposition: PACU
[2025-05-08 10:01] VITALS: BP 135/63; PULSE 58; RESP 20; O2SAT 98
[2025-05-08 10:11] VITALS: BP 128/78; PULSE 68; RESP 16; TEMP 36.2; O2SAT 98
[2025-05-08 10:14] VITALS: BP 128/74; PULSE 60; RESP 16; TEMP 36.2; O2SAT 98
== END 2025-05-08 10:51 | disposition home or self-care (01) ==
PROVIDERS: PCP Family Medicine; Referring Provider Surgery; Visit Provider Surgery
PROC: 0DJ08ZZ Inspection of Upper Intestinal Tract, Via Natural or Artificial Opening Endoscopic (ICD-10-PCS; CPT 45385; principal; 2025-05-08 09:00)
PROC: 0DJD8ZZ Inspection of Lower Intestinal Tract, Via Natural or Artificial Opening Endoscopic (ICD-10-PCS; CPT 45378; 2025-05-08 09:00)
DX: D50.9 Iron deficiency anemia, unspecified (principal); D12.2 Benign neoplasm of ascending colon; D12.3 Benign neoplasm of transverse colon; D12.4 Benign neoplasm of descending colon; K20.90 Esophagitis, unspecified without bleeding; K64.8 Other hemorrhoids; E11.9 Type 2 diabetes mellitus without complications; I48.0 Paroxysmal atrial fibrillation; I11.0 Hypertensive heart disease with heart failure; I50.9 Heart failure, unspecified; E78.5 Hyperlipidemia, unspecified; K21.9 Gastro-esophageal reflux disease without esophagitis; Z79.01 Long term (current) use of anticoagulants; Z79.82 Long term (current) use of aspirin; Z87.891 Personal history of nicotine dependence
CPT/HCPCS: 45385; 43239; 82962; J2704; J3010; J7120

== ENCOUNTER → 2025-06-01 15:42 | Outpatient (CLI) | payer MEDICARE, MEDICAID, SELFPAY ==
[2025-02-16 11:28] VITALS: BMI 33.0
[2025-06-01 16:54] LABS: Add Manual Diff / Slide Review NO; Hematocrit 37.6 % (41-53); Hemoglobin 11.4 g/dL (13.5-17.5); Lymphocytes Absolute Auto 1300 /uL (1100-4500); Mean Corpuscular HGB Conc 30.2 % (30-36); Mean Corpuscular Hemoglobin 23.4 PG (26-34); Mean Corpuscular Volume 77.6 fL (80-100); Platelet Count 251 X10^3/uL (150-400)
[2025-06-01 17:17] LABS: HEMOLYSIS < 15 (0-50); Iron 98 ug/dL (49-181)
[2025-06-01 17:21] LABS: Anisocytosis 2+; Hypochromasia 1+
[2025-06-01 17:22] LABS: Microcytosis 2+
[2025-06-01 17:28] LABS: Percent Iron Saturation 29 % (20-50); Total Iron Binding Capacity 341 ug/dL (261-462); Transferrin 278 mg/dL (206-381)
[2025-06-01 18:10] LABS: Vitamin B12 358 pg/mL (239-931)
== END ==
PROVIDERS: PCP Family Medicine; Referring Provider Family Medicine; Visit Provider Family Medicine
DX: D50.0 Iron deficiency anemia secondary to blood loss (chronic) (principal); D51.9 Vitamin B12 deficiency anemia, unspecified
CPT/HCPCS: 36415; 82607; 83540; 83550; 85025